=== PATIENT | female | born 1950 | race Caucasian/White ===

== ENCOUNTER → 2017-07-22 | Outpatient (CLI) | payer MEDICARE, OTHER ==
[2017-07-22 13:50] LABS: Appearance,Urine Clear (Clear); Bacteria,Urine Rare /hpf; Bilirubin,Urine Negative (Negative); Blood,Urine Negative (Negative); Color,Urine Light Yellow; Glucose,Urine (UA) Negative (Negative); Ketones,Urine Negative (Negative); Leukocyte Esterase,Urine Trace (Negative); Mucus,Urine Rare /hpf; Nitrite,Urine Negative (Negative); PH, Urine 6.5 (5.0-8.0); Protein,Urine Negative (Negative); Specific Gravity,Urine 1.005 (1.001-1.035); Squamous Epithelial Cell,Urine 1 /hpf (0-4); Urobilinogen,Urine <2.0 mg/dL (<2.0); WBC,Urine 15 /hpf (0-5)
[2017-07-22 13:56] LABS: ALT 43 U/L (9-52); AST 27 U/L (14-36); Albumin 4.5 g/dL (3.5-5.0); Alkaline Phosphatase 95 U/L (38-126); Anion Gap 13 mmol/L; Blood Urea Nitrogen 14 mg/dL (7-17); Calcium 10.1 mg/dL (8.4-10.2); Carbon Dioxide 27 mmol/L (22-30); Chloride 100 mmol/L (98-107); Glucose 86 mg/dL (74-99); Phosphorus 3.5 mg/dL (2.5-4.5); Potassium 3.1 mmol/L (3.5-5.1); Sodium 140 mmol/L (137-145); Total Bilirubin 0.7 mg/dL (0.2-1.3); Total Protein 7.6 g/dL (6.3-8.2)
[2017-07-22 13:57] LABS: HCT 46.9 % (34.0-46.0); MCH 29.4 pg (25.0-35.0); MCHC 31.7 g/dL (31.0-37.0); MCV 92.8 fL (80.0-100.0); Mean Platelet Volume 7.2; Platelet Count 266 k/uL (150-450); RBC 5.06 m/uL (3.80-5.40); RDW 15.8 % (11.5-15.5); WBC 10.6 k/uL (3.8-10.6)
--- NOTE | 2017-07-22 13:58 | US ---
EXAMINATION TYPE: US kidneys/renal and bladder DATE OF EXAM: 07/22/2017 COMPARISON: CT abdomen and pelvis May 23, 2017 CLINICAL HISTORY: Chronic Kidney Disease Stage 3 N18.3. CKD, pt has no complaints at this time EXAM MEASUREMENTS: Right Kidney: 10.8 x 5.1 x 4.7 cm Left Kidney: 10.1 x 5.0 x 4.4 cm Right Kidney: No hydronephrosis or masses seen, possible small calculi scattered throughout- largest= 3mm Left Kidney: No hydronephrosis or masses seen, possible renal calculi scattered throughout- largest= 5mm Bladder: wnl Bilateral Jets seen: Only right jet seen There is no evidence for hydronephrosis at this point in time. No nephrolithiasis is seen. No sony s are identified on images saved. The urinary bladder is anechoic. Distal right ureter jet is seen. Punctate hyperechoic foci some shadowing correlate with small bilateral renal calculi on CT. Low dens e structure laterally mid pole level left kidney is not clearly identified on today's ultrasound susp ect small septated cyst. Consider short-term CT/MRI follow-up in 6-12 months time to further assess. IMPRESSION: No hydronephrosis is evident bilaterally.
[2017-07-22 14:04] LABS: HGB 14.9 gm/dL (11.4-16.0)
== END | disposition home or self-care (01) ==
LOC: RADUSWWP 12:54
PROVIDERS: ATTEND Internal Medicine
DX: N18.3 Chronic kidney disease, stage 3 (moderate) (principal); D64.9 Anemia, unspecified; N39.0 Urinary tract infection, site not specified; E83.39 Other disorders of phosphorus metabolism
CPT/HCPCS: 76770; 80053; 81001; 84100; 85027

== ENCOUNTER → 2017-08-16 | Outpatient (CLI) | payer MEDICARE, OTHER ==
[2017-08-16 10:49] LABS: Magnesium 1.9 mg/dL (1.6-2.3); Potassium 4.3 mmol/L (3.5-5.1)
== END | disposition home or self-care (01) ==
LOC: LABWHC1 10:14
PROVIDERS: ATTEND Internal Medicine
DX: E87.6 Hypokalemia (principal)
CPT/HCPCS: 36415; 83735; 84132

== ENCOUNTER → 2017-10-21 | Outpatient (CLI) | payer MEDICARE, OTHER ==
[2017-10-21 10:21] LABS: Appearance,Urine Clear (Clear); Bacteria,Urine Many /hpf; Bilirubin,Urine Negative (Negative); Blood,Urine Negative (Negative); Color,Urine Light Yellow; Glucose,Urine (UA) Negative (Negative); Ketones,Urine Negative (Negative); Leukocyte Esterase,Urine Trace (Negative); Nitrite,Urine Negative (Negative); PH, Urine 6.5 (5.0-8.0); Protein,Urine Negative (Negative); RBC,Urine <1 /hpf (0-5); Specific Gravity,Urine 1.006 (1.001-1.035); Squamous Epithelial Cell,Urine <1 /hpf (0-4); Urobilinogen,Urine <2.0 mg/dL (<2.0); WBC,Urine 10 /hpf (0-5)
[2017-10-21 10:44] LABS: ALT 53 U/L (9-52); AST 35 U/L (14-36); Alkaline Phosphatase 98 U/L (38-126); Anion Gap 16 mmol/L; Blood Urea Nitrogen 18 mg/dL (7-17); Calcium 9.7 mg/dL (8.4-10.2); Carbon Dioxide 27 mmol/L (22-30); Chloride 102 mmol/L (98-107); Glucose 91 mg/dL (74-99); Magnesium 1.4 mg/dL (1.6-2.3); Phosphorus 3.7 mg/dL (2.5-4.5); Potassium 3.1 mmol/L (3.5-5.1); Sodium 145 mmol/L (137-145); Total Bilirubin 0.7 mg/dL (0.2-1.3); Total Protein 6.8 g/dL (6.3-8.2); Uric Acid 4.3 mg/dL (3.7-7.4)
[2017-10-21 15:07] LABS: Vitamin D 25 Hydroxy 11.6 ng/mL (30.0-100.0)
[2017-10-21 16:17] LABS: Parathyroid Hormone Intact 36.6 pg/mL (14.0-72.0)
== END | disposition home or self-care (01) ==
LOC: LABWHC1 09:25
PROVIDERS: ATTEND Internal Medicine
DX: N39.0 Urinary tract infection, site not specified (principal); E21.3 Hyperparathyroidism, unspecified; E55.9 Vitamin D deficiency, unspecified; M10.9 Gout, unspecified; E87.2 Acidosis; E87.6 Hypokalemia
CPT/HCPCS: 36415; 80053; 81001; 82306; 83735; 83970; 84100; 84550

== ENCOUNTER → 2017-11-01 | Outpatient (CLI) | payer MEDICARE, OTHER ==
--- NOTE | 2017-11-01 15:32 | US ---
EXAMINATION TYPE: US kidneys/renal and bladder DATE OF EXAM: 11/01/2017 COMPARISON: NONE CLINICAL HISTORY: 67-year-old female E87.2 metabolic acidosis. Technique: Multiple sonographic images of the kidneys and bladder are obtained. FINDINGS: Right Kidney: 10.8 x 5.0 x 4.5 cm without hydronephrosis. Scattered echogenic foci throughout large st measuring 0.3 x 0.2 x 0.4cm Left Kidney: 10.2 x 5.0 x 4.9 cm without hydronephrosis. Scattered echogenic foci throughout largest measuring 0.3 x 0.3 x 0.3cm Underdistention of the bladder limits its evaluation.Bilateral Jets seen: no IMPRESSION: Bilateral nephrolithiasis measuring up to 4 mm. No hydronephrosis on either side. Underdistention of the bladder limits its evaluation.
== END | disposition home or self-care (01) ==
LOC: RADUSWWP 13:25
PROVIDERS: ATTEND Internal Medicine Nephrology
DX: N20.0 Calculus of kidney (principal)
CPT/HCPCS: 76770

== ENCOUNTER → 2017-11-02 | Outpatient (CLI) | payer MEDICARE, OTHER ==
[2017-11-02 11:55] LABS: Basophils # (A) 0.1 k/uL (0-0.2); Basophils % (A) 0 %; Eosinophils # (A) 0.1 k/uL (0-0.7); Eosinophils % (A) 1 %; HCT 51.9 % (34.0-46.0); HGB 17.2 gm/dL (11.4-16.0); Lymphocytes # (A) 3.2 k/uL (1.0-4.8); Lymphocytes % (A) 24 %; MCH 29.6 pg (25.0-35.0); MCHC 33.1 g/dL (31.0-37.0); MCV 89.3 fL (80.0-100.0); Mean Platelet Volume 6.6; Monocytes # (A) 1.1 k/uL (0-1.0); Monocytes % (A) 8 %; Neutrophils # (A) 8.4 k/uL (1.3-7.7); Neutrophils % (A) 64 %; Platelet Count 396 k/uL (150-450); RBC 5.81 m/uL (3.80-5.40); RDW 14.2 % (11.5-15.5); WBC 13.1 k/uL (3.8-10.6)
[2017-11-02 12:05] LABS: Albumin 4.8 g/dL (3.5-5.0); Magnesium 1.5 mg/dL (1.6-2.3); Total Bilirubin 0.9 mg/dL (0.2-1.3); Total Protein 8.2 g/dL (6.3-8.2)
[2017-11-02 12:39] LABS: Potassium 2.8 mmol/L (3.5-5.1)
== END | disposition home or self-care (01) ==
LOC: LABWHC1 11:15
PROVIDERS: ATTEND Nurse Practitioner Women's Health
DX: E87.6 Hypokalemia (principal); R19.7 Diarrhea, unspecified; R10.84 Generalized abdominal pain; R53.83 Other fatigue
CPT/HCPCS: 36415; 80053; 83735; 84443; 85025

== ENCOUNTER → 2017-11-05 | Outpatient (CLI) | payer MEDICARE, OTHER ==
[2017-11-05 11:01] LABS: Magnesium 2.8 mg/dL (1.6-2.3); Potassium 3.5 mmol/L (3.5-5.1)
== END | disposition home or self-care (01) ==
LOC: LABWHC1 08:40
PROVIDERS: ATTEND Nurse Practitioner Women's Health
DX: N30.01 Acute cystitis with hematuria (principal); E87.6 Hypokalemia; R10.84 Generalized abdominal pain; R19.7 Diarrhea, unspecified; R53.83 Other fatigue
CPT/HCPCS: 36415; 80061; 83735; 84132

== ENCOUNTER → 2017-11-15 | Outpatient (CLI) | payer MEDICARE, OTHER ==
--- NOTE | 2017-11-15 15:09 | CT ---
EXAMINATION TYPE: CT abdomen pelvis wo/w con DATE OF EXAM: 11/15/2017 HISTORY: Calcification in pelvis-per patient, diarrhea and possible mass CT DLP: 768mGycm Automated Exposure Control for Dose Reduction was Utilized. CONTRAST: CT scan of the abdomen and pelvis is performed with oral and without and with IV Contrast, patient in jected with 100 mL of Isovue 300. COMPARISON: CT abdomen and pelvis May 23, 2017. FINDINGS: LUNG BASES: There is patchy bibasilar linear scarring and/or atelectasis redemonstrated. LIVER/GB: Cholecystectomy clips are redemonstrated. PANCREAS: There is fairly moderate fat replaced atrophy at level of pancreatic head redemonstrated wi th mild fat replaced atrophy in the body again seen. SPLEEN: No significant abnormality is seen. ADRENALS: Stable low dense thickening to both adrenal glands favors benign hyperplasia. KIDNEYS: Noncontrast images show a few small scattered renal calculi bilaterally estimated to 4 calcu li in both kidneys with largest measuring 3 mm mid pole level left kidney coronal image 54. Postcontr ast images show symmetric cortical medullary uptake and excretion from both kidneys with hyperdense 1 cm lateral lesion seen best series 8 image 37 not significantly changed from prior study, suspected proteinaceous cyst. BOWEL: With oral contrast reaches level of right colon. There is no suspicious small or large bowel d ilatation. Small hiatal hernia is redemonstrated. There is persistent 2.8 x 1.7 cm fat dense lesion o r lipoma in the proximal duodenum seen best series 3 image 30 not causing significant gastric obstruc tion. There are numerous scattered clips and sutures throughout the abdomen. There is folding of dewayne l in the anterior right upper pelvis near axial image 68, evaluation at this level is suboptimal due to lack of enteric contrast. I do suspect partial adhesions at this level. UTERUS/ADNEXA: Uterus is surgically absent or markedly atrophic in appearance LYMPH NODES: No greater than 1cm abdominal or pelvic lymph nodes are appreciated. OSSEOUS STRUCTURES: Osseous structures are demineralized. There is moderate joint space loss in both hips. There is mild facet arthropathy lower lumbar levels. OTHER: Their scar tissue anterior abdominal wall without focal hernia defect. Bowel loops extend to t he anterior abdominal wall. IMPRESSION: No suspicious malignant mass or adenopathy. Postsurgical change redemonstrated. 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 There may be partial distal small bowel obstruction with folded bowel there are clips in the right upper pelvis anteriorly redemonstrated.
== END | disposition home or self-care (01) ==
LOC: RADCTMAIN 12:00
PROVIDERS: ATTEND Family Medicine
DX: D17.79 Benign lipomatous neoplasm of other sites (principal); R19.4 Change in bowel habit; R19.00 Intra-abdominal and pelvic swelling, mass and lump, unspecified site; Z98.890 Other specified postprocedural states; Z96.89 Presence of other specified functional implants
CPT/HCPCS: 82565; 84520; 74178; 36415; Q9967

== ENCOUNTER → 2017-11-25 | Outpatient (CLI) | payer MEDICARE, OTHER ==
[2017-11-25 11:12] LABS: Magnesium 1.8 mg/dL (1.6-2.3); Potassium 4.7 mmol/L (3.5-5.1)
== END | disposition home or self-care (01) ==
LOC: LABWHC1 10:34
PROVIDERS: ATTEND Internal Medicine
DX: E87.6 Hypokalemia (principal)
CPT/HCPCS: 36415; 83735; 84132

== ENCOUNTER → 2017-11-29 | Outpatient (CLI) | payer MEDICARE, OTHER ==
--- NOTE | 2017-11-29 16:29 | BD ---
EXAMINATION TYPE: MG DEXA axial skeleton. DATE OF EXAM: 11/29/2017 COMPARISON: NONE CLINICAL HISTORY: 67-year-old female postmenopausal without HRT Height: 5 FT 2 IN Weight: 129 FRAX RISK QUESTIONS: History of Fracture in Adulthood: YES Secondary Osteoporosis: 3. Menopause before 45: YES RISK FACTORS HISTORY OF: History of Wrist Fracture: LT WRIST When: EARLY 20'S Family History of Osteoporosis: YES Active: YES Postmenopausal woman: TOTAL HYST AGE 28 Take estrogen and/or progesterone medications: PREMARIN How lon YEARS NOT NOW MEDICATIONS: Additional Medications: MAGNESIUM,POTASSIUM, VIT D , Additional History: PREV COLON SURG EXAM MEASUREMENTS: Bone mineral densitometry was performed using the SingOn System. Bone mineral density as measured about the Lumbar spine is: ----- L1-L4(G/cm2): 1.103 T Score Values are as follows: ----- L2: -1.1 ----- L3: 0.1 ----- L4: 0.2 ----- L1-L4: -0.6 BASELINE Bone mineral density about the R hip (g/cm2): 0.878 Bone mineral density about the L hip (g/cm2): 0.891 T Score values are as follows: -----R Neck: -1.2 -----L Neck: -1.1 -----R Total: -0.9 -----L Total: -0.9 BASELINE IMPRESSION: Osteopenia (T Score between -2.5 and -1). There is slightly increased risk of fracture and the patient may be considered for treatment. Re-Screen 2-5 years. NOTE: T-SCORE=SD OF THE YOUNG ADULT MEAN.
== END | disposition home or self-care (01) ==
LOC: RADBDWWP 07:45
PROVIDERS: ATTEND Family Medicine
DX: M85.88 Other specified disorders of bone density and structure, other site (principal); Z78.0 Asymptomatic menopausal state
CPT/HCPCS: 77080

== ENCOUNTER → 2017-12-20 | Outpatient (CLI) | payer MEDICARE, OTHER ==
[2017-12-20 09:31] LABS: Anion Gap 14 mmol/L; Blood Urea Nitrogen 19 mg/dL (7-17); Calcium 9.1 mg/dL (8.4-10.2); Carbon Dioxide 20 mmol/L (22-30); Chloride 108 mmol/L (98-107); Glucose 93 mg/dL (74-99); Magnesium 1.6 mg/dL (1.6-2.3); Phosphorus 2.6 mg/dL (2.5-4.5); Potassium 3.8 mmol/L (3.5-5.1); Sodium 142 mmol/L (137-145)
[2017-12-20 09:37] LABS: Appearance,Urine Clear (Clear); Bacteria,Urine Rare /hpf; Bilirubin,Urine Negative (Negative); Blood,Urine Negative (Negative); Color,Urine Yellow; Glucose,Urine (UA) Negative (Negative); Ketones,Urine Negative (Negative); Leukocyte Esterase,Urine Trace (Negative); Mucus,Urine Rare /hpf; Nitrite,Urine Negative (Negative); Protein,Urine Negative (Negative); RBC,Urine <1 /hpf (0-5); Specific Gravity,Urine 1.018 (1.001-1.035); Squamous Epithelial Cell,Urine 5 /hpf (0-4); Urobilinogen,Urine <2.0 mg/dL (<2.0); WBC,Urine 3 /hpf (0-5)
[2017-12-20 16:47] LABS: Vitamin D 25 Hydroxy 42.9 ng/mL (30.0-100.0)
[2017-12-20 17:26] LABS: Parathyroid Hormone Intact 29.3 pg/mL (14.0-72.0)
== END | disposition home or self-care (01) ==
LOC: LABWHC1 08:39
PROVIDERS: ATTEND Nurse Practitioner Family
DX: E87.2 Acidosis (principal); E55.9 Vitamin D deficiency, unspecified; N39.0 Urinary tract infection, site not specified
CPT/HCPCS: 36415; 80048; 81001; 82306; 83735; 83970; 84100

== ENCOUNTER 2017-12-23 07:18 | Day surgery (SDC) | payer MEDICARE, OTHER ==
[2017-12-21 11:09] VITALS: BMI 22.8
[~2017-12-23 07:18] MED LIST: LACTATED RINGERS 1,000 ML IV SCH; LIDOCAINE 1% 20 ML VIAL (10MG/ML) FOR IV START INTRADERMA PRN
[2017-12-23 08:09] VITALS: TEMP 97.5
[2017-12-23] MEDS ORDERED: LACTATED RINGERS 1,000 ML IV ONE (08:15)
[2017-12-23] MEDS ORDERED: PROPOFOL 10 MG/ML 20 ML VIAL IV ONE (09:09)
--- NOTE | 2017-12-23 10:01 | P.PCN ---
Date of Procedure: 12/23/17 Procedure(s) Performed: BRIEF HISTORY: Patient is a 67-year-old pleasant white female, scheduled for an elective colonoscopy as a part of variation of chronic diarrhea for the last several 5 years duration. PROCEDURE PERFORMED: Colonoscopy with random biopsies. PREOPERATIVE DIAGNOSIS: Chronic diarrhea 5 years duration. IV sedation per Anesthesia. PROCEDURE: After informed consent was obtained, the patient, was brought into the endoscopy unit. IV sedation was administered by Anesthesia under continuous monitoring. Digital rectal examination was normal. Initially the Olympus CF- 160 flexible video colonoscope was then inserted in the rectum, gradually advanced into the right colon with the ileal colic anastomosis was visualized and appeared normal. Mucosa of the ascending colon, transverse colon, descending colon, sigmoid colon, and rectum appeared normal. Scattered left sided diverticulosis seen. Random biopsies were done from ascending and descending colon to rule out Madan scope/collagenous colitis. Retroflexion was performed in the rectum and no lesions were seen. The patient tolerated the procedure well. IMPRESSION: Normal right-sided ileo colic anastomosis Scattered left-sided diverticulosis. No evidence of colitis or colorectal neoplasia RECOMMENDATIONS: Findings of this examination were discussed with the patient as well as her family. She was advised to follow with the biopsy results. She' ll be seen in the office in one week..
[2017-12-23 10:04] VITALS: RESP 18
[2017-12-23 10:20] VITALS: BP 114/58; PULSE 60
== END 2017-12-23 10:51 | disposition home or self-care (01) ==
LOC: ORWHC2ENDO 07:18
PROVIDERS: ATTEND Internal Medicine Gastroenterology
DX: K52.9 Noninfective gastroenteritis and colitis, unspecified (principal); K57.30 Diverticulosis of large intestine without perforation or abscess without bleeding; Z98.0 Intestinal bypass and anastomosis status; I25.2 Old myocardial infarction; I25.10 Atherosclerotic heart disease of native coronary artery without angina pectoris; E78.5 Hyperlipidemia, unspecified; Z79.899 Other long term (current) drug therapy
CPT/HCPCS: 88305; 45380; J2704

== ENCOUNTER → 2018-02-06 | Outpatient (CLI) | payer MEDICARE, OTHER ==
[2018-02-06 18:05] LABS: Gliadin AB IgA, Unit 36.5 U/mL
== END | disposition home or self-care (01) ==
LOC: LABWHC1 11:05
PROVIDERS: ATTEND Physician Assistant
DX: R19.7 Diarrhea, unspecified (principal)
CPT/HCPCS: 36415; 83516

== ENCOUNTER 2018-02-23 10:03 | Day surgery (SDC) | payer MEDICARE, OTHER ==
[2018-02-20 11:51] VITALS: BMI 22.8
[~2018-02-23 10:03] MED LIST changes: -LIDOCAINE 1% 20 ML VIAL (10MG/ML) FOR IV START INTRADERMA PRN
[2018-02-23 10:32] VITALS: RESP 16; TEMP 97.7
[2018-02-23] MEDS ORDERED: LIDOCAINE 1% 20 ML VIAL (10MG/ML) FOR IV START INTRADERMA ONE (11:17)
[2018-02-23] MEDS ORDERED: LIDOCAINE 1% INJ 10MG/ML (20 ML MDV) ONE (12:42)
[2018-02-23] MEDS ORDERED: PROPOFOL 10 MG/ML 20 ML VIAL IV ONE (12:42)
--- NOTE | 2018-02-23 12:52 | P.PCN ---
Date of Procedure: 02/23/18 Procedure(s) Performed: BRIEF HISTORY: Patient is a 68-year-old, pleasant, white female, scheduled for an upper endoscopy as a part of evaluation of abdominal pain and chronic diarrhea for several years duration.. PROCEDURE PERFORMED: Esophagogastroduodenoscopy with biopsy. PREOPERATIVE DIAGNOSIS:. Diarrhea and abdominal pain of several years duration. IV sedation per anesthesia. PROCEDURE: After informed consent was obtained, the patient was brought into the endoscopy unit. IV sedation was administered by Anesthesia under continuous monitoring. Initially the Olympus GIF-140 video endoscope was inserted into the mouth. Esophagus intubated without any difficulty. It was gradually advanced into the stomach and duodenum and carefully examined. The bulb and the second part of the duodenum appeared normal. Multiple biopsies were done from the duodenum to rule out celiac disease. The scope at this time was withdrawn to the stomach, adequately insufflated with air, and upon careful examination, mucosa of the antrum had scattered erosions and biopsies were done from this area. The, body, cardia and the fundus appeared normal. The scope was then withdrawn into the esophagus. The GE junction was located at 39 cm from the incisors. The esophagus appeared normal. There were no erosions or ulcerations seen and the patient tolerated the procedure well. IMPRESSION: 1. Normal-appearing duodenum status post multiple biopsies to rule out celiac disease.. 2. Antral erosive gastritis. RECOMMENDATIONS: The findings of this examination were discussed with the patient as well as her family. She was advised to follow with the biopsy results. She'll be seen in the office in 2 weeks..
[2018-02-23 13:15] VITALS: BP 136/81; PULSE 76
== END 2018-02-23 13:35 | disposition home or self-care (01) ==
LOC: ORWHC2ENDO 10:03
PROVIDERS: ATTEND Internal Medicine Gastroenterology
DX: K29.50 Unspecified chronic gastritis without bleeding (principal); K29.00 Acute gastritis without bleeding; Z90.49 Acquired absence of other specified parts of digestive tract; Z87.891 Personal history of nicotine dependence; Z79.899 Other long term (current) drug therapy
CPT/HCPCS: 88305; 43239; J2001; J2704

== ENCOUNTER → 2018-03-13 | Outpatient (CLI) | payer MEDICARE, OTHER ==
--- NOTE | 2018-03-13 20:42 | CT ---
EXAMINATION TYPE: CT abdomen pelvis wo con DATE OF EXAM: 03/13/2018 HISTORY: Vomiting x3 days and right flank and inguinal pain. CT DLP: 711 mGycm. Automated Exposure Control for Dose Reduction was Utilized. TECHNIQUE: CT scan of the abdomen and pelvis is performed without oral or IV contrast. COMPARISON: CT abdomen November 15, 2017 FINDINGS: Within the limitations of a noncontrast study, the following observations are made. LUNG BASES: There is bibasilar scarring and/or atelectasis redemonstrated. There is stable mild cardi omegaly with tiny pericardial effusion. LIVER/GB: Cholecystectomy clips are redemonstrated. PANCREAS: There is fairly moderate fat replaced atrophy of pancreas most prominent in head with inter jeannette progression from prior CT. SPLEEN: No significant abnormality is seen. ADRENALS: There is persistent thickening to both adrenal glands felt stable favoring benign hyperplas ia. KIDNEYS: There are 2 calculi measuring 2 mm or smaller in size compared to left kidney redemonstrated . There is subcentimeter low dense lesion laterally midpole of left kidney coronal image 53 2 small t o further characterize but presumably benign stable from prior. No right-sided nephrolithiasis. No hy dronephrosis or obstructing urinary calculi are identified. Bladder is poorly distended and thus subo ptimally evaluated on current study. Some ill-defined fluid superiorly is present. Mild wall thickeni ng is noted. BOWEL: Evaluation bowel is suboptimal secondary to lack of enteric contrast. There is redemonstration of 2.0 cm fat density lesion probable lipoma at first portion of duodenum axial image 58. No signifi cant proximal dilatation of stomach is seen. There are some prominent fluid filled small and large ponce wel loops throughout the abdomen and pelvis similar to prior. Sutures are seen at level of cecum in t he right lower quadrant. There are diverticula in the redundant sigmoid colon in the pelvis. There is no CT evidence for acute diverticulitis. Colonic air-fluid levels raise concern for colitis and/or d iarrhea. Correlate clinically. Mild wall thickening in the left colon is also noted could reflect col itis. GENITAL ORGANS: Uterus is surgically absent. LYMPH NODES: No greater than 1cm abdominal or pelvic lymph nodes are appreciated. OSSEOUS STRUCTURES: Mild multilevel spurring in the thoracic spine is again seen. OTHER: Moderate calcified plaque of the aorta extends into branch vessels. Surgical sutures in the ri ght lower quadrant mesentery are redemonstrated. IMPRESSION: 1. Persistent fluid prominent small and large bowel loops with mild wall thickening left colon could reflect product of diarrhea or mild colitis. Correlate clinically. Stable duodenal lipoma causing sig nificant obstruction. Increasing fat replaced atrophy of pancreas noted.
== END | disposition home or self-care (01) ==
LOC: RADCTMAIN 18:04
PROVIDERS: ATTEND Family Medicine
DX: D17.79 Benign lipomatous neoplasm of other sites (principal); K63.89 Other specified diseases of intestine
CPT/HCPCS: 74176

== ENCOUNTER 2018-04-19 19:06 | Emergency (ER) | payer OTHER, MEDICARE ==
[2018-04-19] MEDS ORDERED: KETOROLAC 60 MG/2 ML VIAL IM STA (19:24)
--- NOTE | 2018-04-19 19:27 | ED ---
General Adult HPI - General Chief complaint: Extremity Injury, Lower Stated complaint: rt foot injury Time Seen by Provider: 04/19/18 19:06 Source: patient, RN notes reviewed Mode of arrival: wheelchair Limitations: no limitations - History of Present Illness Initial comments: This is a 68-year-old female who presents emergency Department complaining of right knee pain. Patient states she was walking and Tripped by a dog and fell over and hurt her right knee. Patient states it hurt too much to ambulate so she was carried is a current brought here. Patient denies any foot or ankle pain. Patient denies any hip pain. Patient denies any head or neck trauma. Patient denies any other injury at this time. Patient denies any sites of bleeding. Patient states she has had a right knee replacement. - Related Data Home Medications Medication Instructions Recorded Confirmed Magnesium Oxide [Magox 400] 400 mg PO QID 07/16/16 02/20/18 Multivitamins, Thera [Multivitamin 1 tab PO DAILY 05/23/17 02/20/18 (formulary)] Cyclobenzaprine HCl 5 mg PO TID 02/20/18 02/20/18 Diphenoxylate HCl/Atropine 1 tab PO QID 02/20/18 02/20/18 [Lomotil 2.5-0.025 mg Tablet] Potassium Liquid 30mg/15ml 30 ml PO BID 02/20/18 02/20/18 Sodium Bicarbonate Tab 650 mg PO BID 02/20/18 02/20/18 Allergies Allergy/AdvReac Type Severity Reaction Status Date / Time No Known Allergies Allergy Verified 04/19/18 19:10 Review of Systems ROS Statement: Those systems with pertinent positive or pertinent negative responses have been documented in the HPI. ROS Other: All systems not noted in ROS Statement are negative. 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, mult skin cancer on face Last Myocardial Infarction Date:: 1994 History of Any Multi-Drug Resistant Organisms: MRSA Date of last positivie culture/infection: 2010- MDRO Source:: abdomen Past Surgical History: Bowel Resection, Cholecystectomy, Heart Catheterization, Hysterectomy, Joint Replacement, Tonsillectomy Additional Past Surgical History / Comment(s): Ovarian cysts removed, skin cancer removed from face, bowel surgery x 2 for obstruction(1st 40 yrs ago, 2010), rt knee replacement, Past Anesthesia/Blood Transfusion Reactions: No Reported Reaction Past Psychological History: No Psychological Hx Reported Smoking Status: Former smoker Past Alcohol Use History: Occasional Past Drug Use History: None Reported - Past Family History Father Family Medical History: Coronary Artery Disease (CAD), Diabetes Mellitus Mother Family Medical History: Cancer Additional Family Medical History / Comment(s): breast Sister(s) Family Medical History: Cancer Additional Family Medical History / Comment(s): Breast General Exam - General Exam Comments Initial Comments: GENERAL Patient is well-developed and well-nourished. Patient is in mild distress. EYES Patient's pupils are equal and round. Extraocular motion is intact SKIN Unremarkable NEURO The patient is alert and oriented 3 PYSCH Patient has normal interpersonal interactions. MUSCULOSKELETAL Tenderness on the anterior inferior aspect of her knee. There is no swelling noted there is no effusion noted Limitations: no limitations Course Vital Signs 04/19/18 19:07 Temperature 98.2 F Pulse Rate 84 Respiratory 18 Rate Blood Pressure 130/71 O2 Sat by Pulse 97 Oximetry Medical Decision Making - Medical Decision Making X-ray of the knee shows no acute fracture. Disposition Clinical Impression: Knee contusion Disposition: HOME SELF-CARE Condition: Good Instructions: Knee Pain (ED) Is patient prescribed a controlled substance at d/c from ED?: No Referrals: Chau Brennan Jr, DO [Primary Care Provider] - 1-2 days Time of Disposition: 19:53
--- NOTE | 2018-04-19 19:48 | XR ---
EXAMINATION TYPE: XR knee complete RT DATE OF EXAM: 04/19/2018 COMPARISON: NONE HISTORY: Knee pain after a fall TECHNIQUE: 3 views FINDINGS: There is a right knee prosthesis. Components appear in anatomic position. There is some ost eopenia. IMPRESSION: No fracture seen.
[2018-04-19 20:31] VITALS: BP 125/64; PULSE 76; RESP 16; TEMP 97.4
== END 2018-04-19 20:32 | disposition home or self-care (01) ==
LOC: EC 19:06
DX: S80.01XA Contusion of right knee, initial encounter (principal); Z85.828 Personal history of other malignant neoplasm of skin; Z86.14 Personal history of Methicillin resistant Staphylococcus aureus infection; Z87.891 Personal history of nicotine dependence; Z79.899 Other long term (current) drug therapy; Z96.651 Presence of right artificial knee joint; Z95.818 Presence of other cardiac implants and grafts; W01.0XXA Fall on same level from slipping, tripping and stumbling without subsequent striking against object, initial encounter; Y92.009 Unspecified place in unspecified non-institutional (private) residence as the place of occurrence of the external cause
CPT/HCPCS: 96372; 99283

== ENCOUNTER → 2018-09-15 | Outpatient (CLI) | payer OTHER, MEDICARE ==
[2018-09-15 09:41] LABS: Appearance,Urine Clear (Clear); Bilirubin,Urine Negative (Negative); Blood,Urine Negative (Negative); Color,Urine Light Yellow; Glucose,Urine (UA) Negative (Negative); Ketones,Urine Negative (Negative); Leukocyte Esterase,Urine Negative (Negative); Nitrite,Urine Negative (Negative); PH, Urine 6.5 (5.0-8.0); Protein,Urine Negative (Negative); Specific Gravity,Urine 1.004 (1.001-1.035); Urobilinogen,Urine <2.0 mg/dL (<2.0)
[2018-09-15 17:13] LABS: Parathyroid Hormone Intact 34.8 pg/mL (14.0-72.0)
[2018-09-15 17:38] LABS: Anion Gap 9.5 mmol/L (4.00-12.00); Calcium 9.2 mg/dL (8.7-10.3); Carbon Dioxide 24.5 mmol/L (21.6-31.8); Magnesium 1.3 mg/dL (1.5-2.4); Phosphorus 2.9 mg/dL (2.4-5.1); Potassium 3.9 mmol/L (3.5-5.5)
[2018-09-15 17:39] LABS: Vitamin D 25 Hydroxy 23.1 ng/mL (30.0-100.0)
== END | disposition home or self-care (01) ==
LOC: LABWHC1 08:52
PROVIDERS: ATTEND Nurse Practitioner Family
DX: E87.2 Acidosis (principal); E55.9 Vitamin D deficiency, unspecified; N39.0 Urinary tract infection, site not specified
CPT/HCPCS: 36415; 80048; 81003; 82306; 83735; 83970; 84100

== ENCOUNTER → 2018-12-29 | Outpatient (CLI) | payer OTHER, MEDICARE ==
[2018-12-29 16:29] LABS: African American GFR (CKD) 87.2 (60.0-200.0); Anion Gap 9.8 mmol/L (4.00-12.00); BUN/Creat Ratio 31.25 Ratio (12.00-20.00); Calcium 9.2 mg/dL (8.7-10.3); Carbon Dioxide 24.2 mmol/L (21.6-31.8); Potassium 3.1 mmol/L (3.5-5.5)
== END | disposition home or self-care (01) ==
LOC: LABWHC1 07:55
PROVIDERS: ATTEND Nurse Practitioner Family
DX: E87.6 Hypokalemia (principal)
CPT/HCPCS: 36415; 80048

== ENCOUNTER → 2019-01-03 | Outpatient (CLI) | payer OTHER, MEDICARE | END | disposition home or self-care (01) | LOC: LABWHC1 11:06 | PROVIDERS: ATTEND Nurse Practitioner Family | DX: E87.6 Hypokalemia (principal) | CPT/HCPCS: 36415; 84132 ==

== ENCOUNTER → 2019-01-08 | Outpatient (CLI) | payer MEDICARE, OTHER | END | disposition home or self-care (01) | LOC: LABWHC1 10:48 | PROVIDERS: ATTEND Internal Medicine | DX: E87.6 Hypokalemia (principal) | CPT/HCPCS: 36415; 84132 ==

== ENCOUNTER → 2019-01-26 | Outpatient (CLI) | payer MEDICARE, OTHER ==
--- NOTE | 2019-01-26 15:59 | CT ---
EXAMINATION TYPE: CT lumbar spine wo con DATE OF EXAM: 01/26/2019 COMPARISON: None HISTORY: Low back and right hip pain. CT DLP: 397.[address] of the lumbar spine was performed. Bone and soft tissue window settings are submitted as well as coronal and sagittal reconstructions. L1-L2: Normal disc space height. No disc herniation protrusion or central stenosis. No facet joint arthropathy. No evidence for foraminal encroachment. L2-L3: Normal disc space height. No disc herniation protrusion or central stenosis. No facet joint arthropathy. No evidence for foraminal encroachment. L3-L4: There is mild degenerative disc space narrowing. Mild posterior disc bulge. No evidence for he rniation or central stenosis. No foraminal encroachment. L4-L5: There is mild degenerative disc space narrowing. Mild posterior disc bulge. No evidence for he rniation or central stenosis. No foraminal encroachment. L5-S1: There is mild degenerative disc space narrowing. Mild posterior disc bulge. No evidence for he rniation or central stenosis. No foraminal encroachment. No paraspinal masses are identified. Lumbar segments are free if fracture. IMPRESSION: 1. Degenerative disc space narrowing and posterior disc bulge. No central stenosis or disc herniation seen. No evidence for fracture or malalignment.
== END | disposition home or self-care (01) ==
LOC: RADCTMAIN 15:32
PROVIDERS: ATTEND Family Medicine
DX: M99.73 Connective tissue and disc stenosis of intervertebral foramina of lumbar region (principal); M51.86 Other intervertebral disc disorders, lumbar region; M51.36 Other intervertebral disc degeneration, lumbar region
CPT/HCPCS: 72131

== ENCOUNTER → 2019-02-06 | Outpatient (CLI) | payer MEDICARE, OTHER ==
[2019-02-06 09:48] LABS: Basophils # (A) 0.1 k/uL (0-0.2); Basophils % (A) 1 %; Eosinophils # (A) 0.1 k/uL (0-0.7); Eosinophils % (A) 2 %; HCT 36.9 % (34.0-46.0); Lymphocytes # (A) 1.8 k/uL (1.0-4.8); Lymphocytes % (A) 29 %; MCH 30.4 pg (25.0-35.0); MCHC 32.7 g/dL (31.0-37.0); MCV 92.9 fL (80.0-100.0); Monocytes # (A) 0.5 k/uL (0-1.0); Monocytes % (A) 8 %; Neutrophils # (A) 3.5 k/uL (1.3-7.7); Neutrophils % (A) 57 %; Platelet Count 278 k/uL (150-450); RBC 3.97 m/uL (3.80-5.40); RDW 15.6 % (11.5-15.5)
[2019-02-06 17:19] LABS: Anion Gap 10.2 mmol/L (4.00-12.00); Calcium 8.9 mg/dL (8.7-10.3); Carbon Dioxide 28.8 mmol/L (21.6-31.8); Potassium 3.4 mmol/L (3.5-5.5)
== END | disposition home or self-care (01) ==
LOC: LABWHC1 08:32
PROVIDERS: ATTEND Family Medicine
DX: R60.1 Generalized edema (principal)
CPT/HCPCS: 36415; 80048; 84443; 84450; 84460; 85025

== ENCOUNTER → 2019-02-19 | Outpatient (CLI) | payer MEDICARE, OTHER | END | disposition home or self-care (01) | LOC: LABWHC1 08:40 | PROVIDERS: ATTEND Internal Medicine | DX: E87.6 Hypokalemia (principal) | CPT/HCPCS: 36415; 84132 ==

== ENCOUNTER → 2019-03-10 | Outpatient (CLI) | payer MEDICARE, OTHER | END | disposition home or self-care (01) | LOC: LABWHC1 08:20 | PROVIDERS: ATTEND Internal Medicine | DX: E87.6 Hypokalemia (principal) | CPT/HCPCS: 36415; 84132 ==

== ENCOUNTER → 2019-04-02 | Outpatient (CLI) | payer MEDICARE, OTHER ==
[2019-04-02 10:57] LABS: Appearance,Urine Clear (Clear); Bacteria,Urine Many /hpf; Bilirubin,Urine Negative (Negative); Blood,Urine Negative (Negative); Color,Urine Yellow; Glucose,Urine (UA) Negative (Negative); Ketones,Urine Negative (Negative); Leukocyte Esterase,Urine Trace (Negative); Mucus,Urine Rare /hpf; Nitrite,Urine Positive (Negative); Protein,Urine Trace (Negative); RBC,Urine 1 /hpf (0-5); Specific Gravity,Urine 1.018 (1.001-1.035); Squamous Epithelial Cell,Urine 1 /hpf (0-4); Urobilinogen,Urine <2.0 mg/dL (<2.0); WBC,Urine 7 /hpf (0-5)
[2019-04-02 16:31] LABS: Anion Gap 8.9 mmol/L (4.00-12.00); Calcium 9.6 mg/dL (8.7-10.3); Carbon Dioxide 29.1 mmol/L (21.6-31.8); Magnesium 1.6 mg/dL (1.5-2.4); Potassium 3.8 mmol/L (3.5-5.5)
== END | disposition home or self-care (01) ==
LOC: LABWHC1 09:05
PROVIDERS: ATTEND Nurse Practitioner Family
DX: N20.0 Calculus of kidney (principal); E55.9 Vitamin D deficiency, unspecified; E87.6 Hypokalemia
CPT/HCPCS: 36415; 80048; 81001; 83735; 83970

== ENCOUNTER → 2019-05-22 | Outpatient (CLI) | payer MEDICARE, OTHER | END | disposition home or self-care (01) | LOC: CPPFTMAIN 09:31 | PROVIDERS: ATTEND Family Medicine | DX: J44.9 Chronic obstructive pulmonary disease, unspecified (principal); R94.2 Abnormal results of pulmonary function studies | CPT/HCPCS: 94060; 94726; 94729 ==

== ENCOUNTER 2019-06-11 11:02 | Inpatient (IN) | payer MEDICARE, OTHER ==
[2019-06-11] MEDS ORDERED: ASPIRIN 81 MG PO STA (11:41)
[2019-06-11] MEDS ORDERED: NITROGLYCERIN OINT 1 INCH/GM PACKET TOPICAL STA (11:41)
--- NOTE | 2019-06-11 11:44 | ED ---
General Adult HPI - General Chief complaint: Chest Pain Stated complaint: UPPER LEFT ABDOMINAL PAIN Time Seen by Provider: 06/11/19 11:15 Source: patient, RN notes reviewed, old records reviewed Mode of arrival: ambulatory Limitations: no limitations - History of Present Illness Initial comments: This is a 69-year-old female who presents emergency Department with a past history of smoking which she stopped 20 years ago. Patient also has high blood pressure high cholesterol. Patient comes into the emergency department today stating that she had chest pain last night that lasted about an hour subsequent he went away per patient states it started about an hour ago to have chest pain in the central portion of the chest again. Patient states she was short of breath but denies any radiation of the pain denies any swelling denies any nausea. Patient denies any recent fever chills but does states she's had a dry cough occasionally. Patient states taking deep breath increases the pain. Patient states she's been fighting an upper after infection and so was her for a few days. Patient denies any abdominal pain patient denies nausea vomiting diarrhea. Patient denies any swelling to her legs or calf tenderness. - Related Data Home Medications Medication Instructions Recorded Confirmed Magnesium Oxide [Magox 400] 400 mg PO QID 07/16/16 02/20/18 Multivitamins, Thera [Multivitamin 1 tab PO DAILY 05/23/17 02/20/18 (formulary)] Cyclobenzaprine HCl 5 mg PO TID 02/20/18 02/20/18 Diphenoxylate HCl/Atropine 1 tab PO QID 02/20/18 02/20/18 [Lomotil 2.5-0.025 mg Tablet] Potassium Liquid 30mg/15ml 30 ml PO BID 02/20/18 02/20/18 Sodium Bicarbonate Tab 650 mg PO BID 02/20/18 02/20/18 Allergies Allergy/AdvReac Type Severity Reaction Status Date / Time No Known Allergies Allergy Verified 06/11/19 11:12 Review of Systems ROS Statement: Those systems with pertinent positive or pertinent negative responses have been documented in the HPI. ROS Other: All systems not noted in ROS Statement are negative. 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, mult skin cancer on face Last Myocardial Infarction Date:: 1994 History of Any Multi-Drug Resistant Organisms: MRSA Date of last positivie culture/infection: 2010- MDRO Source:: abdomen Past Surgical History: Bowel Resection, Cholecystectomy, Heart Catheterization, Hysterectomy, Joint Replacement, Tonsillectomy Additional Past Surgical History / Comment(s): Ovarian cysts removed, skin cancer removed from face, bowel surgery x 2 for obstruction(1st 40 yrs ago, 2010), rt knee replacement, Past Anesthesia/Blood Transfusion Reactions: No Reported Reaction Past Psychological History: No Psychological Hx Reported Smoking Status: Former smoker Past Alcohol Use History: Occasional Past Drug Use History: None Reported - Past Family History Father Family Medical History: Coronary Artery Disease (CAD), Diabetes Mellitus Mother Family Medical History: Cancer Additional Family Medical History / Comment(s): breast Sister(s) Family Medical History: Cancer Additional Family Medical History / Comment(s): Breast General Exam - General Exam Comments Initial Comments: GENERAL: Patient is well-developed and well-nourished. Patient is nontoxic and well- hydrated and is in mild distress. ENT: Neck is soft and supple. No significant lymphadenopathy is noted. Oropharynx is clear. Moist mucous membranes. Neck has full range of motion without eliciting any pain. EYES: The sclera were anicteric and conjunctiva were pink and moist. Extraocular movements were intact and pupils were equal round and reactive to light. Eyelids were unremarkable. PULMONARY: Unlabored respirations. Good breath sounds bilaterally. No audible rales rhonchi or wheezing was noted. CARDIOVASCULAR: There is a regular rate and rhythm without any murmurs gallops or rubs. ABDOMEN: Soft and nontender with normal bowel sounds. No palpable organomegaly was noted. There is no palpable pulsatile mass. SKIN: Skin is clear with no lesions or rashes and otherwise unremarkable. NEUROLOGIC: Patient is alert and oriented x3. Cranial nerves II through XII are grossly intact. Motor and sensory are also intact. Normal speech, volume and content. Symmetrical smile. MUSCULOSKELETAL: Normal extremities with adequate strength and full range of motion. No lower extremity swelling or edema. No calf tenderness. LYMPHATICS: No significant lymphadenopathy is noted PSYCHIATRIC: Normal psychiatric evaluation. Limitations: no limitations Course Vital Signs 06/11/19 06/11/19 11:12 12:41 Temperature 98 F Pulse Rate 86 62 Respiratory 18 18 Rate Blood Pressure 115/68 114/52 O2 Sat by Pulse 96 100 Oximetry Medical Decision Making - Medical Decision Making EKG shows normal sinus rhythm at 80 bpm DE interval 238 QRS is 88 QT interval 418 QTC is 482. Patient's EKG shows some inverted T waves in leads V2 V3 and V4. Chest x-ray shows a possible infiltrate in the lateral view. Patient also has a white count. I blood cultures and a lactic acidosis point I started the patient Rocephin and Zithromax. Because the patient's chest pain which continues currently I'm going to admit the patient will patient out. I will continue antibiotics as well as Nitropaste and aspirin on the floor. I spoke with Dr. Boss he agreed to admit the patient admitted the patient wrote admitting orders. - Lab Data Result diagrams: 06/11/19 11:24 06/11/19 11:24 Lab Results 06/11/19 06/11/19 06/11/19 Range/Units 11:24 11:24 11:24 WBC 14.2 H (3.8-10.6) k/uL RBC 4.50 (3.80-5.40) m/uL Hgb 14.2 (11.4-16.0) gm/dL Hct 41.6 (34.0-46.0) % MCV 92.6 (80.0-100.0) fL MCH 31.6 (25.0-35.0) pg MCHC 34.1 (31.0-37.0) g/dL RDW 14.6 (11.5-15.5) % Plt Count 353 (150-450) k/uL Neutrophils % 61 % Lymphocytes % 26 % Monocytes % 7 % Eosinophils % 2 % Basophils % 2 % Neutrophils # 8.7 H (1.3-7.7) k/uL Lymphocytes # 3.7 (1.0-4.8) k/uL Monocytes # 1.0 (0-1.0) k/uL Eosinophils # 0.3 (0-0.7) k/uL Basophils # 0.3 H (0-0.2) k/uL Hyperchromasia Slight Poikilocytosis Slight PT 9.6 (9.0-12.0) sec INR 0.9 (<1.2) APTT 23.0 (22.0-30.0) sec D-Dimer 0.79 H (<0.60) mg/L FEU Sodium 140 (137-145) mmol/L Potassium 2.8 L (3.5-5.1) mmol/L Chloride 100 (98-107) mmol/L Carbon Dioxide 27 (22-30) mmol/L Anion Gap 13 mmol/L BUN 16 (7-17) mg/dL Creatinine 0.78 (0.52-1.04) mg/dL Est GFR (CKD-EPI)AfAm 89 (>60 ml/min/1.73 sqM) Est GFR (CKD-EPI)NonAf 78 (>60 ml/min/1.73 sqM) Glucose 105 H (74-99) mg/dL Calcium 9.7 (8.4-10.2) mg/dL Magnesium 1.1 L (1.6-2.3) mg/dL Total Bilirubin 0.6 (0.2-1.3) mg/dL AST 39 H (14-36) U/L ALT 38 (9-52) U/L Alkaline Phosphatase 106 (38-126) U/L Troponin I (0.000-0.034) ng/mL Total Protein 7.0 (6.3-8.2) g/dL Albumin 4.1 (3.5-5.0) g/dL 06/11/19 Range/Units 11:24 WBC (3.8-10.6) k/uL RBC (3.80-5.40) m/uL Hgb (11.4-16.0) gm/dL Hct (34.0-46.0) % MCV (80.0-100.0) fL MCH (25.0-35.0) pg MCHC (31.0-37.0) g/dL RDW (11.5-15.5) % Plt Count (150-450) k/uL Neutrophils % % Lymphocytes % % Monocytes % % Eosinophils % % Basophils % % Neutrophils # (1.3-7.7) k/uL Lymphocytes # (1.0-4.8) k/uL Monocytes # (0-1.0) k/uL Eosinophils # (0-0.7) k/uL Basophils # (0-0.2) k/uL Hyperchromasia Poikilocytosis PT (9.0-12.0) sec INR (<1.2) APTT (22.0-30.0) sec D-Dimer (<0.60) mg/L FEU Sodium (137-145) mmol/L Potassium (3.5-5.1) mmol/L Chloride (98-107) mmol/L Carbon Dioxide (22-30) mmol/L Anion Gap mmol/L BUN (7-17) mg/dL Creatinine (0.52-1.04) mg/dL Est GFR (CKD-EPI)AfAm (>60 ml/min/1.73 sqM) Est GFR (CKD-EPI)NonAf (>60 ml/min/1.73 sqM) Glucose (74-99) mg/dL Calcium (8.4-10.2) mg/dL Magnesium (1.6-2.3) mg/dL Total Bilirubin (0.2-1.3) mg/dL AST (14-36) U/L ALT (9-52) U/L Alkaline Phosphatase (38-126) U/L Troponin I <0.012 (0.000-0.034) ng/mL Total Protein (6.3-8.2) g/dL Albumin (3.5-5.0) g/dL Disposition Clinical Impression: Chest pain, Pneumonia Disposition: ADMITTED IP TO THIS HOSP Referrals: Breezy Cronin MD [Primary Care Provider] - 1-2 days Time of Disposition: 14:33
[2019-06-11 12:22] LABS: Basophils # (A) 0.3 k/uL (0-0.2); Basophils % (A) 2 %; Eosinophils # (A) 0.3 k/uL (0-0.7); Eosinophils % (A) 2 %; HCT 41.6 % (34.0-46.0); HGB 14.2 gm/dL (11.4-16.0); Hyperchromasia Slight; Lymphocytes # (A) 3.7 k/uL (1.0-4.8); Lymphocytes % (A) 26 %; MCH 31.6 pg (25.0-35.0); MCHC 34.1 g/dL (31.0-37.0); MCV 92.6 fL (80.0-100.0); Mean Platelet Volume 6.7; Monocytes % (A) 7 %; Neutrophils # (A) 8.7 k/uL (1.3-7.7); Neutrophils % (A) 61 %; Platelet Count 353 k/uL (150-450); Poikilocytosis Slight; RDW 14.6 % (11.5-15.5); WBC 14.2 k/uL (3.8-10.6)
[2019-06-11 12:30] LABS: Albumin 4.1 g/dL (3.5-5.0); Calcium 9.7 mg/dL (8.4-10.2); Magnesium 1.1 mg/dL (1.6-2.3); Potassium 2.8 mmol/L (3.5-5.1); Total Bilirubin 0.6 mg/dL (0.2-1.3)
--- NOTE | 2019-06-11 12:33 | XR ---
EXAMINATION TYPE: XR chest 2V DATE OF EXAM: 06/11/2019 COMPARISON: 10/24/2014 HISTORY: 69-year-old female with chest pain and shortness of breath TECHNIQUE: PA and lateral views FINDINGS: Low lung volumes. Heart upper limits of normal in size. Mild elongation thoracic aorta. Diffuse inter stitial prominence. Some mild periportal cuffing. Strandy atelectasis in the lower lungs. IMPRESSION: Some patchy bibasilar opacities. Given low lung volumes, likely atelectasis rather than developing in filtrates. Clinically correlate. No peribronchial cuffing could represent bronchitis or asthma.
[2019-06-11 12:46] LABS: INR 0.9 (<1.2); Prothrombin Time 9.6 sec (9.0-12.0)
[2019-06-11 12:51] LABS: D-Dimer 0.79 mg/L FEU (<0.60)
--- NOTE | 2019-06-11 13:50 | CT ---
EXAMINATION TYPE: CT chest angio for PE DATE OF EXAM: 06/11/2019 COMPARISON: Chest x-ray of the same date HISTORY: elevated d-dimer and chest pain CT DLP: 249.4 mGycm. Automated Exposure Control for Dose Reduction was Utilized. CONTRAST: CTA scan of the thorax is performed with IV Contrast, patient injected with 200 mL of Isovue 370, pul monary embolism protocol. MIP Images are created on CT scanner and reviewed. FINDINGS: LUNGS: Lower lobe airspace disease is seen and appears geographic and demonstrated as groundglass opa cities. There is mild diffuse peribronchial cuffing. There is no pleural effusion or pneumothorax see n. The tracheobronchial tree is patent. MEDIASTINUM: Incidentally noted direct origin of the left vertebral artery from the aortic arch. Ther e is satisfactory enhancement of the pulmonary artery and its branches, there is no CT evidence for p ulmonary embolism. There are no greater than 1 cm hilar or mediastinal lymph nodes. No significant c oronary calcifications on CT. No cardiomegaly or pericardial effusion is seen. OTHER: 1.5 cm left thyroid nodule is seen as well as is noted nodule measuring 1.0 cm. Mild multilev el degenerative changes of the spine. IMPRESSION: 1. No evidence of pulmonary embolus. 2. Bibasilar airspace disease. This appears as groundglass opacities and most commonly represents ate lectasis. Early developing pneumonia is a possibility and the appropriate clinical setting. 3. Mild diffuse peribronchial cuffing. This may be reactive or infectious.
[2019-06-11] MEDS ORDERED: cefTRIAXone IN SWFI 1,000 MG/10 ML SYRINGE IVP STA (14:32)
[2019-06-11] MEDS ORDERED: NITROGLYCERIN SL TABS 0.4 MG TAB SUBLINGUAL PRN (15:38)
[2019-06-11] MEDS ORDERED: AZITHROMYCIN 500 MG in SODIUM CHLORIDE 0.9% 250 ML IVPB STA (15:40)
[2019-06-11] MEDS ORDERED: SODIUM CHLORIDE 0.9% 1,000 ML IV ONE (16:23)
[2019-06-11] MEDS ORDERED: Potassium Replacement Protocol 1 EACH MISC MISCELLANE PRN (18:41)
[2019-06-11] MEDS: NITROGLYCERIN OINT 1 INCH/GM PACKET TOPICAL SCH ×2 (18:51→22:58)
[2019-06-11] MEDS: guaiFENesin-Coden 100-10MG/5ML 10 ML CUP PO PRN (19:05)
[2019-06-11] MEDS: POTASSIUM CHLORIDE ER 20 MEQ TAB.ER PO SCH ×3 (19:05→21:04)
[2019-06-11] MEDS ORDERED: SODIUM CHLORIDE 0.9% 500 ML 500 ML IV ONE (20:10)
[2019-06-11] MEDS: SODIUM CHLORIDE 0.9% 1,000 ML IV SCH (21:05)
[2019-06-11] MEDS ORDERED: ONDANSETRON 4 MG/2 ML VIAL IVP PRN (21:13)
[2019-06-11] MEDS: MORPHINE SULFATE 2 MG/ML SYRINGE IVP PRN (21:34)
[2019-06-12 00:47] LABS: Potassium 2.7 mmol/L (3.5-5.1)
[2019-06-12] MEDS ORDERED: Potassium Replacement Protocol 1 EACH MISC MISCELLANE PRN (00:48)
[2019-06-12] MEDS: MORPHINE SULFATE 2 MG/ML SYRINGE IVP PRN ×3 (02:03→14:41)
[2019-06-12] MEDS: POTASSIUM CHLORIDE 20 MEQ in WATER FOR INJECTION 1 100ML.BAG IVPB SCH ×2 (02:04→04:23)
[2019-06-12] MEDS: NITROGLYCERIN OINT 1 INCH/GM PACKET TOPICAL SCH ×4 (05:25→23:13)
[2019-06-12] MEDS: POTASSIUM CHLORIDE ER 20 MEQ TAB.ER PO SCH ×4 (05:26→14:42)
[2019-06-12] MEDS: SODIUM CHLORIDE 0.9% 1,000 ML IV SCH ×2 (05:51→19:45)
[2019-06-12 06:03] LABS: Magnesium 1.2 mg/dL (1.6-2.3)
--- NOTE | 2019-06-12 08:05 | P.CRDCN ---
History of Present Illness Consult date: 06/12/19 Requesting physician: Chau Brennan Jr Consult reason: chest pain Chief complaint: Chest pain History of present illness: This is a 69-year-old female with history of hyperlipidemia, family history of premature coronary artery disease, no history of hypertension, she is a nondiabetic, quit smoking 20 years ago, occasionally drinks alcohol. She does have a history of 2 prior bowel surgeries and is known to run low potassium and low magnesium secondary to absorption. Patient's last stress test was in 2014, she also underwent a tilt table test at that time which was normal. She p resents to the hospital on this occasion with symptoms of chest pain which she describes as sharp stabbing chest pains, constant since the onset yesterday. She states at times that the pain takes her breath away. Chest x-ray on presentation here shows some patchy bibasilar opaque cities. Given low lung volumes, likely atelectasis rather than developing infiltrates. CTA of the chest does not reveal evidence of pulmonary embolism. Bibasilar air space disease, appears as a groundglass opaque severe, possible atelectasis or early developing pneumonia. Mild diffuse peribronchial cuffing. Her EKG on presentation here showed a normal sinus rhythm with nonspecific ST-T wave changes. At the time of my examination this morning, patient continues to have pain, especially with deep breathing. Laboratory data was reviewed, white blood cell count 14.2, hemoglobin 14.2, platelet 353, d-dimer 0.7, on admission sodium was 140 with a potassium of 2.8, BUN 16 and creatinine 0.7. Lactic acid 2.7, 3.5, 1.7. Magnesium 1.1, 1.2. AST 39, ALT 38. Cholesterol 142, triglycerides 123, LDL 62, HDL 55. 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, mult skin cancer on face Last Myocardial Infarction Date:: 1994 History of Any Multi-Drug Resistant Organisms: MRSA Date of last positivie culture/infection: 2010- MDRO Source:: abdomen from 2nd bowel surg Past Surgical History: Bowel Resection, Cholecystectomy, Heart Catheterization, Hysterectomy, Joint Replacement, Tonsillectomy Additional Past Surgical History / Comment(s): Ovarian cysts removed, skin cancer removed from face, bowel surgery x 2 for obstruction(1st 40 yrs ago, 2nd 2010), rt knee replacement, Past Anesthesia/Blood Transfusion Reactions: No Reported Reaction Past Psychological History: No Psychological Hx Reported Smoking Status: Former smoker Past Alcohol Use History: Occasional Additional Past Alcohol Use History / Comment(s): started smoking 1966 and quit 2000 smoked 1 ppd. Past Drug Use History: None Reported - Past Family History Father Family Medical History: Coronary Artery Disease (CAD), Diabetes Mellitus Mother Family Medical History: Cancer Additional Family Medical History / Comment(s): breast Sister(s) Family Medical History: Cancer Additional Family Medical History / Comment(s): Breast Medications and Allergies Home Medications Medication Instructions Recorded Confirmed Type Magnesium Oxide [Magox 400] 1,200 mg PO DAILY 07/16/16 06/11/19 History Sodium Bicarbonate Tab 650 mg PO BID 02/20/18 06/11/19 History Ergocalciferol (Vitamin D2) 50,000 unit PO Q7D 06/11/19 06/11/19 History [Drisdol] Potassium Chloride ER [K-Dur 10] 40 meq PO DAILY 06/11/19 06/11/19 History Spironolactone 25 mg PO DAILY 06/11/19 06/11/19 History Allergies Allergy/AdvReac Type Severity Reaction Status Date / Time No Known Allergies Allergy Verified 06/11/19 15:29 Physical Exam Vitals: Vital Signs Temp Pulse Pulse Resp BP BP Pulse Ox 06/12/19 03:59 88 18 06/12/19 03:58 18 95 06/12/19 03:56 97.7 F 88 18 118/95 89 L 06/11/19 23:42 71 18 06/11/19 23:37 97.4 F L 71 18 111/51 93 L 06/11/19 20:00 98.6 F 71 18 118/55 96 06/11/19 16:51 66 18 126/59 96 06/11/19 16:12 65 16 120/56 97 06/11/19 16:04 97.6 F 62 18 120/55 98 06/11/19 15:16 72 16 109/60 100 06/11/19 12:41 62 18 114/52 100 06/11/19 11:12 98 F 86 18 115/68 96 Intake and Output 06/11/19 06/12/19 06/12/19 22:59 06:59 14:59 Other: Voiding Method Toilet Toilet # Voids 2 1 Weight 58.9 kg PHYSICAL EXAMINATION: GENERAL: 69-year-old female in no acute distress at the time of my examination HEENT: Head is atraumatic, normocephalic. Pupils equal, round. Sclera anicteric. Conjunctiva are clear. Mucous membranes of the mouth are moist. Neck is supple. There is no elevated jugular venous pressure. No carotid bruit is heard. HEART EXAMINATION: Heart S1, S2 normal. No murmur or gallop heard. CHEST EXAMINATION: Lungs are clear to auscultation and precussion. Positive chest wall tenderness is noted on palpation and with deep breathing. ABDOMEN: Soft, nontender. Bowel sounds are heard. No organomegaly noted. EXTREMITIES: 2+ peripheral pulses with no evidence of peripheral edema and no calf tenderness noted. NEUROLOGIC patient is awake, alert and oriented 3 . . Results 06/11/19 11:24 06/12/19 00:04 Cardiac Enzymes 06/11/19 06/11/19 06/11/19 Range/Units 11:24 11:24 17:26 AST 39 H (14-36) U/L Troponin I <0.012 0.018 (0.000-0.034) ng/mL 06/12/19 Range/Units 00:04 AST (14-36) U/L Troponin I 0.020 (0.000-0.034) ng/mL Coagulation 06/11/19 Range/Units 11:24 PT 9.6 (9.0-12.0) sec APTT 23.0 (22.0-30.0) sec Lipids 06/12/19 Range/Units 05:30 Triglycerides 123 (<150) mg/dL Cholesterol 142 (<200) mg/dL HDL Cholesterol 55 (40-60) mg/dL CBC 06/11/19 Range/Units 11:24 WBC 14.2 H (3.8-10.6) k/uL RBC 4.50 (3.80-5.40) m/uL Hgb 14.2 (11.4-16.0) gm/dL Hct 41.6 (34.0-46.0) % Plt Count 353 (150-450) k/uL Comprehensive Metabolic Panel 06/11/19 06/12/19 Range/Units 11:24 00:04 Sodium 140 139 (137-145) mmol/L Potassium 2.8 L 2.7 L* (3.5-5.1) mmol/L Chloride 100 108 H (98-107) mmol/L Carbon Dioxide 27 25 (22-30) mmol/L BUN 16 16 (7-17) mg/dL Creatinine 0.78 0.84 (0.52-1.04) mg/dL Glucose 105 H 107 H (74-99) mg/dL Calcium 9.7 8.0 L (8.4-10.2) mg/dL AST 39 H (14-36) U/L ALT 38 (9-52) U/L Alkaline Phosphatase 106 (38-126) U/L Total Protein 7.0 (6.3-8.2) g/dL Albumin 4.1 (3.5-5.0) g/dL Current Medications Generic Name Dose Route Start Last Admin Trade Name Freq PRN Reason Stop Dose Admin Aspirin 325 mg 06/12/19 09:00 Aspirin PO DAILY [facility] Guaifenesin/Codeine Phosphate 10 ml 06/11/19 18:42 06/11/19 19:05 Robitussin Ac PO 10 ml Q6H PRN Administration Cough Ceftriaxone Sodium 1 gm/ 50 mls @ 100 mls/hr 06/12/19 09:00 Sodium Chloride IVPB Q24HR JEN Azithromycin 500 mg/ Sodium 250 mls @ 250 mls/hr 06/12/19 16:00 Chloride IVPB DAILY@1600 JEN Sodium Chloride 1,000 mls @ 100 mls/hr 06/11/19 20:15 06/12/19 05:51 Saline 0.9% IV 100 mls/hr .Q10H JEN Administration Magnesium Oxide 1,200 mg 06/12/19 09:00 Mag-Ox PO DAILY [facility] Miscellaneous Information 1 each 06/11/19 18:41 Potassium Per Protocol MISCELLANE DAILY PRN Per Protocol Protocol Miscellaneous Information 1 each 06/12/19 00:48 Potassium Per Protocol MISCELLANE DAILY PRN Per Protocol Protocol Morphine Sulfate 1 mg 06/11/19 21:12 06/12/19 05:27 Morphine Sulfate (Inj) IVP 1 mg Q4H PRN Administration Pain/Discomfort Nitroglycerin 0.4 mg 06/11/19 15:38 Nitrostat SUBLINGUAL Q5M PRN Chest Pain Nitroglycerin 1 inch 06/11/19 18:00 06/12/19 05:25 Nitro-Bid Oint TOPICAL 1 inch Q6HR JEN Administration Ondansetron HCl 4 mg 06/11/19 21:13 Zofran IVP Q6HR PRN Nausea And Vomiting Potassium Chloride 40 meq 06/12/19 09:00 K-Dur 20 PO DAILY JEN Potassium Chloride 20 meq 06/12/19 06:00 06/12/19 05:26 K-Dur 20 PO 06/12/19 10:01 20 meq Q2HR JEN Administration Sodium Bicarbonate 650 mg 06/12/19 09:00 Sodium Bicarbonate Tab PO BID JEN Spironolactone 25 mg 06/12/19 09:00 Aldactone PO DAILY JEN Intake and Output 06/11/19 06/12/19 06/12/19 22:59 06:59 14:59 Other: Voiding Method Toilet Toilet # Voids 2 1 Weight 58.9 kg 06/11/19 11:24 06/12/19 00:04 EKG Interpretations (text) EKG shows normal sinus rhythm with nonspecific ST-T wave changes Assessment and Plan Plan: Assessment and plan #1 chest pain, atypical for acute coronary syndrome, pleuritic in nature. Troponins 0.012, 0.018, 0.020. EKG shows a normal sinus rhythm with nonspecific ST-T wave changes. CTA of the chest negative for pulmonary embolism #2 hyperlipidemia #3 history of smoking, quit smoking 20 years ago. #4 hypokalemia #5 hypomagnesemia #6 atelectasis on CAT scan versus possible early pneumonia, lactic acid up to 3.5 this admission, white blood cell count 14 #7 history of bowel surgery 2 Plan We will obtain an echocardiogram with Doppler study. Replace potassium and magnesium levels. Patient is also been advised to undergo stress testing today. Further recommendations will be based on these findings and patient's clinical course. DNP note has been reviewed, I agree with a documented findings and plan of care. Patient was seen and examined.
[2019-06-12] MEDS ORDERED: ASPIRIN 325 MG TAB PO SCH (09:00)
[2019-06-12] MEDS: MAGNESIUM SULFATE-D5W PMX 1 GM in DEXTROSE/WATER 1 100ML.BAG IVPB SCH ×2 (09:23→14:41)
[2019-06-12] MEDS: SODIUM BICARBONATE TAB 650 MG TAB PO SCH ×2 (09:24→19:58)
[2019-06-12] MEDS: ASPIRIN 81 MG PO SCH (09:25)
[2019-06-12] MEDS: SPIRONOLACTONE 25 MG TAB PO SCH (09:25)
[2019-06-12] MEDS: MAGNESIUM OXIDE 400 MG TAB PO SCH (09:25)
[2019-06-12] MEDS ORDERED: REGADENOSON 0.4 MG/5 ML SYRINGE IV ONE (10:02)
[2019-06-12] MEDS ORDERED: CAFFEINE CITRATE 60 MG/3 ML VIAL IV PRN (10:02)
[2019-06-12] MEDS ORDERED: AMINOPHYLLINE 500 MG/20 ML VIAL IV PRN (10:02)
--- NOTE | 2019-06-12 12:39 | ECHOF ---
Referral Reason:chest pain MEASUREMENTS -------- HEIGHT: 157.5 cm WEIGHT: 58.5 kg BP: RVIDd: 2.3 cm (< 3.3) IVSd: 1.5 cm (0.6 - 1.1) LVIDd: 2.2 cm (3.9 - 5.3) LVPWd: 1.6 cm (0.6 - 1.1) IVSs: 1.4 cm LVIDs: 1.1 cm LVPWs: 1.4 cm LAESV Index (A-L): 19.95 ml/m Ao Diam: 3.1 cm (2.0 - 3.7) AV Cusp: 1.7 cm (1.5 - 2.6) LA Diam: 3.4 cm (2.7 - 3.8) MV EF SLOPE: 159 mm/s (70 - 150) EPSS: 1.2 cm MV E Edgardo: 0.91 m/s MV DecT: 217 ms MV A Edgardo: 0.80 m/s MV E/A Ratio: 1.15 RAP: 5.00 mmHg RVSP: 10.65 mmHg TAPSE: 28.11 mm FINDINGS -------- Sinus rhythm. This was a technically good study. The left ventricular size is normal. There is moderate concentric left ventricular hypertrophy. O verall left ventricular systolic function is normal with, an EF between 55 - 60 %. Normal LAP Grade 1 Diastolic Dysfunction. The right ventricle is normal in size. The left atrial size is normal. Normal LA size by volume 22+/-6 ml/m2. The right atrial size is normal. Interatrial and interventricular septum intact. The aortic valve is trileaflet and appears structurally normal. The mitral valve is normal. Mild mitral regurgitation is present. The tricuspid valve appears structurally normal. Mild tricuspid regurgitation present. Right vent ricular systolic pressure is normal at < 35 mmHg. There is no pulmonic regurgitation present. The aortic root size is normal. Normal inferior vena cava with normal inspiratory collapse consistent with estimated right atrial pre ssure of 5 mmHg. There is a small, generalized pericardial effusion present. CONCLUSIONS -------- 1. Sinus rhythm. 2. This was a technically good study. 3. The left ventricular size is normal. 4. There is moderate concentric left ventricular hypertrophy. 5. Overall left ventricular systolic function is normal with, an EF between 55 - 60 %. 6. Normal LAP Grade 1 Diastolic Dysfunction. 7. The right ventricle is normal in size. 8. The left atrial size is normal. 9. Normal LA size by volume 22+/-6 ml/m2. 10. The right atrial size is normal. 11. Interatrial and interventricular septum intact. 12. The aortic valve is trileaflet and appears structurally normal. 13. The mitral valve is normal. 14. Mild mitral regurgitation is present. 15. The tricuspid valve appears structurally normal. 16. Mild tricuspid regurgitation present. 17. Right ventricular systolic pressure is normal at < 35 mmHg. 18. There is no pulmonic regurgitation present. 19. The aortic root size is normal. 20. Normal inferior vena cava with normal inspiratory collapse consistent with estimated right atrial pressure of 5 mmHg. 21. There is a small, generalized pericardial effusion present. ASSAYER: Gisselle Navas RDCS
--- NOTE | 2019-06-12 13:11 | NM ---
EXAMINATION TYPE: NM stress lexiscan cardiolite DATE OF EXAM: 06/12/2019 COMPARISON: NONE HISTORY: Chest pain. History of heart catheterization and COPD as well as prior tobacco use and perso nal history of hypercholesterolemia. TECHNIQUE: After the intravenous administration of 10.2 mCi Tc 99m Sestamibi - Cardiolite resting SP ECT images acquired 45 minutes post injection. The patient received 0.4mg Lexiscan, 25.8 mCi Tc 99m Sestamibi - Stress images obtained [address] injection FINDINGS: Review of stress and rest SPECT images demonstrates no distinct perfusion abnormality. Gated analysi s shows normal wall motion with an estimated left ventricular ejection fraction of 71 %. IMPRESSION: No scintigraphic evidence for reversible ischemia.
--- NOTE | 2019-06-12 14:02 | EST ---
EXERCISE STRESS AGE: 69 SEX: F HT: 5'2" WT: 125 PROTOCOL: Lexiscan Cardiolite STAGE: DURATION OF EXERCISE: HEART RATE REST: 70 BLOOD PRESSURE REST: 122/60 MAXIMUM HEART RATE ACHIEVED: 95 MAXIMUM BLOOD PRESSURE: 142/66 85% MPHR: 100% MPHR: METS: INDICATIONS: CLINICAL INFORMATION: Baseline EKG revealed a sinus mechanism with some baseline artifact. Nonspecific ST abnormality. With Lexiscan administration, heart rate changed from 70 to 95 beats per minute. Blood pressure changed from 122/60 to 142/66, and came back to baseline. No significant new changes were noted. There were rare PVCs noted. There was lots of baseline artifact. However, because of minor resting EKG changes. This is considered an inconclusive stress test by EKG criteria. The nuclear scan results which are more pertinent will be reported by the radiologist. The patient developed some nausea and shortness of breath requiring aminophylline and Zofran. MMODL / AMYN: [id number] /
[2019-06-12] MEDS ORDERED: AZITHROMYCIN 500 MG in SODIUM CHLORIDE 0.9% 250 ML IVPB SCH (16:00)
[2019-06-12] MEDS ORDERED: Magnesium Replacement Protocol 1 EACH MISC MISCELLANE PRN (16:19)
--- NOTE | 2019-06-12 16:19 | P.HPIM ---
History of Present Illness H&P Date: 06/12/19 Chief Complaint: Chest pain This is a 69-year-old female with history of hyper cholesterol, hypertension , recent pneumonia 2 months ago, former nicotine dependence and multiple other medical issues presented to the ER with left sided chest pain located beneath the left breast. Chest pain started as she was beginning to prepare lunch, and has been present ever since. Reports chest pain to be stabbing, continuous, no radiation, worsened with deep inspiration accompanied by shortness of breath, no nausea or vomiting, no productive cough. 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 CTA negative for PE, suggestive of atelectasis versus early pneumonia.No peribronchial cuffing, possible bronchitis or asthma. Chest x-ray reported some patchy bibasilar opacity's, low lung volumes, likely atelectasis versus infiltrates Reports both she and her have been sick 1 week with upper respiratory infection, denies fevers or chills. Reports generalized weakness, new onset 1 week denies trauma, no falls. Reports she has had her influenza and pneumonia vaccine. Troponin 0.012, 0.018, 0.021. EKG reporting sinus rhythm, nonspecific ST-T wave changes. Afebrile, WBC up to 14.2. Lactic acid on admission 2.7, further increased to 3.5 now currently at 1.7 with IV fluid hydration. Rocephin, Zithromax initiated. Potassium 2.7, magnesium 1.2, receiving supplements. Evaluated by cardiology, recommendations noted and appreciated. Scheduled for stress/echo. Review of Systems ROS Statement: Those systems with pertinent positive or pertinent negative responses have been documented in the HPI. ROS Other: All systems not noted in ROS Statement are negative. 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, mult skin cancer on face Last Myocardial Infarction Date:: 1994 History of Any Multi-Drug Resistant Organisms: MRSA Date of last positivie culture/infection: 2010- MDRO Source:: abdomen from 2nd bowel surg Past Surgical History: Bowel Resection, Cholecystectomy, Heart Catheterization, Hysterectomy, Joint Replacement, Tonsillectomy Additional Past Surgical History / Comment(s): Ovarian cysts removed, skin cancer removed from face, bowel surgery x 2 for obstruction(1st 40 yrs ago, 2nd 2010), rt knee replacement, Past Anesthesia/Blood Transfusion Reactions: No Reported Reaction Past Psychological History: No Psychological Hx Reported Smoking Status: Former smoker Past Alcohol Use History: Occasional Additional Past Alcohol Use History / Comment(s): started smoking 1966 and quit 2000 smoked 1 ppd. Past Drug Use History: None Reported - Past Family History Father Family Medical History: Coronary Artery Disease (CAD), Diabetes Mellitus Mother Family Medical History: Cancer Additional Family Medical History / Comment(s): breast Sister(s) Family Medical History: Cancer Additional Family Medical History / Comment(s): Breast Medications and Allergies Home Medications Medication Instructions Recorded Confirmed Type Magnesium Oxide [Magox 400] 1,200 mg PO DAILY 07/16/16 06/11/19 History Sodium Bicarbonate Tab 650 mg PO BID 02/20/18 06/11/19 History Ergocalciferol (Vitamin D2) 50,000 unit PO Q7D 06/11/19 06/11/19 History [Drisdol] Potassium Chloride ER [K-Dur 10] 40 meq PO DAILY 06/11/19 06/11/19 History Spironolactone 25 mg PO DAILY 06/11/19 06/11/19 History Allergies Allergy/AdvReac Type Severity Reaction Status Date / Time No Known Allergies Allergy Verified 06/11/19 15:29 Physical Exam Vitals: Vital Signs Temp Pulse Pulse Resp BP BP Pulse Ox 06/12/19 03:59 88 18 06/12/19 03:58 18 95 06/12/19 03:56 97.7 F 88 18 118/95 89 L 06/11/19 23:42 71 18 06/11/19 23:37 97.4 F L 71 18 111/51 93 L 06/11/19 20:00 98.6 F 71 18 118/55 96 06/11/19 16:51 66 18 126/59 96 06/11/19 16:12 65 16 120/56 97 06/11/19 16:04 97.6 F 62 18 120/55 98 06/11/19 15:16 72 16 109/60 100 06/11/19 12:41 62 18 114/52 100 06/11/19 11:12 98 F 86 18 115/68 96 Intake and Output 06/11/19 06/12/19 06/12/19 22:59 06:59 14:59 Other: Voiding Method Toilet Toilet # Voids 2 1 Weight 58.9 kg PHYSICAL EXAM: VITAL SIGNS: As above GENERAL: Sitting up in bed, tired appearing, teary-eyed, no acute distress HEENT: Conjunctivae normal. eyes normal. NECK: No JVD. No thyroid enlargement. No LNs CARDIOVASCULAR: S1, S2 regular.. No murmur RESPIRATION: Breath sounds diminished in the bases. No rhonchi or crackles. No bronchial breathing. Positive left chest wall tenderness on palpitation. ABDOMEN: Soft, nontender . No guarding. no masses palpable. No ascites, No hepatosplenomegaly.Bowel sounds heard. LEGS: No edema. no swelling PSYCHIATRY: Alert and oriented X3, mood and affect normal. NERVOUS SYSTEM: Cranial N 2-12 grossly normal. Moves all 4 limbs. Diffuse weakness No focal deficits. Strength and sensation grossly intact.. Skin: no rash Lymphatic system. No LN neck axilla or groin. Results CBC & Chem 7: 06/11/19 11:24 06/12/19 00:04 Labs: Abnormal Lab Results - Last 24 Hours (Table) 06/11/19 06/11/19 06/11/19 Range/Units 11:24 11:24 11:24 WBC 14.2 H (3.8-10.6) k/uL Neutrophils # 8.7 H (1.3-7.7) k/uL Basophils # 0.3 H (0-0.2) k/uL D-Dimer 0.79 H (<0.60) mg/L FEU Potassium 2.8 L (3.5-5.1) mmol/L Chloride (98-107) mmol/L Glucose 105 H (74-99) mg/dL Plasma Lactic Acid Franck (0.7-2.0) mmol/L Calcium (8.4-10.2) mg/dL Magnesium 1.1 L (1.6-2.3) mg/dL AST 39 H (14-36) U/L 06/11/19 06/11/19 06/12/19 Range/Units 11:24 19:02 00:04 WBC (3.8-10.6) k/uL Neutrophils # (1.3-7.7) k/uL Basophils # (0-0.2) k/uL D-Dimer (<0.60) mg/L FEU Potassium 2.7 L* (3.5-5.1) mmol/L Chloride 108 H (98-107) mmol/L Glucose 107 H (74-99) mg/dL Plasma Lactic Acid Franck 2.7 H* 3.5 H* (0.7-2.0) mmol/L Calcium 8.0 L (8.4-10.2) mg/dL Magnesium (1.6-2.3) mg/dL AST (14-36) U/L 06/12/19 Range/Units 05:30 WBC (3.8-10.6) k/uL Neutrophils # (1.3-7.7) k/uL Basophils # (0-0.2) k/uL D-Dimer (<0.60) mg/L FEU Potassium (3.5-5.1) mmol/L Chloride (98-107) mmol/L Glucose (74-99) mg/dL Plasma Lactic Acid Franck (0.7-2.0) mmol/L Calcium (8.4-10.2) mg/dL Magnesium 1.2 L (1.6-2.3) mg/dL AST (14-36) U/L Thrombosis Risk Factor Assmnt - Choose All That Apply Any of the Below Risk Factors Present?: No Other Risk Factors: No Other congenital or acquired thrombophilia - If yes, enter type in comment: No Thrombosis Risk Factor Assessment Level: Very Low Risk Assessment and Plan Assessment: Chest pain, rule out acute coronary syndrome pathway, possible pleurisy, possible pneumonia in a patient with recent pneumonia 2 months ago. Leukocytosis Lactic acidosis, resolved with IV fluid hydration Atelectasis Pulmonary embolism ruled out Hypokalemia Hypomagnesemia Hypertension Hyperlipidemia History of nicotine dependence Plan: Continue on current medication regime ,monitoring and symptomatic treatment. As mentioned above cardiology recommended stress echo with Doppler study today. Electrolyte replacement in progress. Close monitoring of electrolyte with repeat labs ordered for a.m. maintain antibiotics of Rocephin and Zithromax. GI and DVT prophylaxis in place. Home meds have been reviewed and resumed accordingly. Plan of care discussed with patient at bedside who v erbalizes understanding of, agreement with. Questions and concerns addressed. Support given. The impression and plan of care has been dictated as directed. : I performed a history and examination of this patient, discussed the same with the dictator. I agree with the dictator's note ,documented as a scribe. Any additional findings or plans will be noted.
[2019-06-12] MEDS: PANTOPRAZOLE 40 MG/10 ML VIAL IVP SCH (19:58)
[2019-06-13] MEDS: SODIUM CHLORIDE 0.9% 1,000 ML IV SCH (05:53)
[2019-06-13] MEDS: NITROGLYCERIN OINT 1 INCH/GM PACKET TOPICAL SCH ×4 (05:54→17:04)
[2019-06-13 06:24] LABS: Basophils # (A) 0.1 k/uL (0-0.2); Basophils % (A) 2 %; Eosinophils # (A) 0.2 k/uL (0-0.7); Eosinophils % (A) 2 %; Lymphocytes # (A) 1.4 k/uL (1.0-4.8); Lymphocytes % (A) 24 %; MCH 31.6 pg (25.0-35.0); MCHC 33.1 g/dL (31.0-37.0); MCV 95.4 fL (80.0-100.0); Mean Platelet Volume 6.4; Monocytes # (A) 0.4 k/uL (0-1.0); Monocytes % (A) 7 %; Neutrophils # (A) 3.8 k/uL (1.3-7.7); Neutrophils % (A) 63 %; Platelet Count 265 k/uL (150-450); Poikilocytosis Slight; RBC 3.56 m/uL (3.80-5.40); RDW 14.7 % (11.5-15.5)
[2019-06-13 06:27] LABS: HGB 11.2 gm/dL (11.4-16.0)
[2019-06-13 06:34] LABS: African American GFR (CKD) >90 (>60 ml/min/1.73 sqM); Anion Gap 4 mmol/L; Blood Urea Nitrogen 8 mg/dL (7-17); Calcium 7.2 mg/dL (8.4-10.2); Carbon Dioxide 23 mmol/L (22-30); Chloride 114 mmol/L (98-107); Glucose 78 mg/dL (74-99); Magnesium 1.9 mg/dL (1.6-2.3); Non-African American GFR(CKD) >90 (>60 ml/min/1.73 sqM); Potassium 2.8 mmol/L (3.5-5.1); Sodium 141 mmol/L (137-145)
[2019-06-13] MEDS: MAGNESIUM OXIDE 400 MG TAB PO SCH (09:56)
[2019-06-13] MEDS: PANTOPRAZOLE 40 MG/10 ML VIAL IVP SCH (09:56)
[2019-06-13] MEDS: ASPIRIN 81 MG PO SCH (09:56)
[2019-06-13] MEDS: POTASSIUM CHLORIDE ER 20 MEQ TAB.ER PO SCH ×4 (09:56→13:03)
[2019-06-13] MEDS: SPIRONOLACTONE 25 MG TAB PO SCH (09:56)
[2019-06-13] MEDS: SODIUM BICARBONATE TAB 650 MG TAB PO SCH (09:56)
[2019-06-13 10:03] VITALS: RESP 16; TEMP 97.7
[2019-06-13] MEDS: guaiFENesin-Coden 100-10MG/5ML 10 ML CUP PO PRN (12:13)
[2019-06-13 12:31] VITALS: BP 125/56; PULSE 69
--- NOTE | 2019-06-13 13:29 | P.DS ---
Providers Date of admission: 06/11/19 15:38 Expected date of discharge: 06/13/19 Attending physician: Chau Brennan Consults: 06/11/19 15:38 Consult Physician Urgent Consulting Provider: [facility] Consult Reason/Comments: Chest pain Do you want consulting provider notified?: Yes Primary care physician: Breezy Cronin [facility] Course: Final Diagnoses: Chest pain, racute coronary syndrome ruled out, possible community-acquired pneumonia in a patient with recent pneumonia 2 months ago. Leukocytosis Lactic acidosis, resolved with IV fluid hydration Atelectasis Pulmonary embolism ruled out Hypokalemia Hypomagnesemia Hypertension Hyperlipidemia History of nicotine dependence Hospital course:This is a 69-year-old female with history of hyper cholesterol, hypertension , recent pneumonia 2 months ago, former nicotine dependence and multiple other medical issues presented to the ER with left sided chest pain located beneath the left breast. Chest pain started as she was beginning to prepare lunch, and has been present ever since. Reports chest pain to be stabbing, continuous, no radiation, worsened with deep inspiration accompanied by shortness of breath, no nausea or vomiting, no productive cough. 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 CTA negative for PE, suggestive of atelectasis versus early pneumonia.No peribronchial cuffing, possible bronchitis or asthma. Chest x-ray reported some patchy bibasilar opacity's, low lung volumes, likely atelectasis versus infiltrates Reports both she and her have been sick 1 week with upper respiratory infection, denies fevers or chills. Reports generalized weakness, new onset 1 week denies trauma, no falls. Reports she has had her influenza and pneumonia vaccine. Troponin 0.012, 0.018, 0.021. EKG reporting sinus rhythm, nonspecific ST-T wave changes. Afebrile, WBC up to 14.2. Lactic acid on admission 2.7, further increased to 3.5 now currently at 1.7 with IV fluid hydration. Rocephin, Zithromax initiated. Potassium 2.7, magnesium 1.2, receiving supplements. Evaluated by cardiology, recommendations noted and appreciated. Scheduled for stress/echo. Underwent stress test, tolerated procedure well. Inconclusive stress test by EKG criteria, Lexiscan reported no evidence of reversible ischemia. Echo reporting preserved LV function, EF 55-60%. Afebrile, normal WBC. Telemetry sinus rhythm. Significant clinical improvement. Cleared by cardiology for discharge. Patient is being discharged home in a stable condition with guarded prognosis, pending follow-up potassium levels within normal limits. EXAM: GENERAL: Alert and oriented 3, no acute distress CARDIOVASCULAR: S1, S2 regular.. No murmur RESPIRATION: Breath sounds diminished in the bases. ABDOMEN: Soft, nontender . No guarding. no masses palpable. Bowel sounds heard. NERVOUS SYSTEM: No focal deficits. The impression and plan of care has been dictated as directed. : I performed a history and examination of this patient, discussed the same with the dictator. I agree with the dictator's note ,documented as a scribe. Any additional findings or plans will be noted. Patient Condition at Discharge: Stable Plan - Discharge Summary Discharge Rx Participant: No New Discharge Prescriptions: New guaiFENesin-Coden 100-10MG/5ML [Robitussin AC] 10 ml PO Q6H PRN ml PRN Reason: Cough Azithromycin [Zithromax] 500 mg PO DAILY #5 tab Continue Magnesium Oxide [Magox 400] 1,200 mg PO DAILY Sodium Bicarbonate Tab 650 mg PO BID Potassium Chloride ER [K-Dur 10] 40 meq PO DAILY Ergocalciferol (Vitamin D2) [Drisdol] 50,000 unit PO Q7D Spironolactone 25 mg PO DAILY Discharge Medication List Magnesium Oxide [Magox 400] 1,200 mg PO DAILY 07/16/16 [History] Sodium Bicarbonate Tab 650 mg PO BID 02/20/18 [History] Ergocalciferol (Vitamin D2) [Drisdol] 50,000 unit PO Q7D 06/11/19 [History] Potassium Chloride ER [K-Dur 10] 40 meq PO DAILY 06/11/19 [History] Spironolactone 25 mg PO DAILY 06/11/19 [History] Azithromycin [Zithromax] 500 mg PO DAILY #5 tab 06/13/19 [Rx] guaiFENesin-Coden 100-10MG/5ML [Robitussin AC] 10 ml PO Q6H PRN ml 06/13/19 [Rx] Follow up Appointment(s)/Referral(s): Breezy Cronin MD [Primary Care Provider] - 3 Days Ambulatory/Diagnostic Orders: Complete Blood Count w/diff [LAB.AMB] Time Frame: 3 Days, Location: None Selected Activity/Diet/Wound Care/Special Instructions: f/u K+ level pending:
[2019-06-13] MEDS ORDERED: AZITHROMYCIN 500 MG TAB PO SCH (21:00)
== END 2019-06-13 17:48 | disposition home or self-care (01) | DRG 194 ==
LOC: EC 11:02 → 3SCARD 15:38
PROVIDERS: ADMIT Family Medicine; ATTEND Family Medicine
DX: J18.9 Pneumonia, unspecified organism (principal); J98.11 Atelectasis; E87.2 Acidosis; K52.9 Noninfective gastroenteritis and colitis, unspecified; E78.00 Pure hypercholesterolemia, unspecified; E78.5 Hyperlipidemia, unspecified; E83.42 Hypomagnesemia; E87.6 Hypokalemia; I10 Essential (primary) hypertension; I25.2 Old myocardial infarction; Z79.899 Other long term (current) drug therapy; Z82.49 Family history of ischemic heart disease and other diseases of the circulatory system; Z83.3 Family history of diabetes mellitus; Z85.828 Personal history of other malignant neoplasm of skin; Z87.01 Personal history of pneumonia (recurrent); Z87.891 Personal history of nicotine dependence; Z90.710 Acquired absence of both cervix and uterus; Z96.651 Presence of right artificial knee joint; Z90.49 Acquired absence of other specified parts of digestive tract; M81.0 Age-related osteoporosis without current pathological fracture; Z86.14 Personal history of Methicillin resistant Staphylococcus aureus infection; R07.89 Other chest pain
CPT/HCPCS: 36415; 71046; 71275; 78452; 80048; 80053; 80061; 83605; 83735; 84132; 84484; 85025; 85379; 85610; 85730; 87040; 93005; 93017; 93306; 96365; 96375; 99285

== ENCOUNTER → 2019-10-03 | Outpatient (CLI) | payer MEDICARE, OTHER ==
[2019-10-03 10:21] LABS: HCT 42.1 % (34.0-46.0); HGB 13.3 gm/dL (11.4-16.0); MCH 30.5 pg (25.0-35.0); MCHC 31.6 g/dL (31.0-37.0); MCV 96.5 fL (80.0-100.0); Mean Platelet Volume 6.9; Platelet Count 216 k/uL (150-450); RBC 4.37 m/uL (3.80-5.40); RDW 13.5 % (11.5-15.5); WBC 6.1 k/uL (3.8-10.6)
[2019-10-03 10:52] LABS: Appearance,Urine Cloudy (Clear); Bacteria,Urine Many /hpf; Bilirubin,Urine Negative (Negative); Blood,Urine Negative (Negative); Color,Urine Yellow; Glucose,Urine (UA) Negative (Negative); Ketones,Urine Negative (Negative); Leukocyte Esterase,Urine Large (Negative); Mucus,Urine Rare /hpf; Nitrite,Urine Negative (Negative); Protein,Urine Trace (Negative); RBC,Urine 3 /hpf (0-5); Specific Gravity,Urine 1.021 (1.001-1.035); Squamous Epithelial Cell,Urine 4 /hpf (0-4); Urobilinogen,Urine <2.0 mg/dL (<2.0); WBC,Urine 162 /hpf (0-5)
[2019-10-03 17:16] LABS: % Iron Saturation 28.29 (12.00-45.00); Magnesium 1.3 mg/dL (1.5-2.4); Phosphorus 2.8 mg/dL (2.4-5.1); Uric Acid 4.5 mg/dL (2.9-7.7)
[2019-10-03 17:17] LABS: African American GFR (CKD) 101.7 (60.0-200.0); Albumin 4.2 g/dL (3.80-4.90); Albumin/Globulin Ratio 2.1 (1.60-3.17); Anion Gap 14.3 mmol/L (4.00-12.00); BUN/Creat Ratio 27.14 Ratio (12.00-20.00); Calcium 9.2 mg/dL (8.7-10.3); Carbon Dioxide 20.7 mmol/L (21.6-31.8); Non-African American GFR(CKD) 87.8 (60.0-200.0); Potassium 3.7 mmol/L (3.5-5.5); Total Bilirubin 0.6 mg/dL (0.3-1.2); Total Protein 6.2 g/dL (6.2-8.2)
== END | disposition home or self-care (01) ==
LOC: LABWHC1 08:37
PROVIDERS: ATTEND Internal Medicine
DX: N39.0 Urinary tract infection, site not specified (principal); E87.6 Hypokalemia; D64.9 Anemia, unspecified; N25.81 Secondary hyperparathyroidism of renal origin; E55.9 Vitamin D deficiency, unspecified; M10.9 Gout, unspecified
CPT/HCPCS: 36415; 80053; 81001; 82306; 82728; 83540; 83550; 83735; 83970; 84100; 84550; 85027

== ENCOUNTER 2020-02-06 16:33 | Inpatient (IN) | payer MEDICARE, OTHER ==
[2020-02-06 17:31] LABS: Albumin 5.1 g/dL (3.5-5.0); Calcium 9.9 mg/dL (8.4-10.2); Magnesium 1.1 mg/dL (1.6-2.3); Total Protein 8.4 g/dL (6.3-8.2)
[2020-02-06 17:37] LABS: Potassium 3.9 mmol/L (3.5-5.1)
[2020-02-06 17:38] LABS: Basophils # (A) 0.1 k/uL (0-0.2); Basophils % (A) 1 %; Eosinophils # (A) 0.2 k/uL (0-0.7); Eosinophils % (A) 2 %; HCT 44.3 % (34.0-46.0); HGB 15.6 gm/dL (11.4-16.0); Hyperchromasia Moderate; Lymphocytes # (A) 2.9 k/uL (1.0-4.8); Lymphocytes % (A) 23 %; MCH 31.5 pg (25.0-35.0); MCHC 35.3 g/dL (31.0-37.0); MCV 89.3 fL (80.0-100.0); Mean Platelet Volume 7.6; Monocytes # (A) 1.1 k/uL (0-1.0); Monocytes % (A) 9 %; Neutrophils # (A) 7.9 k/uL (1.3-7.7); Neutrophils % (A) 63 %; Platelet Count 384 k/uL (150-450); Poikilocytosis Moderate; RBC 4.96 m/uL (3.80-5.40); RDW 15.7 % (11.5-15.5); WBC 12.4 k/uL (3.8-10.6)
[2020-02-06] MEDS ORDERED: MAGNESIUM OXIDE 400 MG TAB PO STA (18:15)
--- NOTE | 2020-02-06 19:20 | ED ---
Recheck HPI - General Source: patient Mode of arrival: wheelchair Limitations: no limitations <Shasta Reid - Last Filed: 02/06/20 19:27> <Samira Molina - Last Filed: 02/07/20 23:42> - General Chief Complaint: Recheck/Abnormal Lab/Rx Stated Complaint: weakness/sent by pcp Time Seen by Provider: 02/06/20 16:39 - History of Present Illness Initial Comments: 70yo female presenting to the ER today for abnormal labs, generalized weakness, nausea, leg cramping. Patient states she typically struggles of hypo-magnesium, hypokalemia which they believe is secondary to patient's chronic diarrhea that she's had for 40 years. Patient states that yesterday she felt weak all over and had some leg cramping which typically happens when her electrolytes are off. Patient denies any chest pain shortness of breath, abdominal pain and leg swelling she denies any bloody stools or vomiting. Patient denies any fever cou gh or upper respiratory symptoms. Patient denies additional complaints. Upon arrival she appears nontoxic, in no distress. Pt is accompanied by daughter. Pt was sent to the ER for abnormal labs. (Shasta Reid) - Related Data Home Medications Medication Instructions Recorded Confirmed Magnesium Oxide [Magox 400] 400 mg PO DAILY 07/16/16 02/06/20 Potassium Chloride ER [K-Dur 10] 20 meq PO DAILY 06/11/19 02/06/20 Spironolactone 25 mg PO DAILY 06/11/19 02/06/20 Ascorbic Acid [Vitamin C] 500 mg PO DAILY 02/06/20 02/06/20 Multivitamins, Thera [Multivitamin 1 tab PO DAILY 02/06/20 02/06/20 (formulary)] Allergies Allergy/AdvReac Type Severity Reaction Status Date / Time No Known Allergies Allergy Verified 02/06/20 18:30 Review of Systems ROS Other: All systems not noted in ROS Statement are negative. <Shasta Reid - Last Filed: 02/06/20 19:27> ROS Other: All systems not noted in ROS Statement are negative. <Samira Molina - Last Filed: 02/07/20 23:42> ROS Statement: Those systems with pertinent positive or pertinent negative responses have been documented in the HPI. 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, mult skin cancer on face Last Myocardial Infarction Date:: 1994 History of Any Multi-Drug Resistant Organisms: MRSA Date of last positivie culture/infection: 2010- MDRO Source:: abdomen from 2nd bowel surg Past Surgical History: Bowel Resection, Cholecystectomy, Heart Catheterization, Hysterectomy, Joint Replacement, Tonsillectomy Additional Past Surgical History / Comment(s): Ovarian cysts removed, skin cancer removed from face, bowel surgery x 2 for obstruction(1st 40 yrs ago, 2010), rt knee replacement, Past Anesthesia/Blood Transfusion Reactions: No Reported Reaction Past Psychological History: No Psychological Hx Reported Smoking Status: Never smoker Past Alcohol Use History: Occasional Past Drug Use History: None Reported - Past Family History Father Family Medical History: Coronary Artery Disease (CAD), Diabetes Mellitus Mother Family Medical History: Cancer Additional Family Medical History / Comment(s): breast Sister(s) Family Medical History: Cancer Additional Family Medical History / Comment(s): Breast <Sheridan Reidscott Clayton - Last Filed: 02/06/20 19:27> General Exam Limitations: no limitations <Sheridan Reidscott Clayton - Last Filed: 02/06/20 19:27> - General Exam Comments Initial Comments: General: The patient is awake and alert, in no distress Eye: +3 mm pupils are equal, round and reactive to light, extra-ocular movements are intact. No nystagmus. There is normal conjunctiva bilaterally. No signs of icterus. Ears, nose, mouth and throat: There are moist mucous membranes and no oral lesions. Neck: The neck is supple, there is no tenderness or JVD. Cardiovascular: There is a regular rate and rhythm. No murmur, rub or gallop is appreciated. Respiratory: Lungs are clear to auscultation, respirations are non-labored, breath sounds are equal. No wheezes, stridor, rales, or rhonchi. Gastrointestinal: Soft, non-distended, non-tender abdomen without masses or organomegaly noted. There is no rebound or guarding present. Musculoskeletal: Normal ROM, no tenderness. Strength 5/5. Sensation intact. Radial pulses equal bilaterally 2+. Neurological: A&O x 3. CN II-XII intact grossly, There are no obvious motor or sensory deficits. Coordination appears grossly intact. Speech is normal. Skin: Skin is warm and dry and no rashes or lesions are noted. Psychiatric: Cooperative, appropriate mood & affect, normal judgment. (Shasta Reid) Course Vital Signs 02/06/20 02/06/20 16:35 20:38 Temperature 98.1 F Pulse Rate 94 76 Respiratory 18 18 Rate Blood Pressure 107/68 112/55 O2 Sat by Pulse 98 97 Oximetry Medical Decision Making - Lab Data Result diagrams: 02/06/20 17:11 02/06/20 17:12 <Shasta Reid - Last Filed: 02/06/20 19:27> - Lab Data Result diagrams: 02/07/20 12:27 02/07/20 20:46 <Samira Molina - Last Filed: 02/07/20 23:42> - Medical Decision Making 70 yo female presenting today for chief complaint of generalized weakness leg cramping nausea. Patient is found have a low magnesium at 1.1. Patient is symptomatic opiate given 4 g of mag sulfate IV piggyback over 2-4 hours. Patient has QT prolongation on EKG concerning for arrangement secondary to hypomagnesemia. Patient will be admitted on telemetry for monitoring and correction of electrolytes. Patient is agreeable to admission and care plan. Care was delayed secondary to inability to establish access. Patient has multiple attempts by nursing staff. Amy Medina attempted to establish midline access via US. Patient finally has IV established by my attending Dr. Molina who is agreeable to care plan and admission. (Shasta Reid) I was available for consultation in the emergency department. The history and physical exam were done by the midlevel provider. I was consulted for this patients care. I reviewed the case with the midlevel provider and based on their presentation of the patient, I agree with the assessment, medical decision making and plan of care as documented. Patient difficult to establish IV access on by nursing staff therefore I used the US to place line. Patient was evaluated myself. Will be admitted to Dr. Brennan who agreed to admit the patient. Patients medications are reviewed and none cause prolonged QT. Chart was dictated using Dragon dictation software. Attempts were made to correct any dictation errors however some typographical errors may persist. Patient was seen during a national state of emergency due to the Covid-19 pandemic. (Samira Molina) - Lab Data Lab Results 02/06/20 02/06/20 02/06/20 Range/Units 17:11 17:12 18:20 WBC 12.4 H (3.8-10.6) k/uL RBC 4.96 (3.80-5.40) m/uL Hgb 15.6 (11.4-16.0) gm/dL Hct 44.3 (34.0-46.0) % MCV 89.3 (80.0-100.0) fL MCH 31.5 (25.0-35.0) pg MCHC 35.3 (31.0-37.0) g/dL RDW 15.7 H (11.5-15.5) % Plt Count 384 (150-450) k/uL Neutrophils % 63 % Lymphocytes % 23 % Monocytes % 9 % Eosinophils % 2 % Basophils % 1 % Neutrophils # 7.9 H (1.3-7.7) k/uL Lymphocytes # 2.9 (1.0-4.8) k/uL Monocytes # 1.1 H (0-1.0) k/uL Eosinophils # 0.2 (0-0.7) k/uL Basophils # 0.1 (0-0.2) k/uL Hyperchromasia Moderate Poikilocytosis Moderate Sodium 136 L (137-145) mmol/L Potassium 3.9 (3.5-5.1) mmol/L Chloride 102 (98-107) mmol/L Carbon Dioxide 21 L (22-30) mmol/L Anion Gap 13 mmol/L BUN 14 (7-17) mg/dL Creatinine 0.89 (0.52-1.04) mg/dL Est GFR (CKD-EPI)AfAm 76 (>60 ml/min/1.73 sqM) Est GFR (CKD-EPI)NonAf 66 (>60 ml/min/1.73 sqM) Glucose 116 H (74-99) mg/dL Calcium 9.9 (8.4-10.2) mg/dL Phosphorus 2.5 (2.5-4.5) mg/dL Magnesium 1.1 L (1.6-2.3) mg/dL Total Bilirubin 2.0 H (0.2-1.3) mg/dL AST 76 H (14-36) U/L ALT 46 H (4-34) U/L Alkaline Phosphatase 99 (38-126) U/L Total Protein 8.4 H (6.3-8.2) g/dL Albumin 5.1 H (3.5-5.0) g/dL Disposition Is patient prescribed a controlled substance at d/c from ED?: No Time of Disposition: 19:26 Decision to Admit Reason: Admit from EC Decision Date: 02/06/20 Decision Time: 19:26 <Shasta Reid - Last Filed: 02/06/20 19:27> <Samira Molina - Last Filed: 02/07/20 23:42> Clinical Impression: Elevated bilirubin, Nausea, Generalized weakness, Hypomagnesemia, Leg cramping, Prolonged QT interval Disposition: ADMITTED IP TO THIS [facility] Condition: Stable
[2020-02-06] MEDS ORDERED: NALOXONE 0.4 MG/ML 1 ML VIAL IV PRN (19:26)
[2020-02-06] MEDS: MAGNESIUM SULFATE-D5W PMX 1 GM in DEXTROSE/WATER 1 100ML.BAG IVPB SCH ×4 (19:55→23:37)
[2020-02-06] MEDS: SODIUM CHLORIDE 0.9% 1,000 ML IV SCH (19:55)
[2020-02-07 11:18] VITALS: BMI 21.2
[2020-02-07 13:05] LABS: HCT 44.5 % (34.0-46.0); HGB 15.7 gm/dL (11.4-16.0); Hyperchromasia Slight; MCH 31.9 pg (25.0-35.0); MCHC 35.4 g/dL (31.0-37.0); MCV 90.2 fL (80.0-100.0); Mean Platelet Volume 6.7; Platelet Count 358 k/uL (150-450); Poikilocytosis Moderate; RBC 4.94 m/uL (3.80-5.40); RDW 15.6 % (11.5-15.5); WBC 12.9 k/uL (3.8-10.6)
[2020-02-07 13:07] LABS: African American GFR (CKD) >90 (>60 ml/min/1.73 sqM); Anion Gap 12 mmol/L; Blood Urea Nitrogen 15 mg/dL (7-17); Calcium 9.5 mg/dL (8.4-10.2); Carbon Dioxide 24 mmol/L (22-30); Chloride 99 mmol/L (98-107); Glucose 117 mg/dL (74-99); Non-African American GFR(CKD) 81 (>60 ml/min/1.73 sqM); Sodium 135 mmol/L (137-145)
[2020-02-07 13:20] LABS: Potassium 2.1 mmol/L (3.5-5.1)
[2020-02-07] MEDS ORDERED: KETOROLAC 30 MG/ML 1 ML VIAL IVP STA (14:28)
[2020-02-07] MEDS ORDERED: KETOROLAC 30 MG/ML 1 ML VIAL IVP PRN (14:28)
[2020-02-07] MEDS ORDERED: traMADol 50 MG TAB PO PRN (14:35)
[2020-02-07] MEDS: SPIRONOLACTONE 25 MG TAB PO SCH (14:52)
[2020-02-07] MEDS: POTASSIUM CHLORIDE ER 20 MEQ TAB.ER PO SCH ×3 (14:52→23:19)
[2020-02-07] MEDS: MULTIVITAMINS, THERA 1 EACH TAB PO SCH (14:52)
[2020-02-07] MEDS: PANTOPRAZOLE 40 MG/10 ML VIAL IVP SCH (15:19)
[2020-02-07] MEDS: SODIUM CHLORIDE 0.9% 1,000 ML IV SCH ×2 (15:20→23:22)
[2020-02-07] MEDS ORDERED: Potassium Replacement Protocol 1 EACH MISC MISCELLANE PRN ×4 (15:24→21:34)
[2020-02-07] MEDS ORDERED: POTASSIUM CHLORIDE ER 20 MEQ TAB.ER PO STA (15:43)
--- NOTE | 2020-02-07 16:15 | P.HPIM ---
History of Present Illness H&P Date: 02/07/20 Chief Complaint: Abn labs at PCP-Symptomatic hypomagnesemia This is a 70-year-old female with history of bowel obstructions 2 with chronic diarrhea since second bowel resection surgery, hypercholesterol, hypertension , former nicotine dependence and multiple other medical issues, sent to the ER with symptomatic hypomagnesemia , by PCP.Complaints of generalized weakness, n ausea, decreased appetite with a magnesium of 1.1 on admission. Patient reports averages 10-20 bowel movements per day. Since admission patient has had 4 bowel movements .EKG reporting normal sinus rhythm, possible anterior lateral ischemia, prolonged QT. Troponin pending . Denies chest pain, palpitations or shortness of breath. Denies abdominal pain. No emesis . Denies any fever or chills . No cough Received IV magnesium supplementation, IV fluid hydration. Telemetry currently sinus rhythm with a QT interval 0.58. Patient reports occasional EtOH use .Mildly elevated LFTs with T bili 2. Hemoglobin/MCV within normal limits. Patient reports bowel resection surgery was due to bowel o bstructions and not to cancer. States skin cancer. Patient denies prior diagnosis of celiac disease but states she has a history of diverticulosis. History of nicotine dependence. Review of Systems ROS Statement: Those systems with pertinent positive or pertinent negative responses have been documented in the HPI. ROS Other: All systems not noted in ROS Statement are negative. 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, mult skin cancer on face Last Myocardial Infarction Date:: 1994 History of Any Multi-Drug Resistant Organisms: MRSA Date of last positivie culture/infection: 2010- MDRO Source:: abdomen from 2nd bowel surg Past Surgical History: Bowel Resection, Cholecystectomy, Heart Catheterization, Hysterectomy, Joint Replacement, Tonsillectomy Additional Past Surgical History / Comment(s): Ovarian cysts removed, skin c ancer removed from face, bowel surgery x 2 for obstruction (1st 40 yrs ago, 2010), right knee replacement, Past Anesthesia/Blood Transfusion Reactions: No Reported Reaction Past Psychological History: No Psychological Hx Reported Smoking Status: Never smoker Past Alcohol Use History: Occasional Additional Past Alcohol Use History / Comment(s): started smoking 1966 and quit 2000 smoked 1 ppd. Past Drug Use History: None Reported - Past Family History Father Family Medical History: Coronary Artery Disease (CAD), Diabetes Mellitus Mother Family Medical History: Cancer Additional Family Medical History / Comment(s): breast Sister(s) Family Medical History: Cancer Additional Family Medical History / Comment(s): Breast Medications and Allergies Home Medications Medication Instructions Recorded Confirmed Type Magnesium Oxide [Magox 400] 400 mg PO DAILY 07/16/16 02/06/20 History Potassium Chloride ER [K-Dur 10] 20 meq PO DAILY 06/11/19 02/06/20 History Spironolactone 25 mg PO DAILY 06/11/19 02/06/20 History Ascorbic Acid [Vitamin C] 500 mg PO DAILY 02/06/20 02/06/20 History Multivitamins, Thera [Multivitamin 1 tab PO DAILY 02/06/20 02/06/20 History (formulary)] Allergies Allergy/AdvReac Type Severity Reaction Status Date / Time No Known Allergies Allergy Verified 02/06/20 18:30 Physical Exam Vitals: Vital Signs Temp Pulse Pulse Resp BP BP Pulse Ox 02/07/20 09:16 73 16 02/07/20 06:57 98 F 73 16 111/55 98 02/07/20 01:45 97.9 F 77 16 104/63 93 L 02/06/20 21:05 98.2 F 80 16 120/73 99 02/06/20 20:38 76 18 112/55 97 02/06/20 16:35 98.1 F 94 18 107/68 98 Intake and Output 02/06/20 02/07/20 02/07/20 22:59 06:59 14:59 Intake Total 225 Balance 225 Intake: Intake, IV Titration 225 Amount Sodium Chloride 0.9% 1, 225 000 ml @ 75 mls/hr IV . [id number] [facility] Rx#:[id number] Other: Voiding Method Toilet Toilet Toilet Bedside Commode Bedside Commode Bedside Commode # Bowel Movements 3 Weight 52.617 kg 52.617 kg PHYSICAL EXAM: VITAL SIGNS: As above GENERAL: Sitting up in bed, no acute distress HEENT: Conjunctivae normal. eyes normal. NECK: No JVD. No thyroid enlargement. No LNs CARDIOVASCULAR: S1, S2 regular. No murmur RESPIRATION: Breath sounds diminished in the bases. No rhonchi or crackles. No bronchial breathing. ABDOMEN: Soft, nontender . No guarding. no masses palpable. No ascites, No hepatosplenomegaly.hyperactive Bowel sounds heard. LEGS: No edema. no swelling PSYCHIATRY: Alert and oriented X3, mood and affect normal. NERVOUS SYSTEM: Cranial N 2-12 grossly normal. Moves all 4 limbs. Diffuse weakness No focal deficits. Strength and sensation grossly intact.. Skin: no rash Lymphatic system. No LN neck axilla. Results CBC & Chem 7: 02/07/20 12:27 02/07/20 13:58 Labs: Abnormal Lab Results - Last 24 Hours (Table) 02/06/20 02/06/20 02/07/20 Range/Units 17:11 17:12 01:00 WBC 12.4 H (3.8-10.6) k/uL RDW 15.7 H (11.5-15.5) % Neutrophils # 7.9 H (1.3-7.7) k/uL Monocytes # 1.1 H (0-1.0) k/uL Sodium 136 L (137-145) mmol/L Carbon Dioxide 21 L (22-30) mmol/L Glucose 116 H (74-99) mg/dL Magnesium 1.1 L 2.8 H (1.6-2.3) mg/dL Total Bilirubin 2.0 H (0.2-1.3) mg/dL AST 76 H (14-36) U/L ALT 46 H (4-34) U/L Total Protein 8.4 H (6.3-8.2) g/dL Albumin 5.1 H (3.5-5.0) g/dL Thrombosis Risk Factor Assmnt - Choose All That Apply Any of the Below Risk Factors Present?: No Other Risk Factors: Yes Each Risk Factor Represents 2 Points: Age 61-74 years Other congenital or acquired thrombophilia - If yes, enter type in comment: No Thrombosis Risk Factor Assessment Total Risk Factor Score: 2 Thrombosis Risk Factor Assessment Level: Low Risk Assessment and Plan Assessment: Generalized weakness, nausea, decreased appetite secondary to Hypomagnesemia in a patient with history of bowel obstructions 2 with chronic diarrhea since b owel resection. Prolonged QT, secondary to the above, does not appear to be med induced, metabolic Diverticulosis Possible celiac disease, workup in progress Mildly elevated LFTs with elevated T bili, etiology unclear, in a patient with history of cholecystectomy Hypokalemia Occasional EtOH use Prior nicotine dependence Hypertension Hyperlipidemia Plan: Continue on current medication regime ,monitoring and symptomatic treatment. Gentle IV fluid hydration. Ensure supplements, dietary consult. Stool chart be maintained. Celiac panel ordered. GI consulted. Currently potassium level pending. Potassium replacement protocol. Close monitoring of LFTs/T bili , electrolytes,coags with repeat labs ordered for a.m. Home meds have been reviewed and resumed accordingly. GI and DVT prophylaxis in place. Close monitoring of QT interval. The impression and plan of care has been dictated as directed. : I performed a history and examination of this patient, discussed the same with the dictator. I agree with the dictator's note ,documented as a scribe. Any additional findings or plans will be noted.
[2020-02-07] MEDS: POTASSIUM CHLORIDE 10 MEQ in WATER FOR INJECTION 1 100ML.BAG IVPB SCH ×3 (16:18→22:01)
[2020-02-08] MEDS: POTASSIUM CHLORIDE ER 20 MEQ TAB.ER PO SCH ×2 (00:29→07:34)
[2020-02-08] MEDS: POTASSIUM CHLORIDE 10 MEQ in WATER FOR INJECTION 1 100ML.BAG IVPB SCH ×5 (00:29→10:59)
[2020-02-08 02:57] VITALS: RESP 18
[2020-02-08 06:16] LABS: Gliadin AB IgA, Deaminated POSITIVE (NEGATIVE); Gliadin AB IgA, Unit 34.3 U/mL; Gliadin AB IgG, Deaminated NEGATIVE (NEGATIVE)
[2020-02-08] MEDS: MULTIVITAMINS, THERA 1 EACH TAB PO SCH (07:34)
[2020-02-08] MEDS: SPIRONOLACTONE 25 MG TAB PO SCH (07:35)
[2020-02-08 08:26] LABS: Basophils % (A) 0 %; Eosinophils # (A) 0.2 k/uL (0-0.7); Eosinophils % (A) 2 %; HCT 39.1 % (34.0-46.0); HGB 13.8 gm/dL (11.4-16.0); Hyperchromasia Slight; Lymphocytes # (A) 2.4 k/uL (1.0-4.8); Lymphocytes % (A) 25 %; MCH 32.1 pg (25.0-35.0); MCHC 35.2 g/dL (31.0-37.0); MCV 91.1 fL (80.0-100.0); Mean Platelet Volume 7.9; Monocytes # (A) 0.9 k/uL (0-1.0); Monocytes % (A) 9 %; Neutrophils # (A) 6.1 k/uL (1.3-7.7); Neutrophils % (A) 62 %; Platelet Count 304 k/uL (150-450); Poikilocytosis Moderate; RDW 15.9 % (11.5-15.5); WBC 9.8 k/uL (3.8-10.6)
[2020-02-08] MEDS: PANTOPRAZOLE 40 MG/10 ML VIAL IVP SCH (08:30)
[2020-02-08] MEDS ORDERED: MAGNESIUM OXIDE 400 MG TAB PO SCH (09:00)
[2020-02-08] MEDS ORDERED: ASCORBIC ACID 500 MG TAB PO SCH (09:00)
[2020-02-08 09:13] LABS: Albumin 3.1 g/dL (3.5-5.0); Total Bilirubin 0.8 mg/dL (0.2-1.3); Total Protein 5.4 g/dL (6.3-8.2)
[2020-02-08] MEDS ORDERED: DIPHENOX-ATROP 2.5-0.025 MG 1 EACH TAB PO PRN (11:30)
[2020-02-08] MEDS ORDERED: DICYCLOMINE 10 MG CAP PO PRN (11:32)
[2020-02-08 13:46] VITALS: BP 96/60; PULSE 66; TEMP 97.7
--- NOTE | 2020-02-08 14:34 | P.DS ---
Providers Date of admission: 02/06/20 19:43 Expected date of discharge: 02/08/20 Attending physician: Breezy Cronin Consults: 02/07/20 12:36 Consult Physician Routine Consulting Provider: Jasmeet Caraballo Consult Reason/Comments: Chronic diarrhea Do you want consulting provider notified?: Yes Primary care physician: Breezy Cronin Hospital Course: Final Diagnoses: Generalized weakness, nausea, decreased appetite secondary to Hypomagnesemia in a patient with history of bowel obstructions 2 with chronic diarrhea since bowel resection. Prolonged QT, secondary to the above, does not appear to be med induced, metabolic Diverticulosis EGD with biopsies in 2018 reported no celiac disease as reported per GI. 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 Mildly elevated LFTs with elevated T bili, etiology unclear, in a patient with history of cholecystectomy Hypokalemia Occasional EtOH use Prior nicotine dependence Hypertension Hyperlipidemia Hospital course:This is a 70-year-old female with history of bowel obstructions 2 with chronic diarrhea since second bowel resection surgery, hypercholesterol, hypertension , former nicotine dependence and multiple other medical issues, sent to the ER with symptomatic hypomagnesemia , by PCP.Complaints of generalized weakness, nausea, decreased appetite with a magnesium of 1.1 on admission. Patient reports averages 10-20 bowel movements per day. Since admission patient has had 4 bowel movements .EKG reporting normal sinus rhythm, possible anterior lateral ischemia, prolonged QT. Troponin pending . Denies chest pain, palpitations or shortness of breath. Denies abdominal pain. No emesis . Denies any fever or chills . No cough Received IV magnesium supplementation, IV fluid hydration. Telemetry currently sinus rhythm with a QT interval 0.58. Patient reports occasional EtOH use .Mildly elevated LFTs with T bili 2. Hemoglobin/MCV within normal limits. Patient reports bowel resection surgery was due to bowel obstructions and not to cancer. States skin cancer. Patient denies prior diagnosis of celiac disease but states she has a history of diverticulosis. History of nicotine dependence. Evaluated by GI placed on Bentyl, probiotics, lomotil with significant clinical improvement. Good diet intake with no nausea vomiting. Diarrhea improved with one bowel movement last night and one today. Denies abdominal pain. Receiving potassium supplementation. Patient will be discharged home today in a stable condition with guarded prognosis, pending normalized potassium post supplementation, normal magnesium level. The impression and plan of care has been dictated as directed. : I performed a history and examination of this patient, discussed the same with the dictator. I agree with the dictator's note ,documented as a scribe. Any additional findings or plans will be noted. Patient Condition at Discharge: Stable Plan - Discharge Summary Discharge Rx Participant: No New Discharge Prescriptions: New Dicyclomine [Bentyl] 10 mg PO QID PRN #120 cap PRN Reason: Dyspepsia Diphenox-Atrop 2.5-0.025 mg [Lomotil] 1 each PO TID #21 tab Pantoprazole [Protonix] 40 mg PO AC-BRKFST #30 tablet.dr Lynn Magnesium Oxide [Magox 400] 400 mg PO DAILY Potassium Chloride ER [K-Dur 10] 20 meq PO DAILY Spironolactone 25 mg PO DAILY Ascorbic Acid [Vitamin C] 500 mg PO DAILY Multivitamins, Thera [Multivitamin (formulary)] 1 tab PO DAILY Discharge Medication List Magnesium Oxide [Magox 400] 400 mg PO DAILY 07/16/16 [History] Potassium Chloride ER [K-Dur 10] 20 meq PO DAILY 06/11/19 [History] Spironolactone 25 mg PO DAILY 06/11/19 [History] Ascorbic Acid [Vitamin C] 500 mg PO DAILY 02/06/20 [History] Multivitamins, Thera [Multivitamin (formulary)] 1 tab PO DAILY 02/06/20 [History] Dicyclomine [Bentyl] 10 mg PO QID PRN #120 cap 02/08/20 [Rx] Diphenox-Atrop 2.5-0.025 mg [Lomotil] 1 each PO TID #21 tab 02/08/20 [Rx] Pantoprazole [Protonix] 40 mg PO AC-BRKFST #30 tablet. 02/08/20 [Rx] Follow up Appointment(s)/Referral(s): Breezy Cronin MD [Primary Care Provider] - 3 Days Jasmeet Caraballo MD [STAFF PHYSICIAN] - 2 Weeks Ambulatory/Diagnostic Orders: Basic Metabolic Panel [LAB.AMB] Time Frame: 3 Days, Location: None Selected Activity/Diet/Wound Care/Special Instructions: Pending potassium supplementation and recheck, pending magnesium level
[2020-02-08 16:57] LABS: Magnesium 1.9 mg/dL (1.6-2.3); Potassium 3.4 mmol/L (3.5-5.1)
[2020-02-08] MEDS ORDERED: POTASSIUM CHLORIDE ER 20 MEQ TAB.ER PO STA (17:01)
[2020-02-09] MEDS ORDERED: PANTOPRAZOLE 40 MG TABLET PO SCH (07:30)
== END 2020-02-08 17:45 | disposition home or self-care (01) | DRG 641 ==
LOC: EC 16:33 → 4SSUR 19:43
PROVIDERS: ADMIT Family Medicine; ATTEND Family Medicine
PROC: 05HB33Z Insertion of Infusion Device into Right Basilic Vein, Percutaneous Approach (ICD-10-PCS; principal; 2020-02-07 15:05)
DX: E83.42 Hypomagnesemia (principal); R17 Unspecified jaundice; E87.6 Hypokalemia; E78.00 Pure hypercholesterolemia, unspecified; E78.5 Hyperlipidemia, unspecified; I10 Essential (primary) hypertension; I25.2 Old myocardial infarction; K52.9 Noninfective gastroenteritis and colitis, unspecified; K57.90 Diverticulosis of intestine, part unspecified, without perforation or abscess without bleeding; R94.31 Abnormal electrocardiogram [ECG] [EKG]; M81.0 Age-related osteoporosis without current pathological fracture; Z11.59 Encounter for screening for other viral diseases; R74.8 Abnormal levels of other serum enzymes; R11.0 Nausea; Z79.899 Other long term (current) drug therapy; Z96.651 Presence of right artificial knee joint; Z90.710 Acquired absence of both cervix and uterus; Z90.49 Acquired absence of other specified parts of digestive tract; Z87.891 Personal history of nicotine dependence; Z85.828 Personal history of other malignant neoplasm of skin; Z86.14 Personal history of Methicillin resistant Staphylococcus aureus infection; Z82.49 Family history of ischemic heart disease and other diseases of the circulatory system; Z83.3 Family history of diabetes mellitus; Z80.3 Family history of malignant neoplasm of breast
CPT/HCPCS: 36410; 36415; 76937; 80048; 80053; 83516; 83735; 84100; 84132; 84484; 85025; 85027; 87045; 87046; 93005; 96365; 99285

== ENCOUNTER 2020-04-16 08:48 | Inpatient (IN) | payer MEDICARE, OTHER ==
[2020-04-16] MEDS ORDERED: HYDROmorphone 0.5 MG/0.5 ML SYRINGE IVP STA (09:01)
--- NOTE | 2020-04-16 09:07 | ED ---
General Adult HPI - General Chief complaint: Abdominal Pain Stated complaint: Abd pain Time Seen by Provider: 04/16/20 08:50 Source: patient, RN notes reviewed, old records reviewed Mode of arrival: ambulatory Limitations: no limitations - History of Present Illness Initial comments: This is a 70-year-old female presents emergency Department complaining of left lower quadrant abdominal pain 2 days. Patient states the pain is getting progressively worse per patient states she does have history of diverticulosis. Patient states she has a history of appendectomy as well as cholecystectomy. Patient denies any nausea vomiting diarrhea per patient denies any fever or chills. Patient's only complaint is left lower quadrant pain he states is getting worse per patient states driving here hitting bumps been considerably worse. Patient denies any dysuria hematuria urinary frequency. Patient denies any chest pain difficult breathing shortness of breath. - Related Data Home Medications Medication Instructions Recorded Confirmed Magnesium Oxide [Magox 400] 1,200 mg PO DAILY 07/16/16 04/16/20 Potassium Chloride ER [K-Dur 10] 40 meq PO DAILY 06/11/19 04/16/20 Spironolactone 25 mg PO DAILY 06/11/19 04/16/20 Ergocalciferol (Vitamin D2) 50,000 unit PO Q14D 04/16/20 04/16/20 [Drisdol] Sodium Bicarbonate Tab 650 mg PO BID 04/16/20 04/16/20 Allergies Allergy/AdvReac Type Severity Reaction Status Date / Time No Known Allergies Allergy Verified 04/16/20 11:22 Review of Systems ROS Statement: Those systems with pertinent positive or pertinent negative responses have been documented in the HPI. ROS Other: All systems not noted in ROS Statement are negative. 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, mult skin cancer on face Last Myocardial Infarction Date:: 1994 History of Any Multi-Drug Resistant Organisms: MRSA Date of last positivie culture/infection: 2010- MDRO Source:: abdomen from 2nd bowel surg Past Surgical History: Bowel Resection, Cholecystectomy, Heart Catheterization, Hysterectomy, Joint Replacement, Tonsillectomy Additional Past Surgical History / Comment(s): Ovarian cysts removed, skin cancer removed from face, bowel surgery x 2 for obstruction (1st 40 yrs ago, 2nd 2010), right knee replacement, Past Anesthesia/Blood Transfusion Reactions: No Reported Reaction Past Psychological History: No Psychological Hx Reported Smoking Status: Never smoker Past Alcohol Use History: Occasional Past Drug Use History: None Reported - Past Family History Father Family Medical History: Coronary Artery Disease (CAD), Diabetes Mellitus Mother Family Medical History: Cancer Additional Family Medical History / Comment(s): breast Sister(s) Family Medical History: Cancer Additional Family Medical History / Comment(s): Breast General Exam - General Exam Comments Initial Comments: GENERAL: Patient is well-developed and well-nourished. Patient is nontoxic and well- hydrated and is in mild distress. ENT: Neck is soft and supple. No significant lymphadenopathy is noted. Oropharynx is clear. Moist mucous membranes. Neck has full range of motion without eliciting any pain. EYES: The sclera were anicteric and conjunctiva were pink and moist. Extraocular movements were intact and pupils were equal round and reactive to light. Eyelids were unremarkable. PULMONARY: Unlabored respirations. Good breath sounds bilaterally. No audible rales rhonchi or wheezing was noted. CARDIOVASCULAR: There is a regular rate and rhythm without any murmurs gallops or rubs. ABDOMEN: Patient has rebound tenderness left lower quadrant. Patient also has some mild right lower quadrant tenderness. SKIN: Skin is clear with no lesions or rashes and otherwise unremarkable. NEUROLOGIC: Patient is alert and oriented x3. Cranial nerves II through XII are grossly intact. Motor and sensory are also intact. Normal speech, volume and content. Symmetrical smile. MUSCULOSKELETAL: Normal extremities with adequate strength and full range of motion. LYMPHATICS: No significant lymphadenopathy is noted PSYCHIATRIC: Normal psychiatric evaluation. Limitations: no limitations Course Vital Signs 04/16/20 04/16/20 04/16/20 08:49 10:56 11:59 Temperature 97.5 F L Pulse Rate 81 73 77 Respiratory 16 18 18 Rate Blood Pressure 141/62 124/56 124/54 O2 Sat by Pulse 99 98 97 Oximetry Medical Decision Making - Medical Decision Making Computed tomography scan showed inflammatory changes causing partial small bowel as well as partial colonic obstruction. Because of the inflammatory changes in the possibility of diverticulitis and started the patient on Unasyn. I spoke with Dr. Brennan he agreed to admit the patient admitted the patient wrote admitting orders I consulted surgery. - Lab Data Result diagrams: 04/16/20 08:58 04/16/20 08:58 Lab Results 04/16/20 04/16/20 04/16/20 Range/Units 08:58 08:58 09:36 WBC 6.7 (3.8-10.6) k/uL RBC 4.47 (3.80-5.40) m/uL Hgb 13.3 (11.4-16.0) gm/dL Hct 42.1 (34.0-46.0) % MCV 94.1 (80.0-100.0) fL MCH 29.7 (25.0-35.0) pg MCHC 31.6 (31.0-37.0) g/dL RDW 13.4 (11.5-15.5) % Plt Count 217 (150-450) k/uL Neutrophils % 72 % Lymphocytes % 17 % Monocytes % 8 % Eosinophils % 1 % Basophils % 1 % Neutrophils # 4.8 (1.3-7.7) k/uL Lymphocytes # 1.1 (1.0-4.8) k/uL Monocytes # 0.5 (0-1.0) k/uL Eosinophils # 0.1 (0-0.7) k/uL Basophils # 0.0 (0-0.2) k/uL Sodium 137 (137-145) mmol/L Potassium 3.4 L (3.5-5.1) mmol/L Chloride 109 H (98-107) mmol/L Carbon Dioxide 21 L (22-30) mmol/L Anion Gap 7 mmol/L BUN 12 (7-17) mg/dL Creatinine 0.61 (0.52-1.04) mg/dL Est GFR (CKD-EPI)AfAm >90 (>60 ml/min/1.73 sqM) Est GFR (CKD-EPI)NonAf >90 (>60 ml/min/1.73 sqM) Glucose 94 (74-99) mg/dL Plasma Lactic Acid Franck 0.6 L (0.7-2.0) mmol/L Calcium 9.2 (8.4-10.2) mg/dL Total Bilirubin 0.8 (0.2-1.3) mg/dL AST 24 (14-36) U/L ALT 20 (4-34) U/L Alkaline Phosphatase 92 (38-126) U/L Total Protein 6.7 (6.3-8.2) g/dL Albumin 3.9 (3.5-5.0) g/dL Amylase 57 (30-110) U/L Lipase 40 (23-300) U/L Urine Color Urine Appearance (Clear) Urine pH (5.0-8.0) Ur Specific [place] (1.001-1.035) Urine Protein (Negative) Urine Glucose (UA) (Negative) Urine Ketones (Negative) Urine Blood (Negative) Urine Nitrite (Negative) Urine Bilirubin (Negative) Urine Urobilinogen (<2.0) mg/dL Ur Leukocyte Esterase (Negative) Urine RBC (0-5) /hpf Urine WBC (0-5) /hpf Ur Squamous Epith Cells (0-4) /hpf Urine Bacteria (None) /hpf Urine Mucus (None) /hpf 04/16/20 Range/Units 09:38 WBC (3.8-10.6) k/uL RBC (3.80-5.40) m/uL Hgb (11.4-16.0) gm/dL Hct (34.0-46.0) % MCV (80.0-100.0) fL MCH (25.0-35.0) pg MCHC (31.0-37.0) g/dL RDW (11.5-15.5) % Plt Count (150-450) k/uL Neutrophils % % Lymphocytes % % Monocytes % % Eosinophils % % Basophils % % Neutrophils # (1.3-7.7) k/uL Lymphocytes # (1.0-4.8) k/uL Monocytes # (0-1.0) k/uL Eosinophils # (0-0.7) k/uL Basophils # (0-0.2) k/uL Sodium (137-145) mmol/L Potassium (3.5-5.1) mmol/L Chloride (98-107) mmol/L Carbon Dioxide (22-30) mmol/L Anion Gap mmol/L BUN (7-17) mg/dL Creatinine (0.52-1.04) mg/dL Est GFR (CKD-EPI)AfAm (>60 ml/min/1.73 sqM) Est GFR (CKD-EPI)NonAf (>60 ml/min/1.73 sqM) Glucose (74-99) mg/dL Plasma Lactic Acid Franck (0.7-2.0) mmol/L Calcium (8.4-10.2) mg/dL Total Bilirubin (0.2-1.3) mg/dL AST (14-36) U/L ALT (4-34) U/L Alkaline Phosphatase (38-126) U/L Total Protein (6.3-8.2) g/dL Albumin (3.5-5.0) g/dL Amylase (30-110) U/L Lipase (23-300) U/L Urine Color Yellow Urine Appearance Cloudy H (Clear) Urine pH 6.0 (5.0-8.0) Ur Specific [place] 1.020 (1.001-1.035) Urine Protein Negative (Negative) Urine Glucose (UA) Negative (Negative) Urine Ketones Negative (Negative) Urine Blood Negative (Negative) Urine Nitrite Negative (Negative) Urine Bilirubin Negative (Negative) Urine Urobilinogen <2.0 (<2.0) mg/dL Ur Leukocyte Esterase Negative (Negative) Urine RBC 1 (0-5) /hpf Urine WBC 1 (0-5) /hpf Ur Squamous Epith Cells 4 (0-4) /hpf Urine Bacteria Rare H (None) /hpf Urine Mucus Rare H (None) /hpf Disposition Clinical Impression: Diverticulitis, Partial small bowel obstruction Disposition: ADMITTED IP TO THIS [facility] Referrals: Chau Brennan Jr, [Primary Care Provider] - 1-2 days Time of Disposition: 12:38
[2020-04-16 09:59] LABS: Basophils % (A) 1 %; Eosinophils # (A) 0.1 k/uL (0-0.7); Eosinophils % (A) 1 %; HCT 42.1 % (34.0-46.0); HGB 13.3 gm/dL (11.4-16.0); Lymphocytes # (A) 1.1 k/uL (1.0-4.8); Lymphocytes % (A) 17 %; MCH 29.7 pg (25.0-35.0); MCHC 31.6 g/dL (31.0-37.0); MCV 94.1 fL (80.0-100.0); Mean Platelet Volume 6.6; Monocytes # (A) 0.5 k/uL (0-1.0); Monocytes % (A) 8 %; Neutrophils # (A) 4.8 k/uL (1.3-7.7); Neutrophils % (A) 72 %; Platelet Count 217 k/uL (150-450); RBC 4.47 m/uL (3.80-5.40); RDW 13.4 % (11.5-15.5); WBC 6.7 k/uL (3.8-10.6)
[2020-04-16 09:59] LABS: Appearance,Urine Cloudy (Clear); Bacteria,Urine Rare /hpf; Bilirubin,Urine Negative (Negative); Blood,Urine Negative (Negative); Color,Urine Yellow; Glucose,Urine (UA) Negative (Negative); Ketones,Urine Negative (Negative); Leukocyte Esterase,Urine Negative (Negative); Mucus,Urine Rare /hpf; Nitrite,Urine Negative (Negative); Protein,Urine Negative (Negative); RBC,Urine 1 /hpf (0-5); Squamous Epithelial Cell,Urine 4 /hpf (0-4); Urobilinogen,Urine <2.0 mg/dL (<2.0); WBC,Urine 1 /hpf (0-5)
[2020-04-16 10:03] LABS: ALT 20 U/L (4-34); AST 24 U/L (14-36); African American GFR (CKD) >90 (>60 ml/min/1.73 sqM); Albumin 3.9 g/dL (3.5-5.0); Alkaline Phosphatase 92 U/L (38-126); Amylase 57 U/L (30-110); Anion Gap 7 mmol/L; Blood Urea Nitrogen 12 mg/dL (7-17); Calcium 9.2 mg/dL (8.4-10.2); Carbon Dioxide 21 mmol/L (22-30); Chloride 109 mmol/L (98-107); Glucose 94 mg/dL (74-99); Lipase 40 U/L (23-300); Non-African American GFR(CKD) >90 (>60 ml/min/1.73 sqM); Potassium 3.4 mmol/L (3.5-5.1); Sodium 137 mmol/L (137-145); Total Bilirubin 0.8 mg/dL (0.2-1.3); Total Protein 6.7 g/dL (6.3-8.2)
[2020-04-16] MEDS ORDERED: AMPICILLIN-SULBACTAM 3 GM in SODIUM CHLORIDE 0.9% 100 ML IVPB STA (12:28)
--- NOTE | 2020-04-16 12:35 | CT ---
EXAMINATION TYPE: CT abdomen pelvis w con DATE OF EXAM: 04/16/2020 COMPARISON: 03/13/2018 INDICATION: Abdominal pain with history of bowel resection x 2 DLP: 726 mGycm, Automated exposure control for dose reduction was used. CONTRAST: 100 ml mL of Isovue 300. Study performed without Oral Contrast TECHNIQUE: Axial images were obtained from above the diaphragm to the pubic rami in the axial plane a t 5 mm thick sections. Reconstructed images are reviewed on the computer in the coronal plane. FINDINGS: Limited CT sections are obtained the lung bases. The lung bases are clear. CT ABDOMEN: Liver: There is prominence of the extrahepatic biliary ducts. This is not dilated at 1.0 cm for a pos t cholecystectomy patient. Spleen: Normal Pancreas: Some fatty infiltration is at the head of the pancreas. Adrenal glands: The adrenal glands are normal. Gallbladder: Surgically absent Kidneys: No masses are evident. No hydronephrosis is present. There is a complex cortical renal cys t within the lateral left mid kidney measuring 2.0 cm. Delayed images were obtained through the kidn eys, which remain unremarkable. Aorta: Vascular calcification is within the aorta. Inferior vena cava: Normal. CT PELVIS: There are dilated small bowel loops within the pelvis. There is fluid filled colon at the anastomosis in the right lower quadrant. Increased density is in the anterior pelvis which appears to be inflamm atory change may be contributing to some partial obstruction. Some distal colonic partial obstructio n may also be present again within the sigmoid colon adjacent to the suspected inflammatory change. Appendix: Not visualized Urinary bladder: Normal. Genitourinary structures: Uterus and ovaries are not identified. Osseous structures: Sclerotic lesions within the superior right acetabular region, small sclerotic ar ea is medially within the left sacrum. Facet degenerative changes are noted. IMPRESSIONS: 1. Inflammatory type change within the lower anterior pelvis better visualized on the current exami nation. Dilated fluid-filled small bowel loops lead to this level as well as a segment of sigmoid col on. Loops of bowel including dilated small bowel loops and fluid filled colon proximal to this locati on are dilated with fluid. Partial small bowel and colonic obstructions are likely present. Report wa s called to Dr. Alberts by Dr. Brock by telephone [phone] Hours 04/16/2020. 2. Couple of sclerotic lesions within the pelvis. Sclerotic metastasis should be considered.. 3. Complex left renal cyst
[2020-04-16] MEDS ORDERED: SODIUM CHLORIDE 0.9% 1,000 ML IV ONE (12:38)
[2020-04-16] MEDS: HYDROmorphone 0.5 MG/0.5 ML SYRINGE IVP PRN ×2 (13:47→20:22)
[2020-04-16] MEDS ORDERED: Potassium Replacement Protocol 1 EACH MISC MISCELLANE PRN (15:11)
[2020-04-16] MEDS ORDERED: ACETAMINOPHEN IV (For NPO) 1,000 MG in EMPTY BAG 1 BAG IVPB PRN (15:13)
[2020-04-16] MEDS: PANTOPRAZOLE 40 MG/10 ML VIAL IVP SCH (16:40)
[2020-04-16] MEDS: AMPICILLIN-SULBACTAM 3 GM in SODIUM CHLORIDE 0.9% 100 ML IVPB SCH ×2 (16:42→23:28)
--- NOTE | 2020-04-16 16:45 | P.GSCN ---
History of Present Illness Consult date: 04/16/20 Reason for Consult: Diverticulitis, partial small bowel obstruction History of present illness: This 70-year-old female was admitted through the emergency room with complaints of abdominal pain. Patient's CAT scan suggestive of diverticulitis. Patient's had previous history of diverticula is. She is requiring multiple courses of antibiotic. Past Medical History Past Medical History: Cancer, Chest Pain / Angina, COPD, GERD/Reflux, Hyperlipidemia, Pneumonia, Skin Disorder Additional Past Medical History / Comment(s): Diverticular disease, bowel obstructions/surgery/chronic diarrhea since, beginnings of COPD, gastritis, osteoporosis, skin cancer with removals (basal/squamous), hypokalemia, gastritis, occasional bilateral ankle edema. Last Myocardial Infarction Date:: 1994 History of Any Multi-Drug Resistant Organisms: MRSA Year Discovered:: 2010- MDRO Source:: abdomen from 2nd bowel surg Past Surgical History: Appendectomy, Bowel Resection, Cholecystectomy, Heart Catheterization, Hysterectomy, Joint Replacement, Tonsillectomy Additional Past Surgical History / Comment(s): Exporatory laparotomy, bowel resections x2/incisional hernia repair, hysterectomy then bilateral salpingoophorectomy, skin cancer removals, total R knee arthroplasty, EGD, colonoscopy, cardiac catheterizations. Past Anesthesia/Blood Transfusion Reactions: No Reported Reaction Past Psychological History: No Psychological Hx Reported Additional Psychological History / Comment(s): Pt resides with her spouse. She is independent. Smoking Status: Former smoker Past Alcohol Use History: Occasional Additional Past Alcohol Use History / Comment(s): Pt started smoking in 1962 and quit in 2003. She drinks once or twice a week but less than 7 drinks per week. Past Drug Use History: None Reported - Past Family History Father Family Medical History: Coronary Artery Disease (CAD), Diabetes Mellitus, Hyperlipidemia, Hypertension Additional Family Medical History / Comment(s): CABG Mother Family Medical History: Cancer, Hyperlipidemia, Hypertension Additional Family Medical History / Comment(s): Mother survived breast cancer. Sister(s) Family Medical History: Cancer Additional Family Medical History / Comment(s): Sister is from breast cancer. Medications and Allergies Home Medications Medication Instructions Recorded Confirmed Type Magnesium Oxide [Magox 400] 1,200 mg PO DAILY 07/16/16 04/16/20 History Potassium Chloride ER [K-Dur 10] 40 meq PO DAILY 06/11/19 04/16/20 History Spironolactone 25 mg PO DAILY 06/11/19 04/16/20 History Ergocalciferol (Vitamin D2) 50,000 unit PO Q14D 04/16/20 04/16/20 History [Drisdol] Sodium Bicarbonate Tab 650 mg PO BID 04/16/20 04/16/20 History Allergies Allergy/AdvReac Type Severity Reaction Status Date / Time No Known Allergies Allergy Verified 04/16/20 11:22 Surgical - Exam Vital Signs Temp Pulse Resp BP Pulse Ox 97.5 F L 81 16 141/62 99 04/16/20 08:49 04/16/20 08:49 04/16/20 08:49 04/16/20 08:49 04/16/20 08:49 - General well developed, well nourished, no distress - Eyes PERRL - ENT normal pinna - Neck no masses - Respiratory normal expansion - Cardiovascular Rhythm: regular - Abdomen Left lower quadrant tenderness Abdomen: soft Results - Labs 04/16/20 08:58 04/16/20 08:58 Abnormal Lab Results - Last 24 Hours (Table) 04/16/20 04/16/20 04/16/20 Range/Units 08:58 09:36 09:38 Potassium 3.4 L (3.5-5.1) mmol/L Chloride 109 H (98-107) mmol/L Carbon Dioxide 21 L (22-30) mmol/L Plasma Lactic Acid Franck 0.6 L (0.7-2.0) mmol/L Urine Appearance Cloudy H (Clear) Urine Bacteria Rare H (None) /hpf Urine Mucus Rare H (None) /hpf Diabetes panel 04/16/20 Range/Units 08:58 Sodium 137 (137-145) mmol/L Potassium 3.4 L (3.5-5.1) mmol/L Chloride 109 H (98-107) mmol/L Carbon Dioxide 21 L (22-30) mmol/L BUN 12 (7-17) mg/dL Creatinine 0.61 (0.52-1.04) mg/dL Glucose 94 (74-99) mg/dL Calcium 9.2 (8.4-10.2) mg/dL AST 24 (14-36) U/L ALT 20 (4-34) U/L Alkaline Phosphatase 92 (38-126) U/L Total Protein 6.7 (6.3-8.2) g/dL Albumin 3.9 (3.5-5.0) g/dL Calcium panel 04/16/20 Range/Units 08:58 Calcium 9.2 (8.4-10.2) mg/dL Albumin 3.9 (3.5-5.0) g/dL Pituitary panel 04/16/20 Range/Units 08:58 Sodium 137 (137-145) mmol/L Potassium 3.4 L (3.5-5.1) mmol/L Chloride 109 H (98-107) mmol/L Carbon Dioxide 21 L (22-30) mmol/L BUN 12 (7-17) mg/dL Creatinine 0.61 (0.52-1.04) mg/dL Glucose 94 (74-99) mg/dL Calcium 9.2 (8.4-10.2) mg/dL Adrenal panel 04/16/20 Range/Units 08:58 Sodium 137 (137-145) mmol/L Potassium 3.4 L (3.5-5.1) mmol/L Chloride 109 H (98-107) mmol/L Carbon Dioxide 21 L (22-30) mmol/L BUN 12 (7-17) mg/dL Creatinine 0.61 (0.52-1.04) mg/dL Glucose 94 (74-99) mg/dL Calcium 9.2 (8.4-10.2) mg/dL Total Bilirubin 0.8 (0.2-1.3) mg/dL AST 24 (14-36) U/L ALT 20 (4-34) U/L Alkaline Phosphatase 92 (38-126) U/L Total Protein 6.7 (6.3-8.2) g/dL Albumin 3.9 (3.5-5.0) g/dL - Imaging CT scan - abdomen: report reviewed (Implanted changes in the lower anterior pelvis with dilated loops of small bowel. As well as segment of colon sigmoid colon. Possible small obstruction. There is evidence of sclerotic lesion in the pelvis.) Assessment and Plan Assessment: Probable diverticulitis with partial small bowel obstruction. Patient received IV antibiotics and bowel rest. She'll be closely observed.
[2020-04-16] MEDS: ONDANSETRON 4 MG/2 ML VIAL IVP PRN (21:55)
[2020-04-17] MEDS: AMPICILLIN-SULBACTAM 3 GM in SODIUM CHLORIDE 0.9% 100 ML IVPB SCH ×3 (06:09→17:25)
[2020-04-17] MEDS: HYDROmorphone 0.5 MG/0.5 ML SYRINGE IVP PRN ×3 (06:12→17:27)
[2020-04-17 06:29] LABS: Basophils % (A) 1 %; Eosinophils # (A) 0.1 k/uL (0-0.7); Eosinophils % (A) 2 %; HCT 36.6 % (34.0-46.0); Lymphocytes % (A) 24 %; MCH 30.3 pg (25.0-35.0); MCHC 32.8 g/dL (31.0-37.0); MCV 92.3 fL (80.0-100.0); Mean Platelet Volume 6.8; Monocytes # (A) 0.4 k/uL (0-1.0); Monocytes % (A) 10 %; Neutrophils # (A) 2.5 k/uL (1.3-7.7); Neutrophils % (A) 61 %; Platelet Count 199 k/uL (150-450); RBC 3.96 m/uL (3.80-5.40); RDW 13.7 % (11.5-15.5); WBC 4.2 k/uL (3.8-10.6)
[2020-04-17] MEDS: PANTOPRAZOLE 40 MG/10 ML VIAL IVP SCH (08:11)
[2020-04-17 09:02] LABS: African American GFR (CKD) 112.9 (60.0-200.0); Anion Gap 8.1 mmol/L (4.00-12.00); Calcium 8.2 mg/dL (8.7-10.3); Carbon Dioxide 20.9 mmol/L (21.6-31.8); Non-African American GFR(CKD) 97.4 (60.0-200.0); Potassium 3.4 mmol/L (3.5-5.5)
--- NOTE | 2020-04-17 13:15 | P.HPIM ---
History of Present Illness H&P Date: 04/17/20 Chief Complaint: Abdominal pain This is a 70-year-old female with history of bowel obstructions 2 with chronic diarrhea since second bowel resection surgery, hypercholesterol, hypertension , former nicotine dependence, skin cancer, diverticulosis and multiple other medical issues, presented to the ER with ongoing left lower quadrant abdominal pain worsening over the last 2 days.Denies nausea vomiting or diarrhea. Denies any chest pain, palpitations or shortness of breath. Denies any lightheadedness, dizziness or focal deficits. Afebrile, normal WBC. Hematology unremarkable. Sodium 137 potassium 3.4, chloride 109 carbon dioxide 21 BUN 12, creatinine 0.61, lactic acid 0.6. T bili, LFTs, amylase and lipase within normal limits. UA negative. Blood cultures pending. CT of abdomen and pelvis reported inflammatory change within the lower anterior pelvis, dilated fluid-filled small bowel loops leading to this level as well as to the sigmoid colon, loose about including dilated small bowel loops in fluid- filled colon proximal to this location dilated, partial small bowel and colonic obstruction suspected, sclerotic lesions within pelvis-possible metastasis, complex left renal cyst. Review of Systems ROS Statement: Those systems with pertinent positive or pertinent negative responses have been documented in the HPI. ROS Other: All systems not noted in ROS Statement are negative. Past Medical History Past Medical History: Cancer, Chest Pain / Angina, COPD, GERD/Reflux, Hyperlipidemia, Pneumonia, Skin Disorder Additional Past Medical History / Comment(s): Diverticular disease, bowel obstructions/surgery/chronic diarrhea since, beginnings of COPD, gastritis, osteoporosis, skin cancer with removals (basal/squamous), hypokalemia, gastritis, occasional bilateral ankle edema. Last Myocardial Infarction Date:: 1994 History of Any Multi-Drug Resistant Organisms: MRSA Date of last positivie culture/infection: 2010- MDRO Source:: abdomen from 2nd bowel surg Past Surgical History: Appendectomy, Bowel Resection, Cholecystectomy, Heart Catheterization, Hysterectomy, Joint Replacement, Tonsillectomy Additional Past Surgical History / Comment(s): Exporatory laparotomy, bowel resections x2/incisional hernia repair, hysterectomy then bilateral salpingoophorectomy, skin cancer removals, total R knee arthroplasty, EGD, colonoscopy, cardiac catheterizations. Past Anesthesia/Blood Transfusion Reactions: No Reported Reaction Past Psychological History: No Psychological Hx Reported Additional Psychological History / Comment(s): Pt resides with her spouse. She is independent. Smoking Status: Former smoker Past Alcohol Use History: Occasional Additional Past Alcohol Use History / Comment(s): Pt started smoking in 2 and quit in 2003. She drinks once or twice a week but less than 7 drinks per week. Past Drug Use History: None Reported - Past Family History Father Family Medical History: Coronary Artery Disease (CAD), Diabetes Mellitus, Hyperlipidemia, Hypertension Additional Family Medical History / Comment(s): CABG Mother Family Medical History: Cancer, Hyperlipidemia, Hypertension Additional Family Medical History / Comment(s): Mother survived breast cancer. Sister(s) Family Medical History: Cancer Additional Family Medical History / Comment(s): Sister is from breast cancer. Medications and Allergies Home Medications Medication Instructions Recorded Confirmed Type Magnesium Oxide [Magox 400] 1,200 mg PO DAILY 07/16/16 04/16/20 History Potassium Chloride ER [K-Dur 10] 40 meq PO DAILY 06/11/19 04/16/20 History Spironolactone 25 mg PO DAILY 06/11/19 04/16/20 History Ergocalciferol (Vitamin D2) 50,000 unit PO Q14D 04/16/20 04/16/20 History [Drisdol] Sodium Bicarbonate Tab 650 mg PO BID 04/16/20 04/16/20 History Allergies Allergy/AdvReac Type Severity Reaction Status Date / Time No Known Allergies Allergy Verified 04/16/20 11:22 Physical Exam Vitals: Vital Signs Temp Pulse Pulse Resp BP BP Pulse Ox 04/16/20 14:15 16 04/16/20 13:59 98.1 F 68 16 126/69 96 04/16/20 13:10 98.5 F 75 18 103/48 98 04/16/20 11:59 77 18 124/54 97 04/16/20 10:56 73 18 124/56 98 04/16/20 08:49 97.5 F L 81 16 141/62 99 Intake and Output 04/15/20 04/16/20 04/16/20 22:59 06:59 14:59 Other: # Voids 1 Weight 57.606 kg PHYSICAL EXAM: VITAL SIGNS: As above GENERAL: Sitting up in bed, no acute distress HEENT: Conjunctivae normal. eyes normal. NECK: No JVD. No thyroid enlargement. No LNs CARDIOVASCULAR: S1, S2 regular. No murmur RESPIRATION: Breath sounds diminished in the bases. No rhonchi or crackles. No bronchial breathing. ABDOMEN: Soft, nondistended, left lower quadrant tenderness No guarding. no masses palpable. No ascites, No hepatosplenomegaly. Positive Bowel sounds heard. LEGS: No edema. no swelling PSYCHIATRY: Alert and oriented X3, mood and affect normal. NERVOUS SYSTEM: Cranial N 2-12 grossly normal. Moves all 4 limbs. No focal deficits. Strength and sensation grossly intact.. Skin: Warm and dry, no rash Lymphatic system. No LN neck axilla. Results CBC & Chem 7: 04/17/20 05:44 04/17/20 05:44 Labs: Abnormal Lab Results - Last 24 Hours (Table) 04/16/20 04/16/20 04/16/20 Range/Units 08:58 09:36 09:38 Potassium 3.4 L (3.5-5.1) mmol/L Chloride 109 H (98-107) mmol/L Carbon Dioxide 21 L (22-30) mmol/L Plasma Lactic Acid Franck 0.6 L (0.7-2.0) mmol/L Urine Appearance Cloudy H (Clear) Urine Bacteria Rare H (None) /hpf Urine Mucus Rare H (None) /hpf Thrombosis Risk Factor Assmnt - Choose All That Apply Any of the Below Risk Factors Present?: Yes Other Risk Factors: Yes Each Risk Factor Represents 2 Points: Age 61-74 years, Malignancy Other congenital or acquired thrombophilia - If yes, enter type in comment: No Thrombosis Risk Factor Assessment Total Risk Factor Score: 4 Thrombosis Risk Factor Assessment Level: Moderate Risk Assessment and Plan Assessment: Left quadrant abdominal pain 2 days, possible diverticulitis secondary to inflammatory changes reported on CT, partial small bowel and colonic obstruction reported per CT. Possible sclerotic metastasis within the pelvis, reported per CT Complex left renal cyst Chronic diarrhea since bowel resection. Prolonged QT, secondary to the above, does not appear to be med induced, metabolic Diverticulosis Possible celiac disease, workup in progress Mildly elevated LFTs with elevated T bili, etiology unclear, in a patient with history of cholecystectomy Hypokalemia Occasional EtOH use Prior nicotine dependence Hypertension Hyperlipidemia Plan: Continue current medication regime, monitoring and symptomatically treatment. NPO, bowel rest, IV fluid hydration. Antibiotics of Unasyn initiated. Surgery consulted. Home meds have been reviewed and resumed accordingly. Potassium replacement protocol ordered. The impression and plan of care has been dictated as directed. : I performed a history and examination of this patient, discussed the same with the dictator. I agree with the dictator's note ,documented as a scribe. Any additional findings or plans will be noted.
--- NOTE | 2020-04-17 14:17 | XR ---
EXAMINATION TYPE: XR abdomen 2V DATE OF EXAM: 04/17/2020 CLINICAL HISTORY: Abdominal pain. Possible obstruction. TECHNIQUE: Supine and upright views of the abdomen are obtained. COMPARISON: CT abdomen and pelvis April 16, 2020. FINDINGS: Air-fluid level in nondistended stomach. Paucity of bowel gas. Scattered gas with air-fluid levels in nondistended colon along the periphery. Some gas in nondistended small bowel loops in the pelvis redemonstrated. No pneumoperitoneum. Lung bases remain clear. Cholecystectomy clips. Surgical clips and sutures right lower quadrant into pelvis redemonstrated. Sclerotic focus right iliac bone a roberto the acetabulum presumed benign bone island redemonstrated. IMPRESSION: Overall nonspecific bowel gas pattern redemonstrated. Fluid filled prominent small and d ilated small bowel loops on CT less well seen on plain films to assess for interval change.
--- NOTE | 2020-04-17 14:27 | P.PN ---
Subjective Progress Note Date: 04/17/20 CHIEF COMPLAINT: Abdominal pain HISTORY OF PRESENT ILLNESS: Patient seen and examined with Dr. Suazo. Patient is complaining of abdominal pain. She did have an episode of vomiting last night. Abdominal x-ray has been ordered. White count 4.2. She is afebrile. PHYSICAL EXAM: VITAL SIGNS: Reviewed. GENERAL: Well-developed in no acute distress. HEENT: No sclera icterus. Extraocular movements grossly intact. Moist buccal mucosa. Head is atraumatic, normocephalic. ABDOMEN: Distended NEUROLOGIC: Alert and oriented. Cranial nerves II through XII grossly intact. ASSESSMENT: 1. Probable diverticulitis with partial small bowel obstruction PLAN: -Check two-view abdominal x-ray -Keep patient nothing by mouth -Continue IV antibiotics -Continue IV fluids -Continue IV pain medications as needed Physician Propulsion Motor And Generator Repairer note has been reviewed by physician. Signing provider agrees with the documented findings, assessment, and plan of care. Objective - Vital Signs Vital signs: Vital Signs Temp 97.9 F 04/17/20 13:39 Pulse 64 04/17/20 13:39 Resp 16 04/17/20 13:39 BP 109/62 04/17/20 13:39 Pulse Ox 94 L 04/17/20 13:39 Intake & Output 04/16/20 04/17/20 04/17/20 18:59 06:59 18:59 Weight 57.606 kg Other: # Voids 1 1 3 - Labs CBC & Chem 7: 04/17/20 05:44 04/17/20 05:44 Labs: Abnormal Lab Results - Last 24 Hours (Table) 04/17/20 Range/Units 05:44 Potassium 3.4 L (3.5-5.5) mmol/L Chloride 111 H (96-109) mmol/L Carbon Dioxide 20.9 L (21.6-31.8) mmol/L Creatinine 0.5 L (0.6-1.5) mg/dL Calcium 8.2 L (8.7-10.3) mg/dL Microbiology - Last 24 Hours (Table) 04/16/20 09:45 Blood Culture - Preliminary Blood No Growth after 24 hours
[2020-04-18] MEDS: AMPICILLIN-SULBACTAM 3 GM in SODIUM CHLORIDE 0.9% 100 ML IVPB SCH ×4 (00:36→17:43)
[2020-04-18] MEDS: HYDROmorphone 0.5 MG/0.5 ML SYRINGE IVP PRN ×3 (00:40→20:01)
[2020-04-18] MEDS: ONDANSETRON 4 MG/2 ML VIAL IVP PRN ×2 (02:51→08:08)
[2020-04-18 07:31] LABS: Basophils % (A) 0 %; Eosinophils # (A) 0.1 k/uL (0-0.7); Eosinophils % (A) 1 %; HCT 43.6 % (34.0-46.0); HGB 13.1 gm/dL (11.4-16.0); Hypochromasia Slight; Lymphocytes # (A) 1.1 k/uL (1.0-4.8); Lymphocytes % (A) 14 %; MCH 28.9 pg (25.0-35.0); MCHC 30.1 g/dL (31.0-37.0); Mean Platelet Volume 6.9; Monocytes # (A) 0.4 k/uL (0-1.0); Monocytes % (A) 5 %; Neutrophils # (A) 5.8 k/uL (1.3-7.7); Neutrophils % (A) 78 %; Platelet Count 239 k/uL (150-450); RBC 4.54 m/uL (3.80-5.40); RDW 13.5 % (11.5-15.5); WBC 7.4 k/uL (3.8-10.6)
[2020-04-18] MEDS: PANTOPRAZOLE 40 MG/10 ML VIAL IVP SCH (08:04)
[2020-04-18 12:34] LABS: African American GFR (CKD) 112.9 (60.0-200.0); Calcium 8.1 mg/dL (8.7-10.3); Chloride 113 mmol/L (96-109); Potassium 3.8 mmol/L (3.5-5.5); Sodium 142 mmol/L (135-145)
[2020-04-18 12:49] LABS: Carbon Dioxide <10.0 mmol/L (21.6-31.8); Glucose 48 mg/dL (70-110); Non-African American GFR(CKD) 97.4 (60.0-200.0)
--- NOTE | 2020-04-18 13:12 | P.PN ---
Subjective Progress Note Date: 04/18/20 This is a 70-year-old female with history of bowel obstructions 2 with chronic diarrhea since second bowel resection surgery, hypercholesterol, hypertension , former nicotine dependence, skin cancer, diverticulosis and multiple other medical issues, presented to the ER with ongoing left lower quadrant abdominal pain worsening over the last 2 days.Denies nausea vomiting or diarrhea. Denies any chest pain, palpitations or shortness of breath. Denies any lightheadedness, dizziness or focal deficits. Afebrile, normal WBC. Hematology unremarkable. Sodium 137 potassium 3.4, chloride 109 carbon dioxide 21 BUN 12, creatinine 0.61, lactic acid 0.6. T bili, LFTs, amylase and lipase within normal limits. UA negative. Blood cultures pending. CT of abdomen and pelvis reported inflammatory change within the lower anterior pelvis, dilated fluid-filled small bowel loops leading to this level as well as to the sigmoid colon, loose about including dilated small bowel loops in fluid- filled colon proximal to this location dilated, partial small bowel and colonic obstruction suspected, sclerotic lesions within pelvis-possible metastasis, complex left renal cyst. 04/18/2020 NPO, maintain on bowel rest and IV fluids. Abdominal x-ray completed yesterday ,reported overall nonspecific bowel gas pattern redemonstrated, fluid-filled prominent small and distal small bowel loops. Recently received Zofran, reports nausea improving, no emesis. Abdominal pain lessening, requiring Dilaudid approximately every 7 hours. Patient has chronic diarrhea of 15-20 episodes per day as a baseline, currently 2 episodes this morning. Denies chest pain, palpitations or shortness of breath. Borderline hypotension, systolic blood pressures in the 90s, hypoglycemic. Objective - Vital Signs Vital signs: Vital Signs Temp 97.4 F L 04/18/20 07:00 Pulse 74 04/18/20 07:00 Resp 16 04/18/20 07:00 BP 91/53 04/18/20 07:00 Pulse Ox 92 L 04/18/20 07:00 Intake & Output 04/17/20 04/18/20 04/18/20 18:59 06:59 18:59 Other: Voiding Method Toilet # Voids 3 2 - Exam PHYSICAL EXAM: VITAL SIGNS: As above GENERAL: Sitting up in bed, no acute distress HEENT: Conjunctivae normal. eyes normal. NECK: No JVD. No thyroid enlargement. No LNs CARDIOVASCULAR: S1, S2 regular. No murmur RESPIRATION: Breath sounds diminished in the bases. No rhonchi or crackles. No bronchial breathing. ABDOMEN: Soft, nondistended, improving left lower quadrant tenderness No guarding. no masses palpable. Positive Bowel sounds heard. LEGS: No edema. no swelling . PSYCHIATRY: Alert and oriented X3, mood and affect normal. NERVOUS SYSTEM: Cranial N 2-12 grossly normal. Moves all 4 limbs. No focal deficits. Strength and sensation grossly intact.. Skin: Warm and dry, no rash - Labs CBC & Chem 7: 04/18/20 06:36 04/18/20 06:36 Labs: Abnormal Lab Results - Last 24 Hours (Table) 04/18/20 Range/Units 06:36 MCHC 30.1 L (31.0-37.0) g/dL Microbiology - Last 24 Hours (Table) 04/16/20 09:45 Blood Culture - Preliminary Blood No Growth after 24 hours Assessment and Plan Assessment: Left quadrant abdominal pain 2 days, possible diverticulitis secondary to inflammatory changes reported on CT, partial small bowel and colonic obstruction reported per CT. Possible sclerotic metastasis within the pelvis, reported per CT Complex left renal cyst Chronic diarrhea since bowel resection. Prolonged QT, secondary to the above, does not appear to be med induced, metabolic Diverticulosis Possible celiac disease, workup in progress Mildly elevated LFTs with elevated T bili, etiology unclear, in a patient with history of cholecystectomy Hypokalemia Occasional EtOH use Prior nicotine dependence Hypertension Hyperlipidemia Plan: Continue current medication regime, monitoring and symptomatically treatment. Maintain bowel rest, IV fluid hydration. IV fluids adjusted to D5/0.9 normal saline secondary to hypoglycemia. Close monitoring of blood sugars with Accu-Cheks ordered. Continue antibiotics. Surgery consult changed to Dr. Sotelo as recommended by PCP, Dr. Brennan, per his discussion with patient / patient's request. Diet advancement as per surgery. The impression and plan of care has been dictated as directed. : I performed a history and examination of this patient, discussed the same with the dictator. I agree with the dictator's note ,documented as a scribe. Any additional findings or plans will be noted.
[2020-04-18] MEDS: DEXTROSE 5%-0.9% NACL 1,000 ML IV SCH (13:29)
--- NOTE | 2020-04-18 13:39 | P.PN ---
Subjective Progress Note Date: 04/18/20 CHIEF COMPLAINT: Abdominal pain HISTORY OF PRESENT ILLNESS: Patient seen and examined with Dr. Suazo. Patient does report a decrease in her abdominal pain. Patient has reported some improvement in her nausea. She did have a bowel movement. Denies any vomiting. Abdominal x-ray showing overall nonspecific bowel gas pattern redemonstrated. Fluid-filled prominent small and dilated small bowel loops on CT less well seen on plain films. She is afebrile. WBC 7.4. And she is currently nothing by mouth. PHYSICAL EXAM: VITAL SIGNS: Reviewed. GENERAL: Well-developed in no acute distress. HEENT: No sclera icterus. Extraocular movements grossly intact. Moist buccal mucosa. Head is atraumatic, normocephalic. ABDOMEN: Distended NEUROLOGIC: Alert and oriented. Cranial nerves II through XII grossly intact. ASSESSMENT: 1. Probable diverticulitis with partial small bowel obstruction PLAN: -Advance diet to a clear liquid diet and -Continue IV antibiotics -Continue IV fluids -Continue IV pain medications as needed Physician Central Service Tech note has been reviewed by physician. Signing provider agrees with the documented findings, assessment, and plan of care. Objective - Vital Signs Vital signs: Vital Signs Temp 97.4 F L 04/18/20 07:00 Pulse 74 04/18/20 07:00 Resp 16 04/18/20 07:00 BP 91/53 04/18/20 07:00 Pulse Ox 92 L 04/18/20 07:00 Intake & Output 04/17/20 04/18/20 04/18/20 18:59 06:59 18:59 Other: Voiding Method Toilet # Voids 3 2 - Labs CBC & Chem 7: 04/18/20 06:36 04/18/20 06:36 Labs: Abnormal Lab Results - Last 24 Hours (Table) 04/18/20 04/18/20 Range/Units 06:36 06:36 MCHC 30.1 L (31.0-37.0) g/dL Chloride 113 H (96-109) mmol/L Carbon Dioxide <10.0 L* (21.6-31.8) mmol/L Creatinine 0.5 L (0.6-1.5) mg/dL BUN/Creatinine Ratio 30.00 H (12.00-20.00) Ratio Glucose 48 L* (70-110) mg/dL Calcium 8.1 L (8.7-10.3) mg/dL Microbiology - Last 24 Hours (Table) 04/16/20 09:45 Blood Culture - Preliminary Blood No Growth after 48 hours
[2020-04-18 17:13] LABS: Glucose,Whole Blood 131 mg/dL (75-99)
[2020-04-18] MEDS: INSULIN ASPART (NovoLOG) 100 UNIT/ML VIAL SQ SCH (17:39)
[2020-04-18 20:41] LABS: Glucose,Whole Blood 134 mg/dL (75-99)
[2020-04-19] MEDS: INSULIN ASPART (NovoLOG) 100 UNIT/ML VIAL SQ SCH ×5 (01:10→20:26)
[2020-04-19] MEDS: AMPICILLIN-SULBACTAM 3 GM in SODIUM CHLORIDE 0.9% 100 ML IVPB SCH ×5 (01:32→23:11)
[2020-04-19] MEDS: HYDROmorphone 0.5 MG/0.5 ML SYRINGE IVP PRN ×2 (01:36→18:53)
[2020-04-19] MEDS: DEXTROSE 5%-0.9% NACL 1,000 ML IV SCH ×2 (04:11→17:18)
[2020-04-19 06:42] LABS: Basophils % (A) 0 %; Eosinophils # (A) 0.2 k/uL (0-0.7); Eosinophils % (A) 4 %; HCT 35.4 % (34.0-46.0); HGB 11.3 gm/dL (11.4-16.0); Lymphocytes % (A) 17 %; MCH 29.3 pg (25.0-35.0); MCV 91.5 fL (80.0-100.0); Mean Platelet Volume 6.7; Monocytes # (A) 0.4 k/uL (0-1.0); Monocytes % (A) 7 %; Neutrophils # (A) 4.1 k/uL (1.3-7.7); Neutrophils % (A) 70 %; Platelet Count 230 k/uL (150-450); RBC 3.87 m/uL (3.80-5.40); RDW 13.5 % (11.5-15.5); WBC 5.8 k/uL (3.8-10.6)
[2020-04-19 07:24] LABS: African American GFR (CKD) >90 (>60 ml/min/1.73 sqM); Anion Gap 3 mmol/L; Blood Urea Nitrogen 10 mg/dL (7-17); Carbon Dioxide 20 mmol/L (22-30); Chloride 116 mmol/L (98-107); Glucose 92 mg/dL (74-99); Non-African American GFR(CKD) >90 (>60 ml/min/1.73 sqM); Potassium 2.9 mmol/L (3.5-5.1); Sodium 139 mmol/L (137-145)
[2020-04-19 07:25] LABS: Glucose,Whole Blood 85 mg/dL (75-99)
[2020-04-19] MEDS: PANTOPRAZOLE 40 MG/10 ML VIAL IVP SCH (08:01)
--- NOTE | 2020-04-19 10:50 | P.PN ---
Subjective Progress Note Date: 04/19/20 Principal diagnosis: Diverticulitis Patient doing fairly well today. Says her pain is gradually improving although still present in the suprapubic location. Tolerating clears she is having bowel activity. Objective - Vital Signs Vital signs: Vital Signs Temp 96.8 F L 04/19/20 01:28 Pulse 59 L 04/19/20 07:00 Resp 20 04/19/20 07:00 BP 111/52 04/19/20 07:00 Pulse Ox 97 04/19/20 07:00 Intake & Output 04/18/20 04/19/20 04/19/20 18:59 06:59 18:59 Other: Voiding Method Toilet # Voids 1 - Exam Abdomen: Soft, nondistended, suprapubic tenderness with some fullness - Labs CBC & Chem 7: 04/19/20 06:05 04/19/20 06:05 Labs: Abnormal Lab Results - Last 24 Hours (Table) 04/18/20 04/18/20 04/18/20 Range/Units 06:36 17:09 20:40 Hgb (11.4-16.0) gm/dL Potassium (3.5-5.1) mmol/L Chloride 113 H (96-109) mmol/L Carbon Dioxide <10.0 L* (21.6-31.8) mmol/L Creatinine 0.5 L (0.6-1.5) mg/dL BUN/Creatinine Ratio 30.00 H (12.00-20.00) Ratio Glucose 48 L* (70-110) mg/dL POC Glucose (mg/dL) 131 H 134 H (75-99) mg/dL Calcium 8.1 L (8.7-10.3) mg/dL 04/19/20 04/19/20 Range/Units 06:05 06:05 Hgb 11.3 L (11.4-16.0) gm/dL Potassium 2.9 L (3.5-5.1) mmol/L Chloride 116 H (96-109) mmol/L Carbon Dioxide 20 L (21.6-31.8) mmol/L Creatinine (0.6-1.5) mg/dL BUN/Creatinine Ratio (12.00-20.00) Ratio Glucose (70-110) mg/dL POC Glucose (mg/dL) (75-99) mg/dL Calcium 8.0 L (8.7-10.3) mg/dL Microbiology - Last 24 Hours (Table) 04/16/20 09:45 Blood Culture - Preliminary Blood No Growth after 48 hours Assessment and Plan (1) Diverticulitis Narrative/Plan: 70-year-old female with diverticulitis. Continue advancing diet slowly. Monitor white blood cell count. Continue antibiotics. I had a long discussion with the patient regarding appropriate care. Patient apparently is requesting not to see Dr. Suazo for any surgical intervention. Because we cross cover one another so frequently I suggested that she may benefit from consultation with Dr. castillo or his group. This was discussed with Dr. Brennan as well. If patient is being discharge in the next 24-48 hours and follow-up with them post discharge. If she is going to stay longer may switch to their service. Current Visit: Yes Status: Acute Code(s): K57.92 - DVTRCLI OF INTEST, PART UNSP, W/O PERF OR ABSCESS W/O BLEED SNOMED Code(s): 767948291
--- NOTE | 2020-04-19 11:55 | P.PN ---
Subjective Progress Note Date: 04/19/20 Principal diagnosis: abdominal pain patient's awake alert oriented 3 Vital signs stable patient's afebrile Patient complains of mild diffuse abdominal tenderness tolerating clear liquids well Objective - Vital Signs Vital signs: Vital Signs Temp 96.8 F L 04/19/20 01:28 Pulse 59 L 04/19/20 07:00 Resp 20 04/19/20 07:00 BP 111/52 04/19/20 07:00 Pulse Ox 97 04/19/20 07:00 Intake & Output 04/18/20 04/19/20 04/19/20 18:59 06:59 18:59 Other: Voiding Method Toilet # Voids 1 - Exam General: [Patient awake, alert and oriented times 3. Patient in no acute distress.] HEENT: [PERRL. EOMI. No pharyngeal erythema or exudate.] Neck: [No adenopathy.] Cardiac: [Heart regular in rate and rhythm. No S3. No S4. No clicks, rubs. No murmur.] Lungs: [Clear to auscultation bilaterally.] Abdomen: [No mass. firm mild diffuse tenderness No organomegaly. Bowel sounds presnt,hypoactive in all 4 quadrants.] Extremes: [No edema no cyanosis no claudication normal pulses] : normal female genitalia Musculoskeletal: [No joint erythema, edema or tenderness.] Skin: [No rash.] Neurologic: [No lateralizing deficits. CN II - XII grossly intact.] Lymphatic: [No adenopathy.] - Labs CBC & Chem 7: 04/19/20 06:05 04/19/20 06:05 Labs: Abnormal Lab Results - Last 24 Hours (Table) 04/18/20 04/18/20 04/18/20 Range/Units 06:36 17:09 20:40 Hgb (11.4-16.0) gm/dL Potassium (3.5-5.1) mmol/L Chloride 113 H (96-109) mmol/L Carbon Dioxide <10.0 L* (21.6-31.8) mmol/L Creatinine 0.5 L (0.6-1.5) mg/dL BUN/Creatinine Ratio 30.00 H (12.00-20.00) Ratio Glucose 48 L* (70-110) mg/dL POC Glucose (mg/dL) 131 H 134 H (75-99) mg/dL Calcium 8.1 L (8.7-10.3) mg/dL 04/19/20 04/19/20 Range/Units 06:05 06:05 Hgb 11.3 L (11.4-16.0) gm/dL Potassium 2.9 L (3.5-5.1) mmol/L Chloride 116 H (96-109) mmol/L Carbon Dioxide 20 L (21.6-31.8) mmol/L Creatinine (0.6-1.5) mg/dL BUN/Creatinine Ratio (12.00-20.00) Ratio Glucose (70-110) mg/dL POC Glucose (mg/dL) (75-99) mg/dL Calcium 8.0 L (8.7-10.3) mg/dL Microbiology - Last 24 Hours (Table) 04/16/20 09:45 Blood Culture - Preliminary Blood No Growth after 48 hours Assessment and Plan (1) Diverticulitis Current Visit: Yes Status: Acute Code(s): K57.92 - DVTRCLI OF INTEST, PART UNSP, W/O PERF OR ABSCESS W/O BLEED SNOMED Code(s): 444208139 (2) Partial small bowel obstruction Current Visit: Yes Status: Acute Code(s): K56.600 - PARTIAL INTESTINAL O BSTRUCTION, UNSPECIFIED TO CAUSE SNOMED Code(s): 316732880 (3) Diarrhea Current Visit: No Status: Acute Code(s): R19.7 - DIARRHEA, UNSPECIFIED SNOMED Code(s): 35284867 (4) Generalized weakness Current Visit: No Status: Acute Code(s): R53.1 - WEAKNESS SNOMED Code(s): 04449594 (5) Ileus Current Visit: No Status: Acute Code(s): K56.7 - ILEUS, UNSPECIFIED SNOMED Code(s): 909978414 (6) Nausea Current Visit: No Status: Acute Code(s): R11.0 - NAUSEA SNOMED Code(s): 607587998 Plan: patient has been at bowel rest Clear liquids started yesterday tolerating well Moving bowels, and has never stopped Would consider advancing diet as tolerated continue conservative care We'll consider re-imaging patient We will micro[employer] exchange administrator due to patient preference Consult Dr. Denver Damon. surgery Time with Patient: Greater than 30
[2020-04-19 12:04] LABS: Glucose,Whole Blood 94 mg/dL (75-99)
[2020-04-19] MEDS ORDERED: ERGOCALCIFEROL 50,000 UNIT CAP PO SCH (13:00)
[2020-04-19 16:44] LABS: Glucose,Whole Blood 105 mg/dL (75-99)
[2020-04-19 20:17] LABS: Glucose,Whole Blood 100 mg/dL (75-99)
[2020-04-19] MEDS: SODIUM BICARBONATE TAB 650 MG TAB PO SCH (20:27)
[2020-04-20] MEDS: POTASSIUM CHLORIDE 20 MEQ in WATER FOR INJECTION 1 100ML.BAG IVPB SCH ×4 (01:53→08:28)
[2020-04-20] MEDS: POTASSIUM CHLORIDE ER 20 MEQ TAB.ER PO SCH ×4 (01:53→08:48)
[2020-04-20] MEDS: HYDROmorphone 0.5 MG/0.5 ML SYRINGE IVP PRN ×4 (02:03→20:58)
[2020-04-20] MEDS: DEXTROSE 5%-0.9% NACL 1,000 ML IV SCH ×2 (04:02→16:58)
[2020-04-20] MEDS: AMPICILLIN-SULBACTAM 3 GM in SODIUM CHLORIDE 0.9% 100 ML IVPB SCH ×4 (06:01→23:04)
[2020-04-20 06:53] LABS: Glucose,Whole Blood 90 mg/dL (75-99)
[2020-04-20 08:15] LABS: African American GFR (CKD) >90 (>60 ml/min/1.73 sqM); Anion Gap 9 mmol/L; Blood Urea Nitrogen 5 mg/dL (7-17); Calcium 8.8 mg/dL (8.4-10.2); Carbon Dioxide 20 mmol/L (22-30); Chloride 112 mmol/L (98-107); Glucose 95 mg/dL (74-99); Non-African American GFR(CKD) >90 (>60 ml/min/1.73 sqM); Potassium 3.6 mmol/L (3.5-5.1); Sodium 141 mmol/L (137-145)
[2020-04-20] MEDS: INSULIN ASPART (NovoLOG) 100 UNIT/ML VIAL SQ SCH ×4 (08:28→20:36)
[2020-04-20] MEDS: PANTOPRAZOLE 40 MG/10 ML VIAL IVP SCH (08:48)
[2020-04-20] MEDS: MAGNESIUM OXIDE 400 MG TAB PO SCH (08:48)
[2020-04-20] MEDS: SODIUM BICARBONATE TAB 650 MG TAB PO SCH ×2 (08:48→20:58)
[2020-04-20] MEDS: SPIRONOLACTONE 25 MG TAB PO SCH (08:48)
--- NOTE | 2020-04-20 10:10 | P.GSCN ---
History of Present Illness Consult date: 04/20/20 History of present illness: 70 year old female who presented with LLQ and suprapubic abdominal pain. Patient has a history of diverticulitis and multiple colon and small bowel resections in the past. Her last abdominal surgery was in 2009. She states she has 10-15 BM per day always liquid. She began having LLQ abdominal pain 3 days ago and states it feels similar to previous diverticulitis episodes she has had. Her last colonoscopy she states was 3 years ago. She currently is feeling better today. Minimal abdominal pain, tolerating fulls. Past Medical History Past Medical History: Cancer, Chest Pain / Angina, COPD, GERD/Reflux, Hyperlipidemia, Pneumonia, Skin Disorder Additional Past Medical History / Comment(s): Diverticular disease, bowel obstructions/surgery/chronic diarrhea since, beginnings of COPD, gastritis, osteoporosis, skin cancer with removals (basal/squamous), hypokalemia, gastri tis, occasional bilateral ankle edema. Last Myocardial Infarction Date:: 1994 History of Any Multi-Drug Resistant Organisms: MRSA Year Discovered:: 2010- MDRO Source:: abdomen from 2nd bowel surg Past Surgical History: Appendectomy, Bowel Resection, Cholecystectomy, Heart Ca theterization, Hysterectomy, Joint Replacement, Tonsillectomy Additional Past Surgical History / Comment(s): Exporatory laparotomy, bowel resections x2/incisional hernia repair, hysterectomy then bilateral salpingoophorectomy, skin cancer removals, total R knee arthroplasty, EGD, colonoscopy, cardiac catheterizations. Past Anesthesia/Blood Transfusion Reactions: No Reported Reaction Past Psychological History: No Psychological Hx Reported Additional Psychological History / Comment(s): Pt resides with her spouse. She is independent. Smoking Status: Former smoker Past Alcohol Use History: Occasional Additional Past Alcohol Use History / Comment(s): Pt started smoking in 1962 and quit in 2003. She drinks once or twice a week but less than 7 drinks per week. Past Drug Use History: None Reported - Past Family History Father Family Medical History: Coronary Artery Disease (CAD), Diabetes Mellitus, Hyperlipidemia, Hypertension Additional Family Medical History / Comment(s): CABG Mother Family Medical History: Cancer, Hyperlipidemia, Hypertension Additional Family Medical History / Comment(s): Mother survived breast cancer. Sister(s) Family Medical History: Cancer Additional Family Medical History / Comment(s): Sister is from breast cancer. Medications and Allergies Home Medications Medication Instructions Recorded Confirmed Type Magnesium Oxide [Magox 400] 1,200 mg PO DAILY 07/16/16 04/16/20 History Potassium Chloride ER [K-Dur 10] 40 meq PO DAILY 06/11/19 04/16/20 History Spironolactone 25 mg PO DAILY 06/11/19 04/16/20 History Ergocalciferol (Vitamin D2) 50,000 unit PO Q14D 04/16/20 04/16/20 History [Drisdol] Sodium Bicarbonate Tab 650 mg PO BID 04/16/20 04/16/20 History Allergies Allergy/AdvReac Type Severity Reaction Status Date / Time No Known Allergies Allergy Verified 04/16/20 11:22 Surgical - Exam Osteopathic Statement: *. No significant issues noted on an osteopathic structural exam other than those noted in the History and Physical/Consult. Vital Signs Temp Pulse Resp BP Pulse Ox 97.5 F L 81 16 141/62 99 04/16/20 08:49 04/16/20 08:49 04/16/20 08:49 04/16/20 08:49 04/16/20 08:49 - General well developed, well nourished, no distress - Neck trachea midline - Respiratory normal expansion, normal respiratory effort - Abdomen non distended, mild TTP LLQ no RRG Abdomen: soft - Neurologic normal coordination, normal sensation - Psychiatric oriented to time, oriented to person, oriented to place Results - Labs 04/19/20 06:05 04/20/20 07:50 Abnormal Lab Results - Last 24 Hours (Table) 04/19/20 04/19/20 04/20/20 Range/Units 16:37 20:15 00:12 Potassium 2.4 L* (3.5-5.1) mmol/L Chloride (98-107) mmol/L Carbon Dioxide (22-30) mmol/L BUN (7-17) mg/dL Creatinine (0.52-1.04) mg/dL POC Glucose (mg/dL) 105 H 100 H (75-99) mg/dL 04/20/20 Range/Units 07:50 Potassium (3.5-5.1) mmol/L Chloride 112 H (98-107) mmol/L Carbon Dioxide 20 L (22-30) mmol/L BUN 5 L (7-17) mg/dL Creatinine 0.50 L (0.52-1.04) mg/dL POC Glucose (mg/dL) (75-99) mg/dL Microbiology - Last 24 Hours (Table) 04/16/20 09:45 Blood Culture - Preliminary Blood No Growth after 72 hours Diabetes panel 04/20/20 04/20/20 Range/Units 00:12 07:50 Sodium 141 (137-145) mmol/L Potassium 2.4 L* 3.6 (3.5-5.1) mmol/L Chloride 112 H (98-107) mmol/L Carbon Dioxide 20 L (22-30) mmol/L BUN 5 L (7-17) mg/dL Creatinine 0.50 L (0.52-1.04) mg/dL Glucose 95 (74-99) mg/dL Calcium 8.8 (8.4-10.2) mg/dL Calcium panel 04/20/20 Range/Units 07:50 Calcium 8.8 (8.4-10.2) mg/dL Pituitary panel 04/20/20 04/20/20 Range/Units 00:12 07:50 Sodium 141 (137-145) mmol/L Potassium 2.4 L* 3.6 (3.5-5.1) mmol/L Chloride 112 H (98-107) mmol/L Carbon Dioxide 20 L (22-30) mmol/L BUN 5 L (7-17) mg/dL Creatinine 0.50 L (0.52-1.04) mg/dL Glucose 95 (74-99) mg/dL Calcium 8.8 (8.4-10.2) mg/dL Adrenal panel 04/20/20 04/20/20 Range/Units 00:12 07:50 Sodium 141 (137-145) mmol/L Potassium 2.4 L* 3.6 (3.5-5.1) mmol/L Chloride 112 H (98-107) mmol/L Carbon Dioxide 20 L (22-30) mmol/L BUN 5 L (7-17) mg/dL Creatinine 0.50 L (0.52-1.04) mg/dL Glucose 95 (74-99) mg/dL Calcium 8.8 (8.4-10.2) mg/dL Assessment and Plan Assessment: Diverticulitis Adhesive disease from previous abdominal surgery Plan: Patient is tolerating diet, having BM. Her pain is improved today however still having slight lower abdominal pain. No leukocytosis present. Patient stable from surgical standpoint and will likely be stable for DC today with abx or tomorrow when tolerating soft diet. I would be happy to see her as an outpatient for further followup regarding her concerns with frequent BM.
--- NOTE | 2020-04-20 10:54 | P.PN ---
Progress Note - Text Progress Note Date: 04/20/20 Patient was seen this morning. Still having lower abdominal pain and pressure. Liquid stools present. She is afebrile. Potassium 3.6. Her case was discussed with Dr. Brennan yesterday afternoon. He was going to notify me of his plans. Apparently he did consult Dr. castillo to evaluate. I did see him today in the hospital and he informed me of such. I did discuss her case with him at that time. At this time I will sign off.
--- NOTE | 2020-04-20 11:20 | P.PN ---
Subjective Progress Note Date: 04/20/20 Principal diagnosis: abdominal pain patient's awake alert oriented 3 Vital signs stable patient's afebrile Patient complains of mild diffuse abdominal tenderness tolerating clear liquids well Patient up,m wishes to ambulate Objective - Vital Signs Vital signs: Vital Signs Temp 97.5 F L 04/20/20 08:56 Pulse 76 04/20/20 08:56 Resp 16 04/20/20 08:56 BP 109/56 04/20/20 08:56 Pulse Ox 97 04/20/20 08:56 Intake & Output 04/19/20 04/20/20 04/20/20 18:59 06:59 18:59 Intake Total 200 Balance 200 Intake: Oral 200 Other: Voiding Method Toilet Toilet # Voids 2 3 - Exam General: [Patient awake, alert and oriented times 3. Patient in no acute distress.] HEENT: [PERRL. EOMI. No pharyngeal erythema or exudate.] Neck: [No adenopathy.] Cardiac: [Heart regular in rate and rhythm. No S3. No S4. No clicks, rubs. No murmur.] Lungs: [Clear to auscultation bilaterally.] Abdomen: [No mass. firm mild diffuse tenderness No organomegaly. Bowel sounds presnt,hypoactive in all 4 quadrants.] Extremes: [No edema no cyanosis no claudication normal pulses] : normal female genitalia Musculoskeletal: [No joint erythema, edema or tenderness.] Skin: [No rash.] Neurologic: [No lateralizing deficits. CN II - XII grossly intact.] Lymphatic: [No adenopathy.] - Labs CBC & Chem 7: 04/19/20 06:05 04/20/20 07:50 Labs: Abnormal Lab Results - Last 24 Hours (Table) 04/19/20 04/19/20 04/20/20 Range/Units 16:37 20:15 00:12 Potassium 2.4 L* (3.5-5.1) mmol/L Chloride (98-107) mmol/L Carbon Dioxide (22-30) mmol/L BUN (7-17) mg/dL Creatinine (0.52-1.04) mg/dL POC Glucose (mg/dL) 105 H 100 H (75-99) mg/dL 04/20/20 Range/Units 07:50 Potassium (3.5-5.1) mmol/L Chloride 112 H (98-107) mmol/L Carbon Dioxide 20 L (22-30) mmol/L BUN 5 L (7-17) mg/dL Creatinine 0.50 L (0.52-1.04) mg/dL POC Glucose (mg/dL) (75-99) mg/dL Microbiology - Last 24 Hours (Table) 04/16/20 09:45 Blood Culture - Preliminary Blood No Growth after 72 hours Assessment and Plan (1) Diverticulitis Current Visit: Yes Status: Acute Code(s): K57.92 - DVTRCLI OF INTEST, PART UNSP, W/O PERF OR ABSCESS W/O BLEED SNOMED Code(s): 812023284 (2) Partial small bowel obstruction Current Visit: Yes Status: Acute Code(s): K56.600 - PARTIAL INTESTINAL OBSTRUCTION, UNSPECIFIED TO CAUSE SNOMED Code(s): 393221358 (3) Diarrhea Current Visit: No Status: Acute Code(s): R19.7 - DIARRHEA, UNSPECIFIED SNOMED Code(s): 46290139 (4) Generalized weakness Current Visit: No Status: Acute Code(s): R53.1 - WEAKNESS SNOMED Code(s): 38046766 (5) Ileus Current Visit: No Status: Acute Code(s): K56.7 - ILEUS, UNSPECIFIED SNOMED Code(s): 115309996 (6) Nausea Current Visit: No Status: Acute Code(s): R11.0 - NAUSEA SNOMED Code(s): 42 5211794 Plan: patient has been at bowel rest Clear liquids started yesterday tolerating well Moving bowels, and has never stopped Would consider advancing diet as tolerated continue conservative care We'll CT abdomen today Will have physical therapy get patient up and ambulating Anticipate discharge home later today or tomorrow Consult Dr. Denver Damon. surgery Time with Patient: Greater than 30
[2020-04-20] MEDS: IOPAMIDOL CONTRAST (ORAL USE) VIAL PO PRN ×2 (11:43→12:51)
[2020-04-20 11:46] LABS: Glucose,Whole Blood 94 mg/dL (75-99)
[2020-04-20 14:09] LABS: Basophils % (A) 0 %; Eosinophils # (A) 0.2 k/uL (0-0.7); Eosinophils % (A) 2 %; HCT 38.6 % (34.0-46.0); HGB 13.5 gm/dL (11.4-16.0); Lymphocytes # (A) 1.2 k/uL (1.0-4.8); Lymphocytes % (A) 14 %; MCH 31.4 pg (25.0-35.0); MCHC 34.8 g/dL (31.0-37.0); MCV 90.2 fL (80.0-100.0); Mean Platelet Volume 8.6; Monocytes # (A) 0.9 k/uL (0-1.0); Monocytes % (A) 11 %; Neutrophils % (A) 71 %; Platelet Count 307 k/uL (150-450); RBC 4.28 m/uL (3.80-5.40); RDW 14.1 % (11.5-15.5); WBC 8.4 k/uL (3.8-10.6)
[2020-04-20 16:41] LABS: Glucose,Whole Blood 107 mg/dL (75-99)
--- NOTE | 2020-04-20 16:45 | CT ---
EXAMINATION TYPE: CT abdomen pelvis w con DATE OF EXAM: 04/20/2020 COMPARISON: 04/16/2020 HISTORY: Abdominal pain, diverticulitis, SBO CT DLP: 838.7 mGycm Automated exposure control for dose reduction was used. CONTRAST: Performed with IV Contrast, patient injected with 100 mL of Isovue 300. Images obtained from the diaphragm to the floor the pelvis with oral and IV contrast. There is bilateral small pleural effusions with basilar atelectasis. There is no pericardial effusion . There are clips from cholecystectomy. Liver shows no focal defect. Spleen is intact. Stomach is intac t. There is no evidence of pancreatic mass. There is no adrenal mass. Kidneys have normal size. There is no hydronephrosis. There is atypical 2 x 1 cm cortical cyst lateral left kidney. Ureters are not dilated. Delayed images show normal renal ex cretion. Abdominal aorta is atheromatous. There is no retroperitoneal adenopathy. Bladder distends smoothly. There is no inguinal hernia. There are multiple surgical clips in the abdo men. There are some mildly dilated small bowel loops in the left abdomen that measure up to 3.5 cm. T here is fluid in the right colon. There is some adhesions of the small bowel mesentery in the lower a bdomen with radiating density and apparent extraluminal air in the lower anterior abdomen. This is be st seen on coronal image 62. There is also some adjacent tethering of the dome of the urinary bladder. The lumbar vertebra have normal alignment. Disc spaces are fairly normal. Posterior elements are inta ct. Bony pelvis appears intact. IMPRESSION: There is evidence of partial mechanical small bowel obstruction with extensive inflammatory changes a nd radiating density and adhesions in the lower anterior abdomen with extraluminal air appears unchan ged compared to recent exam. This could be a desmoplastic type of tumor. No discrete fluid collection seen to suggest an abscess. There is new bilateral pleural effusions and basilar atelectasis compared to recent exam.
[2020-04-20 19:56] VITALS: RESP 16
[2020-04-20 20:26] LABS: Glucose,Whole Blood 113 mg/dL (75-99)
[2020-04-20] MEDS: ONDANSETRON 4 MG/2 ML VIAL IVP PRN (21:12)
[2020-04-21] MEDS: AMPICILLIN-SULBACTAM 3 GM in SODIUM CHLORIDE 0.9% 100 ML IVPB SCH ×2 (05:08→12:05)
[2020-04-21 07:26] LABS: Glucose,Whole Blood 91 mg/dL (75-99)
[2020-04-21] MEDS: INSULIN ASPART (NovoLOG) 100 UNIT/ML VIAL SQ SCH ×2 (07:29→12:02)
[2020-04-21 08:04] VITALS: BP 102/58; PULSE 60; TEMP 98
[2020-04-21] MEDS: MAGNESIUM OXIDE 400 MG TAB PO SCH (08:24)
[2020-04-21] MEDS: DEXTROSE 5%-0.9% NACL 1,000 ML IV SCH (08:24)
[2020-04-21] MEDS: PANTOPRAZOLE 40 MG/10 ML VIAL IVP SCH (08:24)
[2020-04-21] MEDS: SPIRONOLACTONE 25 MG TAB PO SCH (08:25)
[2020-04-21] MEDS: POTASSIUM CHLORIDE ER 20 MEQ TAB.ER PO SCH (08:25)
[2020-04-21] MEDS: SODIUM BICARBONATE TAB 650 MG TAB PO SCH (08:25)
--- NOTE | 2020-04-21 11:30 | P.PN ---
Subjective Progress Note Date: 04/21/20 This is a 70-year-old female with history of bowel obstructions 2 with chronic diarrhea since second bowel resection surgery, hypercholesterol, hypertension , former nicotine dependence, skin cancer, diverticulosis and multiple other medical issues, presented to the ER with ongoing left lower quadrant abdominal pain worsening over the last 2 days.Denies nausea vomiting or diarrhea. Denies any chest pain, palpitations or shortness of breath. Denies any lightheadedness, dizziness or focal deficits. Afebrile, normal WBC. Hematology unremarkable. Sodium 137 potassium 3.4, chloride 109 carbon dioxide 21 BUN 12, creatinine 0.61, lactic acid 0.6. T bili, LFTs, amylase and lipase within normal limits. UA negative. Blood cultures pending. CT of abdomen and pelvis reported inflammatory change within the lower anterior pelvis, dilated fluid-filled small bowel loops leading to this level as well as to the sigmoid colon, loose about including dilated small bowel loops in fluid- filled colon proximal to this location dilated, partial small bowel and colonic obstruction suspected, sclerotic lesions within pelvis-possible metastasis, complex left renal cyst. 04/18/2020 NPO, maintain on bowel rest and IV fluids. Abdominal x-ray completed yesterday ,reported overall nonspecific bowel gas pattern redemonstrated, fluid-filled prominent small and distal small bowel loops. Recently received Zofran, reports nausea improving, no emesis. Abdominal pain lessening, requiring Dilaudid approximately every 7 hours. Patient has chronic diarrhea of 15-20 episodes per day as a baseline, currently 2 episodes this morning. Denies chest pain, palpitations or shortness of breath. Borderline hypotension, systolic blood pressures in the 90s, hypoglycemic. 04/21/2020 tolerating low fiber diet, consuming 50-75%. nausea subsided, last episode during the night. Denies abdominal pain. Chronic diarrhea ,less compared to baseline.Evaluated by surgery with recommendations noted and appreciated. CT of abdomen and pelvis completed yesterday, reporting evidence of partial mechanical small bowel obstruction with extensive inflammatory changes in radiating density and adhesions of the lower anterior abdomen with extraluminal air, appears unchanged, possible desmoplastic type of tumor, no dis crete fluid collection to suggest abscess, new bilateral pleural effusions and bibasilar atelectasis. Afebrile. Maintained O2 sats in the high 90s on room air. Objective - Vital Signs Vital signs: Vital Signs Temp 98.0 F 04/21/20 07:00 Pulse 60 04/21/20 07:00 Resp 16 04/21/20 07:00 BP 102/58 04/21/20 07:00 Pulse Ox 98 04/21/20 07:00 Intake & Output 04/20/20 04/21/20 04/21/20 18:59 06:59 18:59 Intake Total 600 220 Balance 600 220 Intake: Intake, IV Titration 600 Amount Dextrose 5%-0.9% NaCl 1, 600 000 ml @ 75 mls/hr IV . [id number] [id number] Rx#:[id number] Oral 220 Other: Voiding Method Toilet # Voids 2 3 - Exam PHYSICAL EXAM: VITAL SIGNS: As above GENERAL: Sitting up in bed, no acute distress HEENT: Conjunctivae normal. eyes normal. NECK: No JVD. No thyroid enlargement. No LNs CARDIOVASCULAR: S1, S2 regular. No murmur RESPIRATION: Breath sounds diminished in the bases. No rhonchi or crackles. No bronchial breathing. ABDOMEN: nondistended, mild diffuse tenderness No guarding. no masses palpable. Positive Bowel sounds. LEGS: No edema. no swelling. PSYCHIATRY: Alert and oriented X3, mood and affect normal. NERVOUS SYSTEM: Cranial N 2-12 grossly normal. Moves all 4 limbs. No focal de ficits. Strength and sensation grossly intact.. Skin: Warm and dry, no rash - Labs CBC & Chem 7: 04/20/20 12:18 04/20/20 07:50 Labs: Abnormal Lab Results - Last 24 Hours (Table) 04/20/20 04/20/20 Range/Units 16:39 20:25 POC Glucose (mg/dL) 107 H 113 H (75-99) mg/dL Microbiology - Last 24 Hours (Table) 04/16/20 09:45 Blood Culture - Preliminary Blood No Growth after 96 hours Assessment and Plan Assessment: Left quadrant abdominal pain 2 days, possible diverticulitis secondary to inflammatory changes reported on CT, partial small bowel and colonic obstruction reported per CT. Possible sclerotic metastasis within the pelvis, possible desmoplastic type tumor, reported per CT, surgery following. Bilateral pleural effusions Bilateral atelectasis Complex left renal cyst Chronic diarrhea since bowel resection. Prolonged QT, secondary to the above, does not appear to be med induced, metabolic Diverticulosis Possible celiac disease, workup in progress Mildly elevated LFTs with elevated T bili, etiology unclear, in a patient with history of cholecystectomy Hypokalemia Occasional EtOH use Prior nicotine dependence Hypertension Hyperlipidemia Plan: Continue current medication regime, monitoring and symptomatically matthew tment. Aggressive pulmonary toileting with incentive spirometer ordered. Activity should be increased,ambulate every shift, up in chair for all meals. PT/OT. Surgery recommendations regarding recent CT, pending. Family Discharge planning in progress pending, surgeries recommendations regardi ng recent CT The impression and plan of care has been dictated as directed. : I performed a history and examination of this patient, discussed the same with the dictator. I agree with the dictator's note ,documented as a scribe. Any additional findings or plans will be noted.
[2020-04-21 11:51] LABS: Glucose,Whole Blood 94 mg/dL (75-99)
--- NOTE | 2020-04-21 13:50 | P.DS ---
Providers Date of admission: 04/16/20 12:38 Expected date of discharge: 04/21/20 Attending physician: Chau Brennan Consults: 04/16/20 12:38 Consult Physician Urgent Consulting Provider: David Sotelo Consult Reason/Comments: Diverticulitis, partial small bowel obstruction Do you want consulting provider notified?: Yes 04/19/20 11:59 Consult Physician Routine Consulting Provider: Denver Pepe Consult Reason/Comments: abd pain Do you want consulting provider notified?: Yes Primary care physician: [facility] Course: Final Diagnoses: Acute diverticulitis secondary to inflammatory changes reported on CT, partial small bowel and colonic obstruction reported per CT. 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 Bilateral pleural effusions Bilateral atelectasis Complex left renal cyst, further follow-up outpatient Chronic diarrhea since bowel resection. Diverticulosis Mildly elevated LFTs with elevated T bili, etiology unclear, in a patient with history of cholecystectomy Prior nicotine dependence Hypertension Hyperlipidemia Hospital course:This is a 70-year-old female with history of bowel obstructions 2 with chronic diarrhea since second bowel resection surgery, hypercholesterol, hypertension , former nicotine dependence, skin cancer, diverticulosis and multiple other medical issues, presented to the ER with ongoing left lower quadrant abdominal pain worsening over the last 2 days.Denies nausea vomiting or diarrhea. Denies any chest pain, palpitations or shortness of breath. Denies any lightheadedness, dizziness or focal deficits. Afebrile, normal WBC. Hematology unremarkable. Sodium 137 potassium 3.4, chloride 109 carbon dioxide 21 BUN 12, creatinine 0.61, lactic acid 0.6. T bili, LFTs, amylase and lipase within normal limits. UA negative. Blood cultures pending. CT of abdomen and pelvis reported inflammatory change within the lower anterior pelvis, dilated fluid-filled small bowel loops leading to this level as well as to the sigmoid colon, loose about including dilated small bowel loops in fluid- filled colon proximal to this location dilated, partial small bowel and colonic obstruction suspected, sclerotic lesions within pelvis-possible metastasis, complex left renal cyst. 04/18/2020 NPO, maintain on bowel rest and IV fluids. Abdominal x-ray completed yesterday ,reported overall nonspecific bowel gas pattern redemonstrated, fluid-filled prominent small and distal small bowel loops. Recently received Zofran, reports nausea improving, no emesis. Abdominal pain lessening, requiring Dilaudid approximately every 7 hours. Patient has chronic diarrhea of 15-20 episodes per day as a baseline, currently 2 episodes this morning. Denies chest pain, palpitations or shortness of breath. Borderline hypotension, systolic blood pressures in the 90s, hypoglycemic. 04/21/2020 tolerating low fiber diet, consuming 50-75%. nausea subsided, last episode during the night. Denies abdominal pain. Chronic diarrhea ,less compared to baseline.Evaluated by surgery with recommendations noted and appreciated. CT of abdomen and pelvis completed yesterday, reporting evidence of partial mechanical small bowel obstruction with extensive inflammatory changes in radiating density and adhesions of the lower anterior abdomen with extraluminal air, appears unchanged, possible desmoplastic type of tumor, no discrete fluid collection to suggest abscess, new bilateral pleural effusions and bibasilar atelectasis. Afebrile. Maintained O2 sats in the high 90s on room air. Significant clinical improvement.Cleared by surgery for discharge. Patient is being discharged home in a stable condition with guarded prognosis. The impression and plan of care has been dictated as directed. : I performed a history and examination of this patient, discussed the same with the dictator. I agree with the dictator's note ,documented as a scribe. Any additional findings or plans will be noted. Patient Condition at Discharge: Stable Plan - Discharge Summary Discharge Rx Participant: No New Discharge Prescriptions: New Amoxicillin/Potassium Clav [Augmentin 875-125 Tablet] 1 tab PO BID 5 Days #10 tab Pantoprazole Sodium [Protonix] 40 mg PO DAILY #30 tablet.dr Shane Magnesium Oxide [Magox 400] 1,200 mg PO DAILY Potassium Chloride ER [K-Dur 10] 40 meq PO DAILY Spironolactone 25 mg PO DAILY Sodium Bicarbonate Tab 650 mg PO BID Ergocalciferol (Vitamin D2) [Drisdol] 50,000 unit PO Q14D Discharge Medication List Magnesium Oxide [Magox 400] 1,200 mg PO DAILY 07/16/16 [History] Potassium Chloride ER [K-Dur 10] 40 meq PO DAILY 06/11/19 [History] Spironolactone 25 mg PO DAILY 06/11/19 [History] Ergocalciferol (Vitamin D2) [Drisdol] 50,000 unit PO Q14D 04/16/20 [History] Sodium Bicarbonate Tab 650 mg PO BID 04/16/20 [History] Amoxicillin/Potassium Clav [Augmentin 875-125 Tablet] 1 tab PO BID 5 Days #10 tab 04/21/20 [Rx] Pantoprazole Sodium [Protonix] 40 mg PO DAILY #30 tablet. 04/21/20 [Rx] Follow up Appointment(s)/Referral(s): Denver Pepe DO [Doctor of Osteopathic Medicine] - 1 Week Chau Brennan Jr, DO [Primary Care Provider] - 3 Days
== END 2020-04-21 15:05 | disposition home or self-care (01) | DRG 389 ==
LOC: EC 08:48 → 4SSUR 12:38
PROVIDERS: ADMIT Family Medicine; ATTEND Family Medicine
DX: K56.600 Partial intestinal obstruction, unspecified as to cause (principal); K57.32 Diverticulitis of large intestine without perforation or abscess without bleeding; J90 Pleural effusion, not elsewhere classified; J98.11 Atelectasis; C79.89 Secondary malignant neoplasm of other specified sites; E16.2 Hypoglycemia, unspecified; E78.00 Pure hypercholesterolemia, unspecified; E78.5 Hyperlipidemia, unspecified; E87.6 Hypokalemia; I10 Essential (primary) hypertension; I25.2 Old myocardial infarction; J44.9 Chronic obstructive pulmonary disease, unspecified; M81.0 Age-related osteoporosis without current pathological fracture; N28.1 Cyst of kidney, acquired; Z79.899 Other long term (current) drug therapy; Z80.3 Family history of malignant neoplasm of breast; Z82.49 Family history of ischemic heart disease and other diseases of the circulatory system; Z83.3 Family history of diabetes mellitus; Z85.828 Personal history of other malignant neoplasm of skin; Z87.891 Personal history of nicotine dependence; Z90.49 Acquired absence of other specified parts of digestive tract; Z90.710 Acquired absence of both cervix and uterus; Z96.651 Presence of right artificial knee joint; Z86.14 Personal history of Methicillin resistant Staphylococcus aureus infection
CPT/HCPCS: 36415; 74019; 74177; 80048; 80053; 81001; 82150; 83605; 83690; 84132; 85025; 87040; 96365; 96375; 99285

== ENCOUNTER → 2020-05-29 | Outpatient (CLI) | payer MEDICARE, OTHER ==
[2020-05-29 12:05] LABS: Basophils % (A) 0 %; Eosinophils # (A) 0.3 k/uL (0-0.7); Eosinophils % (A) 3 %; HCT 30.4 % (34.0-46.0); Hypochromasia Marked; Lymphocytes # (A) 1.4 k/uL (1.0-4.8); Lymphocytes % (A) 17 %; MCHC 29.9 g/dL (31.0-37.0); MCV 90.3 fL (80.0-100.0); Monocytes # (A) 0.7 k/uL (0-1.0); Monocytes % (A) 8 %; Neutrophils % (A) 71 %; Platelet Count 500 k/uL (150-450); Poikilocytosis Slight; RBC 3.37 m/uL (3.80-5.40); RDW 15.9 % (11.5-15.5); WBC 8.4 k/uL (3.8-10.6)
[2020-05-29 12:29] LABS: HGB 9.1 gm/dL (11.4-16.0)
[2020-05-29 21:32] LABS: African American GFR (CKD) 106.3 (60.0-200.0); Albumin 3.9 g/dL (3.80-4.90); Albumin/Globulin Ratio 1.7 (1.60-3.17); Anion Gap 12.7 mmol/L (4.00-12.00); BUN/Creat Ratio 18.33 Ratio (12.00-20.00); C Reactive Protein 7.5 mg/dL (0.0-0.8); Calcium 9.1 mg/dL (8.7-10.3); Carbon Dioxide 27.3 mmol/L (21.6-31.8); Globulin 2.3 g/dL (1.6-3.3); Non-African American GFR(CKD) 91.7 (60.0-200.0); Potassium 3.1 mmol/L (3.5-5.5); Total Bilirubin 0.4 mg/dL (0.3-1.2); Total Protein 6.2 g/dL (6.2-8.2)
[2020-05-29 22:01] LABS: Erythrocyte Sedimentation Rate >140 mm/Hr (0-30)
== END | disposition home or self-care (01) ==
LOC: LABWHC1 09:46
PROVIDERS: ATTEND Family Medicine
DX: L98.495 Non-pressure chronic ulcer of skin of other sites with muscle involvement without evidence of necrosis (principal); T81.32XS Disruption of internal operation (surgical) wound, not elsewhere classified, sequela; R63.0 Anorexia; Z79.01 Long term (current) use of anticoagulants
CPT/HCPCS: 36415; 80053; 84134; 85025; 85652; 86140

== ENCOUNTER → 2020-06-09 | Outpatient (CLI) | payer MEDICARE, OTHER ==
[2020-06-09 12:23] LABS: African American GFR (CKD) >90 (>60 ml/min/1.73 sqM); Blood Urea Nitrogen 15 mg/dL (7-17); Non-African American GFR(CKD) >90 (>60 ml/min/1.73 sqM)
--- NOTE | 2020-06-09 14:57 | CT ---
EXAMINATION TYPE: CT abdomen pelvis w con DATE OF EXAM: 06/09/2020 COMPARISON: 04/20/2020 HISTORY: Status post Mariela procedure. CT DLP: 470.2 mGycm CONTRAST: CT scan of the abdomen and pelvis is performed with Oral Contrast and with IV Contrast, patient injec tala with 100 mL of Isovue M300. FINDINGS: LUNG BASES-: No visible nodule. No infiltrate. LIVER/GB: The gallbladder is surgically absent. No space occupying hepatic lesion. Biliary tree is of normal caliber. PANCREAS: No inflammation. No distinct mass. SPLEEN: No splenic enlargement. No lesion seen. ADRENALS: No nodule. No thickening. KIDNEYS/BLADDER: No hydronephrosis. 3 mm calculus left kidney is nonobstructing. Cystic lesion left kidney measures 2.1 cm. Urinary bladder grossly unremarkable. BOWEL: Postoperative changes of Mariela procedure. There is a small collection noted within the left lower quadrant measuring 2.8 x 1.7 cm with a small focus of fluid which may reflect postoperative se armando. Infected collection is not excluded. Left-sided ostomy is noted. Remainder of the small large b owel are of normal caliber. GENITAL ORGANS: No gross abnormality. LYMPH NODES: No greater than 1cm abdominal or pelvic lymph nodes are appreciated. AORTA: No significant abnormality. OSSEOUS STRUCTURES: No significant abnormality is seen. OTHER: No significant additional abnormality is seen. IMPRESSION: 1. Postoperative changes of Mariela procedure. There is a small collection noted within the left low er quadrant measuring 2.8 x 1.7 cm with a small focus of fluid which may reflect postoperative seroma . Infected collection is not excluded.
== END | disposition home or self-care (01) ==
LOC: RADCTMAIN 11:29
PROVIDERS: ATTEND Surgery Surgical Critical Care
DX: R18.8 Other ascites (principal); Z93.3 Colostomy status
CPT/HCPCS: 82565; 84520; 74177; 36415; Q9967 ×2

== ENCOUNTER 2022-11-07 17:30 | Observation (INO) | payer MEDICARE, OTHER ==
--- NOTE | 2022-11-07 17:50 | ED ---
Chest Pain HPI - General Chief Complaint: Chest Pain Stated Complaint: chest pain Time Seen by Provider: 11/07/22 17:38 Source: patient, RN notes reviewed, old records reviewed Mode of arrival: wheelchair Limitations: no limitations - History of Present Illness Initial Comments: This is a 72-year-old female to the emergency department for evaluation patient she is very emotional during history of present illness, diffuse body pains, aching. This is the anniversary Year of her passing causing her emotional distress. Patient states her last week she's been very fatigued sleeping more not acting her normal self. Family concerned of chest pain she had yesterday and today. Decreased appetite 70s and weight loss as of the last week as well. Patient is other than the emotional currently without complaint chest pain appears to be resumed is complains of severe fatigue and decreased appetite MD Complaint: chest pain, other (Fatigue and anorexia) -: week(s) Onset: during rest, during exertion Pain Location: substernal Pain Radiation: none Severity: mild Severity scale (1-10): 3 Quality: aching Consistency: intermittent Improves With: nothing Worsens With: nothing Treatments Prior to Arrival: other (0) - Related Data Home Medications Medication Instructions Recorded Confirmed Amoxic-Pot Clav 500-125 mg 1 tab PO TID 11/07/22 11/07/22 [Augmentin 500-125 mg] Magnesium(Unknown Dose) 1 tab PO DAILY 11/07/22 11/07/22 Potassium(Unknown Dose) 1 tab PO BID 11/07/22 11/07/22 Warfarin(Unknown Dose) 1 tab PO DAILY 11/07/22 11/07/22 Allergies Allergy/AdvReac Type Severity Reaction Status Date / Time No Known Allergies Allergy Verified 11/07/22 20:06 Review of Systems ROS Statement: Those systems with pertinent positive or pertinent negative responses have been documented in the HPI. ROS Other: All systems not noted in ROS Statement are negative. EKG Findings - EKG Comments: EKG Findings:: EKG is sinus 89 UT 132 QRS 77 QTc 407 Past Medical History Past Medical History: Cancer, Chest Pain / Angina, COPD, GERD/Reflux, Hyperlipidemia, Pneumonia, Skin Disorder Additional Past Medical History / Comment(s): Diverticular disease, bowel obstructions/surgery/chronic diarrhea since, beginnings of COPD, gastritis, osteoporosis, skin cancer with removals (basal/squamous), hypokalemia, gastritis, occasional bilateral ankle edema. Last Myocardial Infarction Date:: 1994 History of Any Multi-Drug Resistant Organisms: None Reported Date of last positivie culture/infection: 2010- MDRO Source:: abdomen from 2nd bowel surg Past Surgical History: Appendectomy, Bowel Resection, Cholecystectomy, Heart Catheterization, Hysterectomy, Joint Replacement, Tonsillectomy Additional Past Surgical History / Comment(s): Exporatory laparotomy, bowel resections x2/incisional hernia repair, hysterectomy then bilateral salpingoophorectomy, skin cancer removals, total R knee arthroplasty, EGD, colonoscopy, cardiac catheterizations. Past Anesthesia/Blood Transfusion Reactions: No Reported Reaction Past Psychological History: No Psychological Hx Reported Smoking Status: Former smoker Past Alcohol Use History: Occasional Past Drug Use History: None Reported - Past Family History Father Family Medical History: Coronary Artery Disease (CAD), Diabetes Mellitus, Hyperlipidemia, Hypertension Additional Family Medical History / Comment(s): CABG Mother Family Medical History: Cancer, Hyperlipidemia, Hypertension Additional Family Medical History / Comment(s): Mother survived breast cancer. Sister(s) Family Medical History: Cancer Additional Family Medical History / Comment(s): Sister is from breast cancer. General Exam Limitations: no limitations General appearance: alert, in no apparent distress Head exam: Present: atraumatic, normocephalic, normal inspection Eye exam: Present: normal appearance, PERRL, EOMI. Absent: scleral icterus, conjunctival injection, periorbital swelling ENT exam: Present: normal exam, mucous membranes moist Neck exam: Present: normal inspection. Absent: tenderness, meningismus, lymphadenopathy Respiratory exam: Present: normal lung sounds bilaterally. Absent: respiratory distress, wheezes, rales, rhonchi, stridor Cardiovascular Exam: Present: regular rate, normal rhythm, normal heart sounds. Absent: systolic murmur, diastolic murmur, rubs, gallop, clicks GI/Abdominal exam: Present: soft, normal bowel sounds. Absent: distended, tenderness, guarding, rebound, rigid Extremities exam: Present: normal inspection, full ROM, normal capillary refill. Absent: tenderness, pedal edema, joint swelling, calf tenderness Back exam: Present: normal inspection Neurological exam: Present: alert, oriented X3, CN II-XII intact Psychiatric exam: Present: normal affect, normal mood Skin exam: Present: warm, dry, intact, normal color. 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 sent in by a medical professional or institution? @ -no Did you speak to anyone other than the patient for history? @ -family at bedside concerned for CP and mental health, daepression Did you review nursing and triage notes? @ -agree Were old charts reviewed? @ -no Differential Diagnosis? @ -cp, weakenss, prior EKG interpreted by me (3pts min.)? @ -yes X-rays interpreted by me (1pt min.)? @ -no CT interpreted by me (1pt min.)? @ -no U/S interpreted by me (1pt. min.)? @ -no What testing was considered but not performed? (CT, X-rays, U/S, labs)? Why? @ -no What meds were considered but not given? Why? @ -no Did you discuss the management of the patient with other professionals? @ -no Did you reconcile home meds? @ -no Was smoking cessation discussed for >3mins.? @ -no Was critical care preformed (if so, how long)? @ -no Were there social determinants of health that impacted care today? How? (Homelessness, low income, unemployed, alcoholism, drug addiction, transportation, low edu. Level, literacy, decrease access to med. care, intermediate, rehab)? @ -no Was there de-escalation of care discussed even if they declined? (Discuss DNR or withdrawal of care, Hospice)? @ -no What co-morbidities impacted this encounter? (DM, HTN, Smoking, COPD, CAD, Cancer, CVA, Hep., AIDS, mental health diagnosis, sleep apnea, morbid obesity)? @ -no Was patient admitted / discharged? @ -dc Undiagnosed new problem with uncertain prognosis? @ -no Drug Therapy requiring intensive monitoring for toxicity (Heparin, Nitro, Insulin, Cardizem)? @ -no Were any procedures done? @ -no Diagnosis/symptom? @ -cp, weak, depression Acute, or Chronic, or Acute on Chronic? @ -acute on chronic Uncomplicated (without systemic symptoms) or Complicated (systemic symptoms)? @ -no Side effects of treatment? @ -no Exacerbation, Progression, or Severe Exacerbation] @ -no Poses a threat to life or bodily function? @ -no Reevaluation #5: 11/07/22 18:31 Differential Weakness: Hypoglycemia, shock, sepsis, hyponatremia, anemia, infection, TN, ETOH, adverse medicine reaction, overdose, stroke, this is not meant to be an all-inclusive list. Differential Chest Pain: Stable Angina, Unstable Angina, STEMI, NSTEMI Aortic Dissection, Pneumothorax, Musculoskeletal, Esophageal Spasm GERD, Cholecystitis, Pancreatitis, Zoster, this is not meant to be an all-inclusive list. Chest Pain MDM - MDM 72 female DF for evaluation patient presents today for evaluation regards to chest pain weakness and anorexia low magnesium and low potassium think it patient will be admitted for likely placement trending of troponin and probable psych consult Disposition Clinical Impression: Generalized weakness, Hypokalemia, Hypomagnesemia, Atypical chest pain Disposition: ADMITTED IP TO THIS HOSP Condition: Good Referrals: Chau Brennan Jr, DO [Primary Care Provider] - 1-2 days Time of Disposition: 21:20
[2022-11-07] MEDS ORDERED: SODIUM CHLORIDE 0.9% 1,000 ML IV STA (18:44)
[2022-11-07 19:21] LABS: Basophils % (A) 0 %; Eosinophils # (A) 0.1 k/uL (0-0.7); Eosinophils % (A) 1 %; HCT 42.2 % (34.0-46.0); HGB 14.7 gm/dL (11.4-16.0); Lymphocytes # (A) 2.3 k/uL (1.0-4.8); Lymphocytes % (A) 26 %; MCH 30.7 pg (25.0-35.0); MCHC 34.8 g/dL (31.0-37.0); MCV 88.3 fL (80.0-100.0); Monocytes # (A) 0.5 k/uL (0-1.0); Monocytes % (A) 6 %; Neutrophils # (A) 5.7 k/uL (1.3-7.7); Neutrophils % (A) 65 %; Platelet Count 303 k/uL (150-450); Poikilocytosis Slight; RBC 4.79 m/uL (3.80-5.40); RDW 14.8 % (11.5-15.5); WBC 8.8 k/uL (3.8-10.6)
[2022-11-07 19:38] LABS: Albumin 4.4 g/dL (3.5-5.0); Calcium 9.3 mg/dL (8.4-10.2); Phosphorus 3.2 mg/dL (2.5-4.5); Potassium 2.8 mmol/L (3.5-5.1); Total Bilirubin 0.8 mg/dL (0.2-1.3); Total Protein 7.3 g/dL (6.3-8.2)
[2022-11-07 19:39] LABS: INR 0.9 (<1.2); Partial Thromboplastin Time 23.4 sec (22.0-30.0); Prothrombin Time 9.8 sec (9.0-12.0)
--- NOTE | 2022-11-07 21:07 | CT ---
EXAMINATION TYPE: CT angio chest CT DLP: 280 mGycm, Automated exposure control for dose reduction was used. DATE OF EXAM: 11/07/2022 8:28 PM COMPARISON: Chest radiograph 07/13/2019, CT 06/11/2019 CLINICAL INDICATION:Female, 72 years old with history of pe; chest pain x2 days TECHNIQUE/CONTRAST: CTA scan of the thorax is performed with IV Contrast, patient injected with 80 mL of Isovue 370, pulm onary embolism protocol. MIP images are created and reviewed these are created on a separate worksta tion.. FINDINGS: Pulmonary Artery: There is no evidence for a filling defect within the pulmonary vasculature to sugge st acute pulmonary embolism. The pulmonary artery is of normal size. Lungs/Pleura: No evidence of focal consolidation, pleural effusion or pneumothorax. Airway: Large airways are patent. Heart: Heart is within normal limits for size. Vasculature: No evidence of aortic aneurysm. Mediastinum: No gross evidence of adenopathy. Musculoskeletal: No acute osseous abnormalities Soft Tissues: Unremarkable. Lower neck: Bilateral thyroid nodules measuring up to 1.7 cm on the left. Upper Abdomen: The gallbladder surgically absent. IMPRESSION: 1. No evidence of pulmonary embolism. 2. No finding to account for patient's chest pain.
[2022-11-07] MEDS ORDERED: NALOXONE 0.4 MG/ML 1 ML VIAL IV PRN (21:21)
[2022-11-07] MEDS ORDERED: ONDANSETRON 4 MG/2 ML VIAL IVP PRN (21:21)
[2022-11-07] MEDS ORDERED: Magnesium Replacement Protocol 1 EACH MISC MISCELLANE PRN (21:24)
[2022-11-07] MEDS ORDERED: Potassium Replacement Protocol 1 EACH MISC MISCELLANE PRN (21:24)
[2022-11-07] MEDS ORDERED: SODIUM CHLORIDE 0.9% 1,000 ML IV SCH (21:30)
[2022-11-07] MEDS ORDERED: MAGNESIUM SULFATE-D5W PMX 1 GM in DEXTROSE/WATER 1 100ML.BAG IVPB SCH (21:30)
[2022-11-07] MEDS ORDERED: POTASSIUM CHLORIDE ER 20 MEQ TAB.ER PO SCH (22:00)
[2022-11-07] MEDS: POTASSIUM CHLORIDE 10 MEQ in WATER FOR INJECTION 1 100ML.BAG IVPB SCH ×2 (22:11→23:17)
[2022-11-07] MEDS: MAGNESIUM SULFATE-D5W PMX 1 GM in DEXTROSE/WATER 1 100ML.BAG IVPB SCH (22:12)
[2022-11-08] MEDS: MAGNESIUM SULFATE-D5W PMX 1 GM in DEXTROSE/WATER 1 100ML.BAG IVPB SCH ×3 (00:16→02:48)
[2022-11-08] MEDS: POTASSIUM CHLORIDE 10 MEQ in WATER FOR INJECTION 1 100ML.BAG IVPB SCH ×4 (00:20→04:39)
[2022-11-08 02:25] VITALS: RESP 15
[2022-11-08 03:22] LABS: Basophils % (A) 0 %; Eosinophils # (A) 0.2 k/uL (0-0.7); Eosinophils % (A) 3 %; HCT 37.6 % (34.0-46.0); HGB 12.4 gm/dL (11.4-16.0); Lymphocytes # (A) 2.2 k/uL (1.0-4.8); Lymphocytes % (A) 28 %; MCH 29.7 pg (25.0-35.0); MCHC 32.9 g/dL (31.0-37.0); MCV 90.2 fL (80.0-100.0); Mean Platelet Volume 7.6; Monocytes # (A) 0.7 k/uL (0-1.0); Monocytes % (A) 8 %; Neutrophils # (A) 4.7 k/uL (1.3-7.7); Neutrophils % (A) 59 %; Platelet Count 293 k/uL (150-450); Poikilocytosis Slight; RBC 4.17 m/uL (3.80-5.40); RDW 14.8 % (11.5-15.5)
[2022-11-08 03:39] LABS: Potassium 3.2 mmol/L (3.5-5.1)
[2022-11-08 03:40] LABS: Calcium 8.1 mg/dL (8.4-10.2); Magnesium 2.9 mg/dL (1.6-2.3)
[2022-11-08] MEDS ORDERED: AMINOPHYLLINE 500 MG/20 ML VIAL IV PRN (09:47)
[2022-11-08] MEDS ORDERED: CAFFEINE CITRATE 60 MG/3 ML VIAL IV PRN (09:47)
[2022-11-08] MEDS ORDERED: REGADENOSON 0.4 MG/5 ML SYRINGE IV PRN (09:47)
[2022-11-08] MEDS ORDERED: POTASSIUM CHLORIDE ER 20 MEQ TAB.ER PO STA (10:10)
--- NOTE | 2022-11-08 10:13 | P.CRDCN ---
History of Present Illness Consult date: 11/08/22 Consult reason: chest pain History of present illness: History of present illness: This is a 72-year-old female patient previously seen by Dr. Pettit with past medical history of COPD, remote history of tobacco use and dependence, mild carotic atherosclerosis, right leg DVT on Coumadin, dyslipidemia, family history of premature coronary artery disease, previous bowel resections with colostomy, chronic hypokalemia and hypomagnesemia. She was last seen in the office in July 2020 at which time she was to have lab work, trial potassium powder and follow up on a repeat echo. We have been asked to evaluate the patient for chest pain. Patient complains of heaviness that was in the center of her chest while she was playing pool. She also got cool and clammy with nausea. She denies having any cough, fever or chills. She took a friend's nitroglycerin with improvement. EKG sinus rhythm with no acute ST changes CTA of the chest negative for pulmonary embolism CBC normal. Sodium 133, potassium 3.2, chloride 112, CO2 12, BUN 9 creatinine 1.05. Troponin negative 3. Liver function tests normal. Initial magnesium 1 and repeat 2.9. INR 0.9. Home cardiac medications: Potassium and magnesium supplements dose is unknown, warfarin 1 tablet daily, dose not documented Review Of Systems: At the time of my evaluation: Constitutional: No fever, no chills. No weakness, fatigue or lethargy. EENT: No headache. No dizziness. Lungs: No shortness of breath, cough, no sputum production. No wheezing. Cardiovascular: No chest pain, no lower extremity edema. No palpitations. No paroxysmal nocturnal dyspnea. No orthopnea. No lightheadedness or dizziness. No syncopal episodes. Abdominal: No abdominal pain. No nausea, vomiting. No diarrhea. No constipation. No bloody or tarry stools. Genitourinary: No dysuria.. No urinary retention. Musculoskeletal: No myalgias. No muscle weakness, no frequent falls. No back pain. No neck pain. Integumentary: No wounds. No rash. No unusual bruising. Neurologic: No aphasia. No facial droop. No change in mentation. No head injury. No headache. Physical examination: Gen: This is a frail appearing 72-year-old female. She appears to be in no acute distress. VS: reviewed HEENT: Head is atraumatic, normocephalic. Pupils equal, round. Sclerae is anicteric. NECK: Supple. No JVD. . LUNGS: Clear to auscultation. No wheezes or rhonchi. No intercostal retractions. HEART: Regular rate and rhythm. No murmur. ABDOMEN: Soft colostomy left side. EXTREMITIES: No pedal edema. No calf tenderness. NEUROLOGICAL: Patient is awake, alert and oriented x3. Assessment: Chest pain acute coronary syndrome ruled out COPD Remote history of tobacco use and dependence History of DVT Dyslipidemia Family history of premature coronary artery disease Previous bowel resections with colostomy Chronic hypokalemia and hypomagnesemia replaced Plan: Obtain Lexiscan stress test today Obtain 2-D echocardiogram and Doppler study to assess cardiac structure and function If Lexiscan stress test and echocardiogram are essentially normal, patient is cleared for discharge home today and may follow-up in the office. Further recommendations to follow based upon clinical course Thank you kindly for this consultation. Nurse practitioner note has been reviewed, I agree with documented findings and plan of care. Patient was seen and examined. Past Medical History Past Medical History: Cancer, Chest Pain / Angina, COPD, GERD/Reflux, Hyperli pidemia, Pneumonia, Skin Disorder Additional Past Medical History / Comment(s): Diverticular disease, bowel obstructions/surgery/chronic diarrhea since, beginnings of COPD, gastritis, osteoporosis, skin cancer with removals (basal/squamous), hypokalemia, gastritis, occasional bilateral ankle edema. Last Myocardial Infarction Date:: 1994 History of Any Multi-Drug Resistant Organisms: None Reported Date of last positivie culture/infection: 2010- MDRO Source:: abdomen from 2nd bowel surg Past Surgical History: Appendectomy, Bowel Resection, Cholecystectomy, Heart Catheterization, Hysterectomy, Joint Replacement, Tonsillectomy Additional Past Surgical History / Comment(s): Exporatory laparotomy, bowel resections x2/incisional hernia repair, hysterectomy then bilateral salpingoophorectomy, skin cancer removals, total R knee arthroplasty, EGD, colonoscopy, cardiac catheterizations. Past Anesthesia/Blood Transfusion Reactions: No Reported Reaction Past Psychological History: No Psychological Hx Reported Additional Psychological History / Comment(s): pt is , lives alone. She is independent. Smoking Status: Former smoker Past Alcohol Use History: Occasional Additional Past Alcohol Use History / Comment(s): Pt started smoking in 2 and quit in 2003. She drinks once or twice a week but less than 7 drinks per week. Past Drug Use History: None Reported - Past Family History Father Family Medical History: Coronary Artery Disease (CAD), Diabetes Mellitus, Hyperlipidemia, Hypertension Additional Family Medical History / Comment(s): CABG Mother Family Medical History: Cancer, Hyperlipidemia, Hypertension Additional Family Medical History / Comment(s): Mother survived breast cancer. Sister(s) Family Medical History: Cancer Additional Family Medical History / Comment(s): Sister is from breast cancer. Medications and Allergies Home Medications Medication Instructions Recorded Confirmed Type Amoxic-Pot Clav 500-125 mg 1 tab PO TID 11/07/22 11/07/22 History [Augmentin 500-125 mg] Magnesium(Unknown Dose) 1 tab PO DAILY 11/07/22 11/07/22 History Potassium(Unknown Dose) 1 tab PO BID 11/07/22 11/07/22 History Warfarin(Unknown Dose) 1 tab PO DAILY 11/07/22 11/07/22 History Allergies Allergy/AdvReac Type Severity Reaction Status Date / Time No Known Allergies Allergy Verified 11/07/22 20:06 Physical Exam Vitals: Vital Signs Temp Pulse Pulse Pulse Resp BP BP 11/08/22 07:47 11/08/22 07:00 97.7 F 64 15 147/68 11/08/22 02:00 97.7 F 70 15 136/66 11/07/22 22:59 68 16 137/68 11/07/22 21:25 78 16 140/56 11/07/22 19:07 87 17 131/78 11/07/22 17:51 85 11/07/22 17:32 97.5 F L 67 20 125/72 Pulse Ox 11/08/22 07:47 100 11/08/22 07:00 100 11/08/22 02:00 99 11/07/22 22:59 11/07/22 21:25 95 11/07/22 19:07 97 11/07/22 17:51 11/07/22 17:32 95 Intake and Output 11/07/22 11/08/22 11/08/22 22:59 06:59 14:59 Other: # Voids 2 0 Weight 50.349 kg Results 11/08/22 02:36 11/08/22 02:36 Cardiac Enzymes 11/07/22 11/07/22 11/07/22 Range/Units 18:57 18:57 23:14 AST 22 (14-36) U/L Troponin I <0.012 <0.012 (0.000-0.034) ng/mL 11/08/22 Range/Units 02:36 AST (14-36) U/L Troponin I <0.012 (0.000-0.034) ng/mL Coagulation 11/07/22 Range/Units 18:57 PT 9.8 (9.0-12.0) sec APTT 23.4 (22.0-30.0) sec CBC 11/07/22 11/08/22 Range/Units 18:57 02:36 WBC 8.8 8.0 (3.8-10.6) k/uL RBC 4.79 4.17 (3.80-5.40) m/uL Hgb 14.7 12.4 (11.4-16.0) gm/dL Hct 42.2 37.6 (34.0-46.0) % Plt Count 303 293 (150-450) k/uL Comprehensive Metabolic Panel 11/07/22 11/08/22 Range/Units 18:57 02:36 Sodium 137 133 L (137-145) mmol/L Potassium 2.8 L 3.2 L (3.5-5.1) mmol/L Chloride 109 H 112 H (98-107) mmol/L Carbon Dioxide 15 L 12 L (22-30) mmol/L BUN 10 9 (7-17) mg/dL Creatinine 1.17 H 1.05 H (0.52-1.04) mg/dL Glucose 82 88 (74-99) mg/dL Calcium 9.3 8.1 L (8.4-10.2) mg/dL AST 22 (14-36) U/L ALT 26 (4-34) U/L Alkaline Phosphatase 125 (38-126) U/L Total Protein 7.3 (6.3-8.2) g/dL Albumin 4.4 (3.5-5.0) g/dL Current Medications Generic Name Dose Route Start Last Admin Trade Name Freq PRN Reason Stop Dose Admin Miscellaneous Information 1 each 11/07/22 21:24 Potassium Replacement Protocol 1 Each Misc MISCELLANE DAILY PRN Per Protocol Protocol Miscellaneous Information 1 each 11/07/22 21:24 Magnesium Replacement Protocol 1 Each Misc MISCELLANE DAILY PRN Per Protocol Protocol Naloxone HCl 0.2 mg 11/07/22 21:21 Naloxone 0.4 Mg/Ml 1 Ml Vial IV Q2M PRN Opioid Reversal Ondansetron HCl 4 mg 11/07/22 21:21 Ondansetron 4 Mg/2 Ml Vial IVP Q8HR PRN Nausea And Vomiting Intake and Output 11/07/22 11/08/22 11/08/22 22:59 06:59 14:59 Other: # Voids 2 0 Weight 50.349 kg 11/08/22 02:36 11/08/22 02:36
[2022-11-08 10:53] LABS: Magnesium 2.8 mg/dL (1.6-2.3); Potassium 3.5 mmol/L (3.5-5.1)
[2022-11-08] MEDS ORDERED: SODIUM BICARBONATE TAB 650 MG TAB PO SCH (12:00)
[2022-11-08] MEDS ORDERED: PANTOPRAZOLE 40 MG/10 ML VIAL IVP SCH (12:15)
--- NOTE | 2022-11-08 13:59 | P.HPIM ---
History of Present Illness H&P Date: 11/08/22 Chief Complaint: Chest pressure History and Physical and Discharge Summary: This is a 72-year-old female with history of bowel obstructions 2, colostomy /chronic diarrhea with chronic hypokalemia and hypomagnesemia ,right leg DVT, hypercholesterol, hypertension , COPD, former nicotine dependence and multiple other medical issues presented to the ER with midsternal chest heaviness all playing pool accompanied by diaphoresis and nausea. Consumed a friend's sublingual nitroglycerin with improvement. Reports she has not been eating as well; her spouse approximately one year ago. Denies syncope, denies lightheadedness dizziness or focal deficits. Denies fever, chills, shortness of breath, cough, congestion. EKG reported sinus rhythm, troponins negative 3, chest CT reported negative for pulmonary embolism. Hematology unremarkable. INR 0.9. Potassium 2.8, receiving multiple supplements currently 3.5, magnesium 1-receiving multiple supplements currently 2.8. Bicarb 12, BUN 9, creatinine 1.05. Review of Systems ROS Statement: Those systems with pertinent positive or pertinent negative responses have been documented in the HPI. ROS Other: All systems not noted in ROS Statement are negative. Past Medical History Past Medical History: Cancer, Chest Pain / Angina, COPD, GERD/Reflux, Hyperlipidemia, Pneumonia, Skin Disorder Additional Past Medical History / Comment(s): Diverticular disease, bowel obstructions/surgery/chronic diarrhea since, beginnings of COPD, gastritis, osteoporosis, skin cancer with removals (basal/squamous), hypokalemia, gastritis, occasional bilateral ankle edema. Last Myocardial Infarction Date:: 1994 History of Any Multi-Drug Resistant Organisms: None Reported Date of last positivie culture/infection: 2010- MDRO Source:: abdomen from 2nd bowel surg Past Surgical History: Appendectomy, Bowel Resection, Cholecystectomy, Heart Catheterization, Hysterectomy, Joint Replacement, Tonsillectomy Additional Past Surgical History / Comment(s): Exporatory laparotomy, bowel resections x2/incisional hernia repair, hysterectomy then bilateral salpingoophorectomy, skin cancer removals, total R knee arthroplasty, EGD, colonoscopy, cardiac catheterizations. Past Anesthesia/Blood Transfusion Reactions: No Reported Reaction Past Psychological History: No Psychological Hx Reported Additional Psychological History / Comment(s): pt is , lives alone. She is independent. Smoking Status: Former smoker Past Alcohol Use History: Occasional Additional Past Alcohol Use History / Comment(s): Pt started smoking in 2 and quit in 2003. She drinks once or twice a week but less than 7 drinks per week. Past Drug Use History: None Reported - Past Family History Father Family Medical History: Coronary Artery Disease (CAD), Diabetes Mellitus, Hyperlipidemia, Hypertension Additional Family Medical History / Comment(s): CABG Mother Family Medical History: Cancer, Hyperlipidemia, Hypertension Additional Family Medical History / Comment(s): Mother survived breast cancer. Sister(s) Family Medical History: Cancer Additional Family Medical History / Comment(s): Sister is from breast cancer. Medications and Allergies Home Medications Medication Instructions Recorded Confirmed Type Amoxic-Pot Clav 500-125 mg 1 tab PO TID 11/07/22 11/07/22 History [Augmentin 500-125 mg] Magnesium Oxide [Magox 400] 400 mg PO DAILY 11/08/22 11/08/22 History Omeprazole 20 mg PO DAILY #30 cap 11/08/22 Rx Potassium Chloride ER [K-Dur 20] 20 meq PO BID #60 tab 11/08/22 Rx Sodium Bicarbonate Tab 650 mg PO BID tab 11/08/22 Rx Warfarin [Coumadin] 2 mg PO DAILY 11/08/22 11/08/22 History Allergies Allergy/AdvReac Type Severity Reaction Status Date / Time No Known Allergies Allergy Verified 11/07/22 20:06 Physical Exam Vitals: Vital Signs Temp Pulse Pulse Pulse Resp BP BP 11/08/22 07:47 11/08/22 07:00 97.7 F 64 15 147/68 11/08/22 02:00 97.7 F 70 15 136/66 11/07/22 22:59 68 16 137/68 11/07/22 21:25 78 16 140/56 11/07/22 19:07 87 17 131/78 11/07/22 17:51 85 11/07/22 17:32 97.5 F L 67 20 125/72 Pulse Ox 11/08/22 07:47 100 11/08/22 07:00 100 11/08/22 02:00 99 11/07/22 22:59 11/07/22 21:25 95 11/07/22 19:07 97 11/07/22 17:51 11/07/22 17:32 95 Intake and Output 11/07/22 11/08/22 11/08/22 22:59 06:59 14:59 Other: # Voids 2 0 Weight 50.349 kg PHYSICAL EXAM: VITAL SIGNS: As above GENERAL: Fragile 72-year-old female,sitting up in bed, tired appearing, no acute distress HEENT: Conjunctivae normal. eyes normal. NECK: Supple, No JVD. No thyroid enlargement. No LNs CARDIOVASCULAR: S1, S2 regular.No murmur RESPIRATION: Unlabored, Breath sounds diminished in the bases. No wheezing, rhonchi or crackles. No bronchial breathing. ABDOMEN: Soft, nontender . Functioning colostomy on left. No guarding. no masses palpable. No ascites, No hepatosplenomegaly.Bowel sounds heard. LEGS: No edema. no swelling PSYCHIATRY: Alert and oriented X3, mood and affect normal. NERVOUS SYSTEM: Cranial N 2-12 grossly normal. No focal deficits. Strength and sensation grossly intact.. Skin: Warm and dry, no rash Results CBC & Chem 7: 11/08/22 02:36 11/08/22 09:27 Labs: Abnormal Lab Results - Last 24 Hours (Table) 11/07/22 11/08/22 11/08/22 Range/Units 18:57 02:36 09:27 Sodium 133 L (137-145) mmol/L Potassium 2.8 L 3.2 L (3.5-5.1) mmol/L Chloride 109 H 112 H (98-107) mmol/L Carbon Dioxide 15 L 12 L (22-30) mmol/L Creatinine 1.17 H 1.05 H (0.52-1.04) mg/dL Calcium 8.1 L (8.4-10.2) mg/dL Magnesium 1.0 L 2.9 H 2.8 H (1.6-2.3) mg/dL Thrombosis Risk Factor Assmnt - Choose All That Apply Any of the Below Risk Factors Present?: Yes Each Factor Represents 1 point: Abnormal pulmonary function (COPD) Other Risk Factors: Yes Each Risk Factor Represents 2 Points: Age 61-74 years Other congenital or acquired thrombophilia - If yes, enter type in comment: No Thrombosis Risk Factor Assessment Total Risk Factor Score: 3 Thrombosis Risk Factor Assessment Level: Moderate Risk Assessment and Plan Assessment: Chest pain in a patient with family history of CAD,ACS ruled out Chronic Hypokalemia Chronic Hypomagnesemia History of bowel obstructions 2 with colostomy, chronic diarrhea since bowel resection. Diverticulosis, history of Occasional EtOH use Prior nicotine dependence COPD, stable Hypertension Hyperlipidemia History of DVT Plan: Continue on current medication regime ,monitoring and symptomatic treatment. Evaluated by cardiology with echo and Lexiscan stress test ordered. Electrolytes supplemented and now within normal limits. Patient will be discharged home later today, in a stable condition with guarded prognosis, pending stress test, echo, final DC recommendations and clearance per cardiology. Discharge Medication List Amoxic-Pot Clav 500-125 mg [Augmentin 500-125 mg] 1 tab PO TID 11/07/22 [Hi story] Magnesium Oxide [Magox 400] 400 mg PO DAILY 11/08/22 [History] Omeprazole 20 mg PO DAILY #30 cap 11/08/22 [Rx] Potassium Chloride ER [K-Dur 20] 20 meq PO BID #60 tab 11/08/22 [Rx] Sodium Bicarbonate Tab 650 mg PO BID tab 11/08/22 [Rx] Warfarin [Coumadin] 2 mg PO DAILY 11/08/22 [History] The impression and plan of care has been dictated as directed. : I performed a history and examination of this patient, discussed the same with the dictator. I agree with the dictator's note ,documented as a scribe. Any additional findings or plans will be noted.
--- NOTE | 2022-11-08 14:42 | NM ---
EXAMINATION TYPE: NM stress lexiscan cardiolite DATE OF EXAM: 11/08/2022 COMPARISON: Prior study June 12, 2019. CTA chest from yesterday. HISTORY: History of COPD and hypercholesterolemia with chest pain and difficulty in breathing TECHNIQUE: After the intravenous administration of 9.8 mCi Tc 99m Sestamibi - Cardiolite resting SPE CT images acquired 70 minutes post injection. The patient received 0.4mg Lexiscan, 25.7 mCi Tc 99m Sestamibi - Stress images obtained [address] injection FINDINGS: Review of stress and rest SPECT images demonstrates no distinct perfusion abnormality. Gated analysi s shows normal wall motion with an estimated left ventricular ejection fraction of greater than 65 %. IMPRESSION: No scintigraphic evidence for reversible ischemia. No significant change from prior.
[2022-11-08 14:48] VITALS: BP 111/62; PULSE 73; TEMP 97.5
--- NOTE | 2022-11-08 17:47 | CA ---
Lexiscan Nuclear Stress Test Report Name: Ning Acharya Exam Date: 11/08/2022 11:58 Exam Location: [place] Stress Ht (in): 62 Wt (lb): 111 BSA: 1.49 Ordering Phys: Ruth Ann Burrell Referring Phys: RIK, Technologist: Aidan Mascorro Age: 72 Gender: F : 1950 Procedure CPT: Indications: Reflex order-Stress test ICD-10 Codes: Patient History: CHEST PAIN, DIFFICULTY IN BREATHING, ANGINA, ELEVATED CHOLESTEROL LEVELS, FAMILY HX OF HEART DISEASE, PRIOR SMOKER, CARDIAC CATH, COPD Medications: Meds past 24 hrs: Pretest Chest Pain: STRESS TEST Lexiscan Protocol Exercise Duration (min:sec): 01:[address] Depressions (mm): Angina Score: Jackson Score: Resting HR (bpm): 63 Peak HR (bpm): 94 Resting BP (mmHg): 135 / 61 Peak BP (mmHg): 143 / 55 MPHR: 147 Target HR: 125 % MPHR: 64 METS: 1.0 Total Dose: Peak Dose: Atropine: Double Product: 06545 BP Response: Stress Termination: INFUSION COMPLETE Stress Symptoms: NO SYMPTOMS Stress Summary: ECG ANALYSIS Resting ECG: Normal sinus rhythm normal axis normal intervals Stress ECG: Normal EKG response to Lexiscan CONCLUSIONS Negative stress test by EKG criteria Cardiolite portion of the stress test was reported separately Dr. Ace Campo MD (Electronically Signed) Final Date: 08 November 2022 17:46
--- NOTE | 2022-11-08 18:15 | CA ---
Transthoracic Echo Report Name: Ning Acharya Age: 72 Gender: F : 1950 Exam Date: 11/08/2022 11:36 Exam Location: [facility] Echo Ht (in): 62 Wt (lb): 111 Ordering Physician: Ace Campo MD ([id number]) Attending/Referring Phys: Alber SCHULTE Imaging Technologist Anne Reyes RDCS Procedure CPT: Indications: Chest Pain Cardiac Hx: Technical Quality: Good Contrast 1: Total Dose (mL): Contrast 2: Total Dose (mL): MEASUREMENTS (Male / Female) Normal Values 2D ECHO LV Diastolic Diameter PLAX 4.1 cm 4.2 - 5.9 / 3.9 - 5.3 cm LV Systolic Diameter PLAX 2.5 cm IVS Diastolic Thickness 1.1 cm 0.6 - 1.0 / 0.6 - 0.9 cm LVPW Diastolic Thickness 1.2 cm 0.6 - 1.0 / 0.6 - 0.9 cm LV Relative Wall Thickness 0.6 RV Internal Dim ED PLAX 2.5 cm LA Systolic Diameter LX 3.2 cm 3.0 - 4.0 / 2.7 - 3.8 cm LA Volume 32.9 cm??? 18 - 58 / 22 - 52 cm??? M-MODE Aortic Root Diameter MM 3.3 cm MV E Point Septal Separation 0.7 cm AV Cusp Separation MM 2.1 cm DOPPLER AV Peak Velocity 148.2 cm/s AV Peak Gradient 8.8 mmHg MV Area PHT 3.6 cm??? Mitral E Point Velocity 82.6 cm/s Mitral A Point Velocity 96.6 cm/s Mitral E to A Ratio 0.9 MV Deceleration Time 211.1 ms MV E' Velocity 6.8 cm/s Mitral E to MV E' Ratio 12.1 FINDINGS Left Ventricle Left ventricular ejection fraction is estimated at 55-60 %. Mildly increased septal wall thickness. Mildly increased posterior wall thickness. Left ventricular cavity size normal. Normal left ventricular wall motion. Right Ventricle Normal right ventricular size and function. No TR unable to estimate the right ventricular systolic pressure. Right Atrium Normal right atrial size. Left Atrium Left atrium not well visualized. Mitral Valve Structurally normal mitral valve. No mitral stenosis, regurgitation or prolapse. Aortic Valve Trileaflet aortic valve. No aortic valve stenosis or regurgitation. Tricuspid Valve Structurally normal tricuspid valve. No tricuspid regurgitation. Pulmonic Valve Structurally normal pulmonic valve. No pulmonic regurgitation. Pericardium Normal pericardium. No pericardial effusion. Aorta Normal size aortic root and proximal ascending aorta. CONCLUSIONS Normal LV function Previewed by: Dr. Ace Campo MD (Electronically Signed) Final Date: 08 November 2022 18:14
== END 2022-11-08 16:10 | disposition home or self-care (01) ==
LOC: EC 17:30 → 6NMEDSUR 21:24
PROVIDERS: ADMIT Family Medicine; ATTEND Family Medicine
DX: R07.89 Other chest pain (principal); J44.9 Chronic obstructive pulmonary disease, unspecified; E78.5 Hyperlipidemia, unspecified; Z82.49 Family history of ischemic heart disease and other diseases of the circulatory system; Z90.49 Acquired absence of other specified parts of digestive tract; E87.6 Hypokalemia; E83.42 Hypomagnesemia; K21.9 Gastro-esophageal reflux disease without esophagitis; K52.9 Noninfective gastroenteritis and colitis, unspecified; M81.0 Age-related osteoporosis without current pathological fracture; I25.2 Old myocardial infarction; Z87.01 Personal history of pneumonia (recurrent); Z87.19 Personal history of other diseases of the digestive system; Z86.19 Personal history of other infectious and parasitic diseases; Z87.891 Personal history of nicotine dependence; Z86.718 Personal history of other venous thrombosis and embolism; Z90.710 Acquired absence of both cervix and uterus; Z96.651 Presence of right artificial knee joint; Z90.722 Acquired absence of ovaries, bilateral; Z85.828 Personal history of other malignant neoplasm of skin; Z98.890 Other specified postprocedural states; Z83.3 Family history of diabetes mellitus; Z83.438 Family history of other disorder of lipoprotein metabolism and other lipidemia; Z80.3 Family history of malignant neoplasm of breast; Z79.01 Long term (current) use of anticoagulants; Z79.899 Other long term (current) drug therapy
CPT/HCPCS: 96366 ×2; 96375; 96368; 96365; 99285; 36415; 94760; 93017; 93306; 83880; 80053; 80048; 83735 ×2; 84100; 84132; 84484 ×2; 85025 ×2; 85610; 85730; 71275; 78452; G0378 ×2; A9500; J3475 ×2; J3480 ×2; J2785; C9113; Q9967

== ENCOUNTER → 2022-12-07 | Outpatient (CLI) | payer MEDICARE, OTHER ==
--- NOTE | 2022-12-07 16:39 | CT ---
EXAMINATION TYPE: CT chest w con DATE OF EXAM: 12/07/2022 COMPARISON: 11/07/2022 HISTORY: F/U LUNG NODULE CT DLP: 387 mGycm, Automated exposure control for dose reduction was used. CONTRAST: Performed injected with 80 mL of Isovue 300. TECHNIQUE: Axial images were obtained at 5 mm thick sections. Reconstructed images are reviewed on HALKAR computer in the coronal plane. FINDINGS: Hypodense large left lobe thyroid nodules present. Smaller hypodensities within the posteri or left and within the mid right thyroid lobe. These can be further evaluated with ultrasound. No suspicious lung nodules or focal infiltrates are present. If a comparison study reporting a lung nodule can be located, an addendum report can be issued. No enlarged mediastinal or hilar adenopathy is evident. The ascending aorta diameter at the level of the main pulmonary artery is 2.8 cm. The main pulmonary artery diameter at the bifurcation is 2.[address] sections are obtained through the upper abdomen. Abdomen is essentially unremarkable. IMPRESSIONS: 1. No suspicious lung nodules. 2. No acute pulmonary process.
== END | disposition home or self-care (01) ==
LOC: RADCTMAIN 11:57
PROVIDERS: ATTEND Internal Medicine Critical Care Medicine
DX: R91.1 Solitary pulmonary nodule (principal)
CPT/HCPCS: 82565; 84520; 71260; 36415; Q9967

== ENCOUNTER → 2024-01-19 | Outpatient (CLI) | payer MEDICARE, OTHER ==
[2024-01-19 18:16] LABS: Basophils # (A) 0.07 X 10*3/uL (0.00-0.10); Basophils % (A) 0.8 %; Eosinophils # (A) 0.12 X 10*3/uL (0.04-0.35); Eosinophils % (A) 1.4 %; HCT 42.4 % (37.2-46.3); HGB 13.4 g/dL (12.0-15.0); MCH 28.8 pg (27.0-32.0); MCHC 31.6 g/dL (32.0-37.0); Mean Platelet Volume 9.5 FL (9.5-12.2); Monocytes # (A) 0.82 X 10*3/uL (0.20-1.00); Monocytes % (A) 9.4 %; NRBC Per 100 WBC 0 X 10*3/uL (0.00-0.01); Neutrophils # (A) 5.65 X 10*3/uL (1.80-7.70); Neutrophils % (A) 64.8 %; Platelet Count 242 X 10*3/uL (140-440); RBC 4.66 X 10*6/uL (4.10-5.20); RDW 14.8 % (11.5-14.5); WBC 8.71 X 10*3/uL (4.50-10.00)
[2024-01-19 19:32] LABS: ALT 27 U/L (8-44); AST 24 U/L (13-35); Albumin 4.6 g/dL (3.8-4.9); Albumin/Globulin Ratio 2.09 Ratio (1.60-3.17); Alkaline Phosphatase 165 U/L (41-126); Blood Urea Nitrogen 12.6 mg/dL (9.0-27.0); Calcium 9.6 mg/dL (8.7-10.3); Carbon Dioxide 21.8 mmol/L (21.6-31.8); Chloride 105 mmol/L (96-109); Globulin 2.2 g/dL (1.6-3.3); Glucose 89 mg/dL (70-110); Potassium 3.5 mmol/L (3.5-5.5); Sodium 142 mmol/L (135-145); Total Bilirubin 0.5 mg/dL (0.3-1.2); Total Protein 6.8 g/dL (6.2-8.2)
== END | disposition home or self-care (01) ==
LOC: LABWHC1 12:27
PROVIDERS: ATTEND Family Medicine
DX: K62.89 Other specified diseases of anus and rectum (principal); R10.2 Pelvic and perineal pain; Z68.24 Body mass index [BMI] 24.0-24.9, adult
CPT/HCPCS: 36415; 80053; 85025

== ENCOUNTER → 2024-02-13 | Outpatient (CLI) | payer MEDICARE, OTHER ==
--- NOTE | 2024-02-13 09:51 | CT ---
EXAMINATION TYPE: CT abdomen pelvis wo con CT DLP: 304.2 mGycm, Automated exposure control for dose reduction was used. DATE OF EXAM: 02/13/2024 7:48 AM COMPARISON: CT abdomen pelvis 06/09/2020, 04/20/2020 CLINICAL INDICATION:Female, 74 years old with history of R10.2,K62.89; RLQ pain TECHNIQUE: Standard CT of the abdomen and pelvis without IV or oral contrast. Lack of IV or oral co ntrast limits evaluation of solid and hollow organ viscera. Coronal and sagittal reformats were perfo rmed. FINDINGS: LOWER CHEST: Bibasilar linear atelectasis and/or scarring. ABDOMEN LIVER: Unremarkable GALLBLADDER AND BILE DUCTS: The gallbladder is surgically absent. No biliary duct dilatation. PANCREAS: Mild atrophy. SPLEEN: Unremarkable. ADRENAL GLANDS: Unremarkable. KIDNEYS AND URETERS: No evidence of hydronephrosis. Mild atrophy of both kidneys. Nonobstructive bila teral renal calculi largest in the left kidney measuring up to 4 mm. PELVIS BLADDER: Incompletely distended but grossly unremarkable. REPRODUCTIVE: The uterus is surgically absent. Postsurgical changes of the cecum with scarring abutti ng the vaginal cuff. ABDOMEN & PELVIS STOMACH AND BOWEL: Fat-containing 4.1 cm lesion within the proximal duodenum/distal stomach (series 3 , image 48). Most consistent with a lipoma. Left lower quadrant colostomy redemonstrated. Postoperati ve changes of zhou procedure. Additional post surgical changes of the cecum. No evidence of bowel obstruction. PERITONEUM: No evidence of pneumoperitoneum or free fluid. Surgical clips within the lower mid mesent aidan redemonstrated. There is some tethering appearance of the bowel within the pelvis. VASCULATURE: Moderate atherosclerotic calcifications are present throughout the abdominal aorta and i ts branches. No evidence of aortic aneurysm. MUSCULOSKELETAL: No acute osseous abnormalities. Stable sclerotic 1.2 cm lesion within the right katlyn c bone. Additional stable sclerotic lesion within the left hemisacrum near midline. LYMPH NODES: No gross evidence for lymphadenopathy. SOFT TISSUE/ABDOMINAL WALL: Left lower quadrant colostomy redemonstrated. IMPRESSION: 1. No CT evidence of an acute process within limitations of a noncontrast exam. 2. Postsurgical changes of the bowel redemonstrated. No CT evidence for obstruction. 3. Prominent proximal duodenal/distal stomach lipoma identified. 4. Nonobstructive bilateral renal calculi.
== END | disposition home or self-care (01) ==
LOC: RADCTMAIN 07:34
PROVIDERS: ATTEND Family Medicine
DX: D17.5 Benign lipomatous neoplasm of intra-abdominal organs (principal); N20.0 Calculus of kidney
CPT/HCPCS: 74176

== ENCOUNTER → 2024-06-01 | Outpatient (CLI) | payer MEDICARE, OTHER ==
--- NOTE | 2024-06-08 10:46 | MM ---
Reason for Exam: Screening (asymptomatic). Last mammogram was performed 5 year(s) and 6 month(s) ago. Patient History: Menarche at age 11. First Full-Term at age 24. Hysterectomy at age 28. Postmenopausal. Mother had breast cancer. Sister had breast cancer. Risk Values: Tamara 5 year model risk: 6.1%. NCI Lifetime model risk: 12.7%. Prior Study Comparison: 11/25/2017 Bilateral Screening Mammogram, [facility]. 11/27/2018 Bilateral Screening Mammogram, [facility]. Tissue Density: The breasts are heterogeneously dense, which may obscure small masses. Findings: Analyzed By CAD. Right breast: There is no suspicious group of microcalcifications or new suspicious mass. Left breast: There is no suspicious group of microcalcifications or new suspicious mass. Overall Assessment: Negative, BI-RAD 1 Management: Screening Mammogram of both breasts in [address] [facility] will attempt to contact patient to return for supplemental views and ultrasound if indicated. Patient should continue monthly self-breast exams. A clinical breast exam by your physician is recommended on an annual basis. This exam should not preclude additional follow-up of suspicious palpable abnormalities. Note on Tamara scores and lifetime risk: 1. A Tamara score greater than 3% is considered moderate risk. If this is the case, consider specialist referral to assess eligibility for a risk reducing agent. 2. If overall lifetime risk for the development of breast cancer is 20% or higher, the patient may qualify for future screening with alternating mammogram and breast MRI. [facility], , 06/08/2024 10:36 AM. Electronically signed and approved by: Panchito Perez DO
== END | disposition home or self-care (01) ==
LOC: RADMAMWWP 11:10
PROVIDERS: ATTEND Family Medicine
DX: Z12.31 Encounter for screening mammogram for malignant neoplasm of breast (principal); R92.333 Mammographic heterogeneous density, bilateral breasts; Z78.0 Asymptomatic menopausal state; Z80.3 Family history of malignant neoplasm of breast
CPT/HCPCS: 77063; 77067

== ENCOUNTER 2024-07-06 08:45 | Inpatient (IN) | payer MEDICARE, OTHER ==
--- NOTE | 2024-07-06 09:23 | ED ---
General Adult HPI - General Chief complaint: Abdominal Pain Stated complaint: Abdominal Pain Time Seen by Provider: 07/06/24 09:03 Source: patient, family, RN notes reviewed, old records reviewed Mode of arrival: wheelchair Limitations: no limitations - History of Present Illness Initial comments: 74-year-old female presenting for evaluation of abdominal pain adjacent to her colostomy. Patient received colostomy 4 years prior at [facility] for reported b owel blockage. Patient states that she was feeling fine up until just prior to arrival when she developed moderate to severe pain. No vomiting. No fever. She has had stool output from the ostomy. - Related Data Home Medications Medication Instructions Recorded Confirmed Amoxic-Pot Clav 500-125 mg 1 tab PO TID 11/07/22 11/07/22 [Augmentin 500-125 mg] Magnesium Oxide [Magox 400] 400 mg PO DAILY 11/08/22 11/08/22 Warfarin [Coumadin] 2 mg PO DAILY 11/08/22 11/08/22 Previous Rx's Medication Instructions Recorded Omeprazole 20 mg PO DAILY #30 cap 11/08/22 Potassium Chloride ER [K-Dur 20] 20 meq PO BID #60 tab 11/08/22 Sodium Bicarbonate Tab 650 mg PO BID tab 11/08/22 Cephalexin [Keflex] 500 mg PO Q6HR #20 cap 02/05/23 Allergies Allergy/AdvReac Type Severity Reaction Status Date / Time No Known Allergies Allergy Verified 07/06/24 08:57 Review of Systems ROS Statement: Those systems with pertinent positive or pertinent negative responses have been documented in the HPI. ROS Other: All systems not noted in ROS Statement are negative. Past Medical History Past Medical History: Cancer, Chest Pain / Angina, COPD, GERD/Reflux, Hyperlipidemia, Pneumonia, Skin Disorder Additional Past Medical History / Comment(s): Diverticular disease, bowel obstructions/surgery/chronic diarrhea since, beginnings of COPD, gastritis, osteoporosis, skin cancer with removals (basal/squamous), hypokalemia, gastritis, occasional bilateral ankle edema. Colostomy bag Last Myocardial Infarction Date:: 1994 History of Any Multi-Drug Resistant Organisms: None Reported, MRSA Date of last positivie culture/infection: 2010- MDRO Source:: abdomen from 2nd bowel surg Past Surgical History: Appendectomy, Bowel Resection, Cholecystectomy, Heart Catheterization, Hysterectomy, Joint Replacement, Tonsillectomy Additional Past Surgical History / Comment(s): Exporatory laparotomy, bowel resections x2/incisional hernia repair, hysterectomy then bilateral salpingoophorectomy, skin cancer removals, total R knee arthroplasty, EGD, colonoscopy, cardiac catheterizations. Past Anesthesia/Blood Transfusion Reactions: No Reported Reaction Past Psychological History: No Psychological Hx Reported Smoking Status: Former smoker Past Alcohol Use History: Occasional Past Drug Use History: None Reported - Past Family History Father Family Medical History: Coronary Artery Disease (CAD), Diabetes Mellitus, Hyperlipidemia, Hypertension Additional Family Medical History / Comment(s): CABG Mother Family Medical History: Cancer, Hyperlipidemia, Hypertension Additional Family Medical History / Comment(s): Mother survived breast cancer. Sister(s) Family Medical History: Cancer Additional Family Medical History / Comment(s): Sister is from breast cancer. General Exam Limitations: no limitations General appearance: alert, in distress Head exam: Present: atraumatic, normocephalic Eye exam: Present: normal appearance, PERRL ENT exam: Present: normal exam Neck exam: Present: normal inspection. Absent: tenderness, meningismus Respiratory exam: Present: normal lung sounds bilaterally. Absent: respiratory distress, wheezes Cardiovascular Exam: Present: regular rate, normal rhythm GI/Abdominal exam: Present: soft, tenderness (Tenderness Adjacent to the ostomy), guarding. Absent: distended Extremities exam: Present: normal inspection Neurological exam: Present: alert, oriented X3, CN II-XII intact. Absent: motor sensory deficit Psychiatric exam: Present: normal affect, normal mood Skin exam: Present: warm, dry, intact. Absent: cyanosis, diaphoretic Course Vital Signs 07/06/24 07/06/24 08:57 11:32 Temperature 97.5 F L Pulse Rate 89 94 Respiratory 20 19 Rate Blood Pressure 158/81 146/69 O2 Sat by Pulse 98 95 Oximetry Medical Decision Making - Medical Decision Making Was pt. sent in by a medical professional or institution (, PA, BALANCE SCREWHEAD POLISHER, urgent care, hospital, or residential...) When possible be specific @ -No Did you speak to anyone other than the patient for history (EMS, parent, family, police, friend...)? What history was obtained from this source @ -No Did you review nursing and triage notes (agree or disagree)? Why? @ -I reviewed and agree with nursing and triage notes Were old charts reviewed (outside hosp., previous admission, EMS record, old EKG, old radiological studies, urgent care reports/EKG's, residential records)? Report findings @ -No old charts were reviewed Differential Abdominal Pain Women: Appendicitis, Cholecystitis, diverticulosis, ischemic bowel, pancreatitis, hepatitis, UTI, gastroenteritis, AAA, incarcerated hernia, bowel obstruction, constipation, inflammatory bowel, hepatitis, peptic ulcer disease, splenic infarction, perforated viscus, , kidney stone, this is not meant to be an all- inclusive list EKG interpreted by me (3pts min.). @ -As above X-rays interpreted by me (1pt min.). @ -None done CT interpreted by me (1pt min.). @ -CT of the abdomen pelvis shows small bowel adjacent to the colostomy with inflammatory change. U/S interpreted by me (1pt. min.). @ -None done What testing was considered but not performed or refused? (CT, X-rays, U/S, la bs)? Why? @ -None What meds were considered but not given or refused? Why? @ -None Did you discuss the management of the patient with other professionals (professionals i.e. , PA, BALANCE SCREWHEAD POLISHER, lab, RT, psych nurse, social service agency director, director of women's services, teacher, conservation officer, manager case)? Give summary @ -Case discussed with Dr. Bergeron who is available to see the patient emergency department recommends NG tube and admission to medicine with surgery on consult for possible hernia reduction. Case discussed with Dr. Cronin who will admit Was smoking cessation discussed for >3mins.? @ -No Was critical care preformed (if so, how long)? @ -No Were there social determinants of health that impacted care today? How? (Homelessness, low income, unemployed, alcoholism, drug addiction, transportation, low edu. Level, literacy, decrease access to med. care, fci, rehab)? @ -No Was there de-escalation of care discussed even if they declined (Discuss DNR or withdrawal of care, Hospice)? DNR status @ -No What co-morbidities impacted this encounter? (DM, HTN, Smoking, COPD, CAD, Cancer, CVA, ARF, Chemo, Hep., AIDS, mental health diagnosis, sleep apnea, morbid obesity)? @Previous ostomy Was patient admitted / discharged? Hospital course, mention meds given and route, prescriptions, significant lab abnormalities, going to OR and other pertinent info. @ -Patient admitted to Dr. Cronin with surgery on consult for parastomal hernia and developing small bowel obstruction. Undiagnosed new problem with uncertain prognosis? @ -No Drug Therapy requiring intensive monitoring for toxicity (Heparin, Nitro, Insulin, Cardizem)? @ -No Were any procedures done? @ -No Diagnosis/symptom? @ -Parastomal hernia, bowel obstruction Acute, or Chronic, or Acute on Chronic? @ -[Acute Uncomplicated (without systemic symptoms) or Complicated (systemic symptoms)? @ -Complicated Side effects of treatment? @ -[No Exacerbation, Progression, or Severe Exacerbation? @ -No Poses a threat to life or bodily function? How? (Chest pain, USA, DC, pneumonia, PE, COPD, DKA, ARF, appy, cholecystitis, CVA, Diverticulitis, Homicidal, Suicidal, threat to staff... and all critical care pts) @ -Yes, bowel obstruction, ischemic bowel - Lab Data Result diagrams: 07/06/24 10:07 07/06/24 10:07 Lab Results 07/06/24 07/06/24 07/06/24 Range/Units 10:07 10:07 10:07 WBC 11.6 H (3.8-10.6) k/uL RBC 5.25 (3.80-5.40) m/uL Hgb 15.7 (11.4-16.0) gm/dL Hct 48.2 H (34.0-46.0) % MCV 91.8 (80.0-100.0) fL MCH 29.8 (25.0-35.0) pg MCHC 32.5 (31.0-37.0) g/dL RDW 13.6 (11.5-15.5) % Plt Count 263 (150-450) k/uL MPV 6.7 Neutrophils % 89 % Lymphocytes % 6 % Monocytes % 2 % Eosinophils % 1 % Basophils % 1 % Neutrophils # 10.4 H (1.3-7.7) k/uL Lymphocytes # 0.7 L (1.0-4.8) k/uL Monocytes # 0.3 (0-1.0) k/uL Eosinophils # 0.1 (0-0.7) k/uL Basophils # 0.1 (0-0.2) k/uL PT 10.3 (10.0-12.5) sec INR 0.9 (<1.2) APTT 22.0 (22.0-30.0) sec Sodium 136 L (137-145) mmol/L Potassium 3.4 L (3.5-5.1) mmol/L Chloride 102 (98-107) mmol/L Carbon Dioxide 23 (22-30) mmol/L Anion Gap 11 mmol/L BUN 14 (7-17) mg/dL Creatinine 0.94 (0.52-1.04) mg/dL Est GFR (CKD-EPI)AfAm 69 (>60 ml/min/1.73 sqM) Est GFR (CKD-EPI)NonAf 60 (>60 ml/min/1.73 sqM) Glucose 90 (74-99) mg/dL Lactic Ac Sepsis Rflx Plasma Lactic Acid Franck (0.7-2.0) mmol/L Calcium 10.3 H (8.4-10.2) mg/dL Total Bilirubin 1.0 (0.2-1.3) mg/dL AST 34 (14-36) U/L ALT 40 H (4-34) U/L Alkaline Phosphatase 156 H (38-126) U/L Total Protein 7.8 (6.3-8.2) g/dL Albumin 5.2 H (3.5-5.0) g/dL Lipase 94 (23-300) U/L 07/06/24 07/06/24 Range/Units 10:07 10:43 WBC (3.8-10.6) k/uL RBC (3.80-5.40) m/uL Hgb (11.4-16.0) gm/dL Hct (34.0-46.0) % MCV (80.0-100.0) fL MCH (25.0-35.0) pg MCHC (31.0-37.0) g/dL RDW (11.5-15.5) % Plt Count (150-450) k/uL MPV Neutrophils % % Lymphocytes % % Monocytes % % Eosinophils % % Basophils % % Neutrophils # (1.3-7.7) k/uL Lymphocytes # (1.0-4.8) k/uL Monocytes # (0-1.0) k/uL Eosinophils # (0-0.7) k/uL Basophils # (0-0.2) k/uL PT (10.0-12.5) sec INR (<1.2) APTT (22.0-30.0) sec Sodium (137-145) mmol/L Potassium (3.5-5.1) mmol/L Chloride (98-107) mmol/L Carbon Dioxide (22-30) mmol/L Anion Gap mmol/L BUN (7-17) mg/dL Creatinine (0.52-1.04) mg/dL Est GFR (CKD-EPI)AfAm (>60 ml/min/1.73 sqM) Est GFR (CKD-EPI)NonAf (>60 ml/min/1.73 sqM) Glucose (74-99) mg/dL Lactic Ac Sepsis Rflx Y Plasma Lactic Acid Franck 3.3 H* (0.7-2.0) mmol/L Calcium (8.4-10.2) mg/dL Total Bilirubin (0.2-1.3) mg/dL AST (14-36) U/L ALT (4-34) U/L Alkaline Phosphatase (38-126) U/L Total Protein (6.3-8.2) g/dL Albumin (3.5-5.0) g/dL Lipase (23-300) U/L Disposition Clinical Impression: SBO (small bowel obstruction), Parastomal hernia Disposition: ADMITTED IP TO THIS [facility] Condition: Stable Is patient prescribed a controlled substance at d/c from ED?: No Referrals: Chau Brennan Jr, DO [Primary Care Provider] - 1-2 days Time of Disposition: 12:51
[2024-07-06] MEDS: HYDROmorphone 0.5 MG/0.5 ML SYRINGE IVP STA ×2 (10:08→11:38)
[2024-07-06] MEDS: SODIUM CHLORIDE 0.9% 500 ML 500 ML IV ONE (10:09)
[2024-07-06] MEDS: ONDANSETRON 4 MG/2 ML VIAL IVP STA (10:19)
[2024-07-06 10:34] LABS: ALT 40 U/L (4-34); AST 34 U/L (14-36); African American GFR (CKD) 69 (>60 ml/min/1.73 sqM); Albumin 5.2 g/dL (3.5-5.0); Alkaline Phosphatase 156 U/L (38-126); Anion Gap 11 mmol/L; Blood Urea Nitrogen 14 mg/dL (7-17); Calcium 10.3 mg/dL (8.4-10.2); Carbon Dioxide 23 mmol/L (22-30); Chloride 102 mmol/L (98-107); Glucose 90 mg/dL (74-99); Lipase 94 U/L (23-300); Non-African American GFR(CKD) 60 (>60 ml/min/1.73 sqM); Potassium 3.4 mmol/L (3.5-5.1); Sodium 136 mmol/L (137-145); Total Protein 7.8 g/dL (6.3-8.2)
[2024-07-06 10:37] LABS: Basophils # (A) 0.1 k/uL (0-0.2); Basophils % (A) 1 %; Eosinophils # (A) 0.1 k/uL (0-0.7); Eosinophils % (A) 1 %; HCT 48.2 % (34.0-46.0); HGB 15.7 gm/dL (11.4-16.0); Lymphocytes # (A) 0.7 k/uL (1.0-4.8); Lymphocytes % (A) 6 %; MCH 29.8 pg (25.0-35.0); MCHC 32.5 g/dL (31.0-37.0); MCV 91.8 fL (80.0-100.0); Mean Platelet Volume 6.7; Monocytes # (A) 0.3 k/uL (0-1.0); Monocytes % (A) 2 %; Neutrophils # (A) 10.4 k/uL (1.3-7.7); Neutrophils % (A) 89 %; Platelet Count 263 k/uL (150-450); RBC 5.25 m/uL (3.80-5.40); RDW 13.6 % (11.5-15.5); WBC 11.6 k/uL (3.8-10.6)
[2024-07-06 10:49] LABS: INR 0.9 (<1.2); Prothrombin Time 10.3 sec (10.0-12.5)
--- NOTE | 2024-07-06 11:24 | CT ---
EXAMINATION TYPE: CT abdomen pelvis w con DATE OF EXAM: 07/06/2024 COMPARISON: 06/09/2020 CLINICAL INDICATION: Female, 74 years old with history of Severe pain at the colostomy site; PHH, CORNELIUS N AT COLOSTOMY SITE TECHNIQUE: Performed without Oral Contrast and with IV Contrast, patient injected with 100 mL of Isovue 300. CT DLP: 956.[address] CTDI: mGy Automated exposure control for dose reduction was used. FINDINGS: The lung bases are clear. There is surgical absence of the gallbladder. There is no biliary ductal dilatation. There is no focal mass or organomegaly involving the liver, pancreas, spleen or adrenal glands. There is no solid renal mass or hydronephrosis and there is homogeneous contrast enhancement of the r enal parenchyma. The caliber the abdominal aorta is normal is no retroperitoneal adenopathy or hemorr tamra. There are postsurgical changes in the sigmoid colon region. There is a left lower quadrant colostomy. The paul of the bowel loops within the colostomy appears thickened suggestive of acute inflammation or edema. There is no bowel obstruction. There is a 2.6 cm bilobed fat density well-circumscribed ma ss in the hepatic flexure. There is no free intraperitoneal air or fluid. No pelvic mass, free fluid, abscess or adenopathy. The osseous structures and soft tissues are intact. IMPRESSION: 1. Postsurgical changes in the sigmoid colon. 2. Left lower quadrant colostomy containing bowel with thickened edematous paul consistent with acut e inflammation or edema. There is no bowel obstruction. 3. Bilobed well-circumscribed fatty mass in the hepatic flexure [facility], , 07/06/2024 11:22 AM
[2024-07-06] MEDS ORDERED: NALOXONE 0.4 MG/ML 1 ML VIAL IV PRN (12:41)
[2024-07-06] MEDS ORDERED: ACETAMINOPHEN TAB 325 MG TAB PO PRN (12:41)
[2024-07-06 12:53] LABS: Appearance,Urine Cloudy (Clear); Bacteria,Urine Occasional /hpf; Bilirubin,Urine Negative (Negative); Blood,Urine Trace (Negative); Color,Urine Colorless; Glucose,Urine (UA) Negative (Negative); Ketones,Urine Negative (Negative); Leukocyte Esterase,Urine Large (Negative); Mucus,Urine Rare /hpf; Nitrite,Urine Negative (Negative); PH, Urine 5.5 (5.0-8.0); Protein,Urine Negative (Negative); RBC,Urine 5 /hpf (0-5); Squamous Epithelial Cell,Urine 6 /hpf (0-4); Urobilinogen,Urine <2.0 mg/dL (<2.0); WBC,Urine >182 /hpf (0-5)
--- NOTE | 2024-07-06 13:15 | P.GSCN ---
History of Present Illness Consult date: 07/06/24 History of present illness: CHIEF COMPLAINT: Abdominal pain HISTORY OF PRESENT ILLNESS: This is a 74-year-old female with a history of colostomy that was placed 4 years ago at [facility] for a reported bowel blockage. Patient reports having had 3 bowel resection surgeries in the past. Patient has been having pain around her colostomy. She does report passing a small amount of stool in her colostomy this morning. Denies any vomiting. CT scan reported left lower quadrant colostomy containing bowel with thickened edematous paul consistent with acute inflammation or edema. There is no bowel obstruction. Per chart does report the patient has a history of diverticular disease. Past surgical history includes appendectomy, bowel resections, cholecystectomy, hyst erectomy. PAST MEDICAL HISTORY: See below PAST SURGICAL HISTORY: See below MEDICATIONS: See below ALLERGIES: See below SOCIAL HISTORY: No illicit drug use. REVIEW OF SYSTEMS: CONSTITUTIONAL: Denies fever or chills. HEENT: Denies blurred vision, vision changes, or eye pain. Denies hemoptysis CARDIOVASCULAR: Denies chest pain or pressure. RESPIRATORY: No shortness of breath. GASTROINTESTINAL: See HPI for pertinent findings HEMATOLOGIC: Denies bleeding disorders. GENITOURINARY: Denies any blood in urine or increased urinary frequency. SKIN: Denies pruitis. Denies rash. PHYSICAL EXAM: VITAL SIGNS: Reviewed GENERAL: Well-developed in no acute distress. HEENT: No sclera icterus. Extraocular movements grossly intact. Moist buccal mucosa. Head is atraumatic, normocephalic. No nasal drainage. ABDOMEN: Soft. Nondistended. Patient with tenderness around the colostomy site. Evidence of parastomal hernia. Parastomal hernia unable to be reduced at this time. NEUROLOGIC: Alert and oriented. Cranial nerves II through XII grossly intact. LABORATORY DATA: WBC 11.6 Hgb 15.7 platelets 263 Sodium 136 potassium 3.4 creatinine 0.94 Lactic acid 3.3 IMAGING: CT scan abdomen pelvis reports left lower quadrant colostomy containing bowel with thickened edematous paul consistent with acute inflammation or edema. There is no bowel obstruction. Bilobed well circumcised fatty mass in the hepatic flexure. ASSESSMENT: 1. Parastomal hernia. CT scan reports left lower quadrant colostomy containing bowel with thickened edematous paul consistent with acute inflammation or edema PLAN: -Place NG tube for decompression -Surgeon will try to reduce parastomal hernia at bedside later this afternoon -Keep patient n.p.o. -Continue supportive care Physician Sewer And Drain Technician note has been reviewed by physician. Signing provider agrees with the documented findings, assessment, and plan of care. Past Medical History Past Medical History: Cancer, Chest Pain / Angina, COPD, GERD/Reflux, Hyperlipidemia, Pneumonia, Skin Disorder Additional Past Medical History / Comment(s): Diverticular disease, bowel obstructions/surgery/chronic diarrhea since, beginnings of COPD, gastritis, osteoporosis, skin cancer with removals (basal/squamous), hypokalemia, gastritis, occasional bilateral ankle edema. Colostomy bag Last Myocardial Infarction Date:: 1994 History of Any Multi-Drug Resistant Organisms: None Reported, MRSA Year Discovered:: 2010- MDRO Source:: abdomen from 2nd bowel surg Past Surgical History: Appendectomy, Bowel Resection, Cholecystectomy, Heart Catheterization, Hysterectomy, Joint Replacement, Tonsillectomy Additional Past Surgical History / Comment(s): Exporatory laparotomy, bowel resections x2/incisional hernia repair, hysterectomy then bilateral salpingoophorectomy, skin cancer removals, total R knee arthroplasty, EGD, colonoscopy, cardiac catheterizations. Past Anesthesia/Blood Transfusion Reactions: No Reported Reaction Past Psychological History: No Psychological Hx Reported Smoking Status: Former smoker Past Alcohol Use History: Occasional Past Drug Use History: None Reported - Past Family History Father Family Medical History: Coronary Artery Disease (CAD), Diabetes Mellitus, Hyperlipidemia, Hypertension Additional Family Medical History / Comment(s): CABG Mother Family Medical History: Cancer, Hyperlipidemia, Hypertension Additional Family Medical History / Comment(s): Mother survived breast cancer. Sister(s) Family Medical History: Cancer Additional Family Medical History / Comment(s): Sister is from breast cancer. Medications and Allergies Home Medications Medication Instructions Recorded Confirmed Type Oxybutynin ER [Ditropan XL] 10 mg PO DAILY 07/06/24 07/06/24 History Allergies Allergy/AdvReac Type Severity Reaction Status Date / Time No Known Allergies Allergy Verified 07/06/24 12:50 Surgical - Exam Osteopathic Statement: *. No significant issues noted on an osteopathic structural exam other than those noted in the History and Physical/Consult. Vital Signs Temp Pulse Resp BP Pulse Ox 97.5 F L 89 20 158/81 98 07/06/24 08:57 07/06/24 08:57 07/06/24 08:57 07/06/24 08:57 07/06/24 08:57 Results - Labs 07/06/24 10:07 07/06/24 10:07 Abnormal Lab Results - Last 24 Hours (Table) 07/06/24 07/06/24 07/06/24 Range/Units 10:07 10:07 10:07 WBC 11.6 H (3.8-10.6) k/uL Hct 48.2 H (34.0-46.0) % Neutrophils # 10.4 H (1.3-7.7) k/uL Lymphocytes # 0.7 L (1.0-4.8) k/uL Sodium 136 L (137-145) mmol/L Potassium 3.4 L (3.5-5.1) mmol/L Plasma Lactic Acid Franck 3.3 H* (0.7-2.0) mmol/L Calcium 10.3 H (8.4-10.2) mg/dL ALT 40 H (4-34) U/L Alkaline Phosphatase 156 H (38-126) U/L Albumin 5.2 H (3.5-5.0) g/dL Urine Appearance (Clear) Ur Specific [place] (1.001-1.035) Urine Blood (Negative) Ur Leukocyte Esterase (Negative) Urine WBC (0-5) /hpf Ur Squamous Epith Cells (0-4) /hpf Urine Bacteria (None) /hpf Urine Mucus (None) /hpf 07/06/24 Range/Units 11:57 WBC (3.8-10.6) k/uL Hct (34.0-46.0) % Neutrophils # (1.3-7.7) k/uL Lymphocytes # (1.0-4.8) k/uL Sodium (137-145) mmol/L Potassium (3.5-5.1) mmol/L Plasma Lactic Acid Franck (0.7-2.0) mmol/L Calcium (8.4-10.2) mg/dL ALT (4-34) U/L Alkaline Phosphatase (38-126) U/L Albumin (3.5-5.0) g/dL Urine Appearance Cloudy H (Clear) Ur Specific [place] 1.040 H (1.001-1.035) Urine Blood Trace H (Negative) Ur Leukocyte Esterase Large H (Negative) Urine WBC >182 H (0-5) /hpf Ur Squamous Epith Cells 6 H (0-4) /hpf Urine Bacteria Occasional H (None) /hpf Urine Mucus Rare H (None) /hpf Diabetes panel 07/06/24 Range/Units 10:07 Sodium 136 L (137-145) mmol/L Potassium 3.4 L (3.5-5.1) mmol/L Chloride 102 (98-107) mmol/L Carbon Dioxide 23 (22-30) mmol/L BUN 14 (7-17) mg/dL Creatinine 0.94 (0.52-1.04) mg/dL Glucose 90 (74-99) mg/dL Calcium 10.3 H (8.4-10.2) mg/dL AST 34 (14-36) U/L ALT 40 H (4-34) U/L Alkaline Phosphatase 156 H (38-126) U/L Total Protein 7.8 (6.3-8.2) g/dL Albumin 5.2 H (3.5-5.0) g/dL Calcium panel 07/06/24 Range/Units 10:07 Calcium 10.3 H (8.4-10.2) mg/dL Albumin 5.2 H (3.5-5.0) g/dL Pituitary panel 07/06/24 Range/Units 10:07 Sodium 136 L (137-145) mmol/L Potassium 3.4 L (3.5-5.1) mmol/L Chloride 102 (98-107) mmol/L Carbon Dioxide 23 (22-30) mmol/L BUN 14 (7-17) mg/dL Creatinine 0.94 (0.52-1.04) mg/dL Glucose 90 (74-99) mg/dL Calcium 10.3 H (8.4-10.2) mg/dL Adrenal panel 07/06/24 Range/Units 10:07 Sodium 136 L (137-145) mmol/L Potassium 3.4 L (3.5-5.1) mmol/L Chloride 102 (98-107) mmol/L Carbon Dioxide 23 (22-30) mmol/L BUN 14 (7-17) mg/dL Creatinine 0.94 (0.52-1.04) mg/dL Glucose 90 (74-99) mg/dL Calcium 10.3 H (8.4-10.2) mg/dL Total Bilirubin 1.0 (0.2-1.3) mg/dL AST 34 (14-36) U/L ALT 40 H (4-34) U/L Alkaline Phosphatase 156 H (38-126) U/L Total Protein 7.8 (6.3-8.2) g/dL Albumin 5.2 H (3.5-5.0) g/dL Assessment and Plan Assessment: 74 yo female w/ possible parastomal hernia, place ng tube for decompression. Will attempt to reduce in several hours.
[2024-07-06] MEDS: SODIUM CHLORIDE 0.9% 500 ML 500 ML IV STA (13:23)
--- NOTE | 2024-07-06 15:05 | P.HPIM ---
History of Present Illness H&P Date: 07/06/24 Chief Complaint: Left lower quadrant abdominal pain Patient complaining of left lower quadrant abdominal pain and nausea for the past day. She has a colostomy placement [facility] approximately 4 years ago for bowel obstruction. She has had multiple bowel resections. She gets the pain around the colostomy has been quite severe. Normal CT showed postsurgical changes thickened edematous paul consistent with acute inflammation or edema no bowel obstruction. Surgery seen and recommended NG tube and that they will bedside decompress her. Currently she is comfortable with her pain medications controlling her symptoms. She denies any chest pain pressure or shortness of breath. Review of Systems All systems: negative Past Medical History Past Medical History: Cancer, Chest Pain / Angina, COPD, GERD/Reflux, Hyperlipidemia, Pneumonia, Skin Disorder Additional Past Medical History / Comment(s): Diverticular disease, bowel obstructions/surgery/chronic diarrhea since, beginnings of COPD, gastritis, osteoporosis, skin cancer with removals (basal/squamous), hypokalemia, gastritis, occasional bilateral ankle edema. Colostomy bag Last Myocardial Infarction Date:: 1994 History of Any Multi-Drug Resistant Organisms: None Reported, MRSA Date of last positivie culture/infection: 2010- MDRO Source:: abdomen from 2nd bowel surg Past Surgical History: Appendectomy, Bowel Resection, Cholecystectomy, Heart Catheterization, Hysterectomy, Joint Replacement, Tonsillectomy Additional Past Surgical History / Comment(s): Exporatory laparotomy, bowel resections x2/incisional hernia repair, hysterectomy then bilateral salpingoophorectomy, skin cancer removals, total R knee arthroplasty, EGD, colonoscopy, cardiac catheterizations. Past Anesthesia/Blood Transfusion Reactions: No Reported Reaction Past Psychological History: No Psychological Hx Reported Smoking Status: Former smoker Past Alcohol Use History: Occasional Past Drug Use History: None Reported - Past Family History Father Family Medical History: Coronary Artery Disease (CAD), Diabetes Mellitus, Hyperlipidemia, Hypertension Additional Family Medical History / Comment(s): CABG Mother Family Medical History: Cancer, Hyperlipidemia, Hypertension Additional Family Medical History / Comment(s): Mother survived breast cancer. Sister(s) Family Medical History: Cancer Additional Family Medical History / Comment(s): Sister is from breast cancer. Medications and Allergies Home Medications Medication Instructions Recorded Confirmed Type Oxybutynin ER [Ditropan XL] 10 mg PO DAILY 07/06/24 07/06/24 History Allergies Allergy/AdvReac Type Severity Reaction Status Date / Time No Known Allergies Allergy Verified 07/06/24 12:50 Physical Exam Vitals: Vital Signs Temp Pulse Resp BP Pulse Ox 07/06/24 11:32 94 19 146/69 95 07/06/24 08:57 97.5 F L 89 20 158/81 98 Intake and Output 07/06/24 07/06/24 07/06/24 06:59 14:59 22:59 Other: Weight 59.874 kg GENERAL: Elderly female in no acute distress. HEAD: Atraumatic, normocephalic. EYES: Pupils equal round and reactive to light, extraocular movements intact, sclera anicteric, conjunctiva are normal. ENT:nares patent, oropharynx clear without exudates. Moist mucous membranes. NECK: Normal range of motion, supple without lymphadenopathy or JVD, no thyromegaly LUNGS: Breath sounds clear to auscultation bilaterally and equal. No wheezes rales or rhonchi. HEART: Regular rate and rhythm without murmurs, rubs or gallops.S1S2 Normal ABDOMEN: Soft, there is left lower quadrant tenderness. Scant bowel sounds, colostomy bag in place with no discharge in it at this time. EXTREMITIES: Normal range of motion, no pitting or edema. No clubbing or cyanosis. NEUROLOGICAL: Cranial nerves II through XII grossly intact. Normal speech, normal gait. PSYCH: Normal mood, normal affect. SKIN: Warm, Dry, normal turgor, no rashes or lesions noted. Results CBC & Chem 7: 07/07/24 09:05 07/07/24 09:05 Labs: Abnormal Lab Results - Last 24 Hours (Table) 07/06/24 07/06/24 07/06/24 Range/Units 10:07 10:07 10:07 WBC 11.6 H (3.8-10.6) k/uL Hct 48.2 H (34.0-46.0) % Neutrophils # 10.4 H (1.3-7.7) k/uL Lymphocytes # 0.7 L (1.0-4.8) k/uL Sodium 136 L (137-145) mmol/L Potassium 3.4 L (3.5-5.1) mmol/L Plasma Lactic Acid Franck 3.3 H* (0.7-2.0) mmol/L Calcium 10.3 H (8.4-10.2) mg/dL ALT 40 H (4-34) U/L Alkaline Phosphatase 156 H (38-126) U/L Albumin 5.2 H (3.5-5.0) g/dL Urine Appearance (Clear) Ur Specific [place] (1.001-1.035) Urine Blood (Negative) Ur Leukocyte Esterase (Negative) Urine WBC (0-5) /hpf Ur Squamous Epith Cells (0-4) /hpf Urine Bacteria (None) /hpf Urine Mucus (None) /hpf 07/06/24 Range/Units 11:57 WBC (3.8-10.6) k/uL Hct (34.0-46.0) % Neutrophils # (1.3-7.7) k/uL Lymphocytes # (1.0-4.8) k/uL Sodium (137-145) mmol/L Potassium (3.5-5.1) mmol/L Plasma Lactic Acid Franck (0.7-2.0) mmol/L Calcium (8.4-10.2) mg/dL ALT (4-34) U/L Alkaline Phosphatase (38-126) U/L Albumin (3.5-5.0) g/dL Urine Appearance Cloudy H (Clear) Ur Specific [place] 1.040 H (1.001-1.035) Urine Blood Trace H (Negative) Ur Leukocyte Esterase Large H (Negative) Urine WBC >182 H (0-5) /hpf Ur Squamous Epith Cells 6 H (0-4) /hpf Urine Bacteria Occasional H (None) /hpf Urine Mucus Rare H (None) /hpf Chest x-ray: report reviewed CT scan - abdomen: report reviewed Thrombosis Risk Factor Assmnt - DVT/VTE Prophylaxis DVT/VTE Prophylaxis: Mechanical Prophylaxis ordered Assessment and Plan (1) Abdominal pain Current Visit: Yes Status: Acute Code(s): R10.9 - UNSPECIFIED ABDOMINAL PAIN SNOMED Code(s): 67041564 (2) OAB (overactive bladder) Current Visit: Yes Status: Acute Code(s): N32.81 - OVERACTIVE BLADDER SNOMED Code(s): 726960120 (3) Parastomal hernia Current Visit: Yes Status: Acute Code(s): K43.5 - PARASTOMAL HERNIA WITHOUT OBSTRUCTION OR GANGRENE SNOMED Code(s): 956238919 (4) SBO (small bowel obstruction) Current Visit: Yes Status: Acute Code(s): K56.609 - UNSP INTESTNL OBST, UNSP TO PARTIAL VERSUS COMPLETE OBST SNOMED Code(s): 821991396
[2024-07-06] MEDS: HYDROmorphone 0.5 MG/0.5 ML SYRINGE IVP PRN (17:03)
[2024-07-06] MEDS: SODIUM CHLORIDE 0.9% 1,000 ML IV SCH (17:04)
--- NOTE | 2024-07-06 17:35 | XR ---
EXAMINATION TYPE: XR chest 1V portable DATE OF EXAM: 07/06/2024 5:10 PM COMPARISON: Chest radiographs from 06/11/2019 CLINICAL INDICATION: Female, 74 years old with history of NG tube; TECHNIQUE: XR chest 1V portable Frontal view of the chest. FINDINGS: Lungs/Pleura: There is no evidence of pleural effusion, focal consolidation, or pneumothorax. Pulmonary vascularity: Unremarkable. Heart/mediastinum: Cardiomediastinal silhouette is unremarkable. Musculoskeletal: No acute osseous pathology. Nasogastric tube terminating in the upper abdomen. IMPRESSION: No acute cardiopulmonary disease/process. [facility], , 07/06/2024 5:33 PM
--- NOTE | 2024-07-06 18:48 | XR ---
EXAMINATION TYPE: XR chest 1V confirm line plcmt DATE OF EXAM: 07/06/2024 6:03 PM COMPARISON: Chest radiographs from 07/06/2024. CLINICAL INDICATION: Female, 74 years old with history of ng tube; TECHNIQUE: XR chest 1V confirm line plcmt Frontal view of the chest. FINDINGS: Lungs/Pleura: There is no evidence of pleural effusion, focal consolidation, or pneumothorax. Pulmonary vascularity: Unremarkable. Heart/mediastinum: Cardiomediastinal silhouette is unremarkable. Musculoskeletal: No acute osseous pathology. Nasogastric tube side-port near the gastroesophageal junction. IMPRESSION: Nasogastric tube side-port near the gastric esophageal junction advancement of 7 cm recommended for i deal placement.. [facility], , 07/06/2024 6:46 PM
[2024-07-06] MEDS ORDERED: oxyCODONE-APAP 5-325MG 1 EACH TAB PO PRN (21:04)
[2024-07-06] MEDS: ONDANSETRON 4 MG/2 ML VIAL IVP PRN (22:21)
[2024-07-07] MEDS: PANTOPRAZOLE 40 MG/10 ML VIAL IV SCH (08:18)
--- NOTE | 2024-07-07 09:36 | XR ---
EXAMINATION TYPE: XR chest 1V portable DATE OF EXAM: 07/07/2024 9:24 AM COMPARISON: Chest radiograph from one day prior. CLINICAL INDICATION: Female, 74 years old with history of abd pain; [facility] TECHNIQUE: XR chest 1V portable Frontal view of the chest. FINDINGS: Lungs/Pleura: Prominent interstitial lung markings are seen scattered throughout the lungs. No eviden ce of focal consolidation, pneumothorax or pleural effusion. Pulmonary vascularity: Unremarkable. Heart/mediastinum: Cardiomediastinal silhouette is unremarkable. Musculoskeletal: No acute osseous pathology. Other findings: None Lines/Tubes: Nasogastric tube with its distal tip and side-port projecting under the diaphragm. IMPRESSION: Appropriate placement of the nasogastric tube. Similar Interstitial prominence of the lungs. [facility], , 07/07/2024 9:34 AM
--- NOTE | 2024-07-07 09:38 | XR ---
EXAMINATION TYPE: XR abdomen 1V DATE OF EXAM: 07/07/2024 9:24 AM COMPARISON: 04/17/2024 CLINICAL INDICATION: Female, 74 years old with history of abd pain; [facility] TECHNIQUE: One radiographic view of the abdomen was obtained. FINDINGS: Excreted IV contrast the urinary bladder. Surgical clips project over the lower spine. Naso gastric tube present. Severe degeneration changes of the hips with joint space and osteophyte formati on right greater than left. The bowel gas pattern is nonspecific without dilated loops of small or la rge bowel. . Fecal material and gas are demonstrated throughout the colon and rectum. There is no katlyn dence for organomegaly or pneumoperitoneum. The osseous structures are intact. No abnormal calcific ations are present. IMPRESSION: Nonspecific bowel gas pattern without radiographic evidence for acute process. [facility], , 07/07/2024 9:36 AM
[2024-07-07 09:41] LABS: Basophils % (A) 0 %; Eosinophils # (A) 0.1 k/uL (0-0.7); Eosinophils % (A) 1 %; HCT 38.8 % (34.0-46.0); HGB 12.8 gm/dL (11.4-16.0); Lymphocytes # (A) 0.7 k/uL (1.0-4.8); Lymphocytes % (A) 7 %; MCH 30.2 pg (25.0-35.0); MCV 91.6 fL (80.0-100.0); Mean Platelet Volume 7.2; Monocytes # (A) 0.5 k/uL (0-1.0); Monocytes % (A) 6 %; Neutrophils # (A) 7.9 k/uL (1.3-7.7); Neutrophils % (A) 85 %; Platelet Count 202 k/uL (150-450); RBC 4.24 m/uL (3.80-5.40); RDW 13.7 % (11.5-15.5); WBC 9.3 k/uL (3.8-10.6)
[2024-07-07 09:45] LABS: ALT 26 U/L (4-34); AST 19 U/L (14-36); African American GFR (CKD) 85 (>60 ml/min/1.73 sqM); Albumin 3.4 g/dL (3.5-5.0); Albumin/Globulin Ratio 1.6; Alkaline Phosphatase 98 U/L (38-126); Anion Gap 6 mmol/L; Bilirubin,Unconjugated 0.8 mg/dL (0.0-1.1); Blood Urea Nitrogen 16 mg/dL (7-17); Calcium 8.4 mg/dL (8.4-10.2); Carbon Dioxide 24 mmol/L (22-30); Chloride 107 mmol/L (98-107); Globulin 2.1 g/dL; Glucose 111 mg/dL (74-99); Non-African American GFR(CKD) 74 (>60 ml/min/1.73 sqM); Potassium 3.4 mmol/L (3.5-5.1); Sodium 137 mmol/L (137-145); Total Protein 5.5 g/dL (6.3-8.2)
--- NOTE | 2024-07-07 14:13 | P.PN ---
Subjective Patient was seen evaluated on the fourth floor. She has an NG tube in place. There is no but 100 cc out per staff for the past 8-hour shifts. There is a small amount in her colostomy bag. She denies any chest pains pressure shortness of breath. Just ongoing abdominal pain. She reports surgery not bedside decompressed here. Vital signs are stable. She is afebrile. Laboratory studies show normal CBC, chemistries are essentially normal with a slightly low potassium 3.4. Urinalysis shows large leukocytes but appears to be contaminated specimen. Family is at bedside. Objective - Vital Signs Vital signs: Vital Signs Temp 97.0 F L 07/07/24 07:27 Pulse 67 07/07/24 07:27 Resp 20 07/07/24 07:27 BP 117/68 07/07/24 07:27 Pulse Ox 97 07/07/24 07:27 FiO2 Intake & Output 07/06/24 07/07/24 07/07/24 18:59 06:59 18:59 Output Total 250 Balance -250 Weight 59.874 kg Output: Gastric Drainage 250 Other: Voiding Method Toilet # Voids 1 2 1 - Exam General: The patient is awake and alert, in no distress, NG tube in place Neck: The neck is supple, there is no thyromegaly, lymphadenopathy, tenderness or JVD. Cardiovascular: S1S2 is normal, There is a regular rate and rhythm. No murmur, rub or gallop is appreciated. Respiratory: Lungs are clear to auscultation bilaterally, respirations are non-labored, breath sounds are equal. Gastrointestinal: Soft, left lower quadrant abdominal pain. Bowel sounds seem slightly improved compared to my previous examination. There is a small amount of liquid feces in her colostomy bag. Musculoskeletal: Normal ROM, no tenderness, There is no pedal edema. There is no calf tenderness or swelling. No cords were appreciated. Neurological: CN II-XII intact, there are no obvious motor or sensory deficits. Coordination appears grossly intact. Speech is normal. Skin: Skin is warm and dry and no rashes or lesions are noted. - Labs CBC & Chem 7: 07/07/24 09:05 07/07/24 09:05 Labs: Abnormal Lab Results - Last 24 Hours (Table) 07/06/24 07/07/24 07/07/24 Range/Units 17:26 09:05 09:05 Neutrophils # 7.9 H (1.3-7.7) k/uL Lymphocytes # 0.7 L (1.0-4.8) k/uL Potassium 3.4 L (3.5-5.1) mmol/L Glucose 111 H (74-99) mg/dL Plasma Lactic Acid Franck 2.5 H* (0.7-2.0) mmol/L Total Protein 5.5 L (6.3-8.2) g/dL Albumin 3.4 L (3.5-5.0) g/dL Assessment and Plan (1) Abdominal pain Current Visit: Yes Status: Acute Code(s): R10.9 - UNSPECIFIED ABDOMINAL PAIN SNOMED Code(s): 90738860 (2) OAB (overactive bladder) Current Visit: Yes Status: Acute Code(s): N32.81 - OVERACTIVE BLADDER SNOMED Code(s): 973478655 (3) Parastomal hernia Current Visit: Yes Status: Acute Code(s): K43.5 - PARASTOMAL HERNIA WITHOUT OBSTRUCTION OR GANGRENE SNOMED Code(s): 195481844 (4) SBO (small bowel obstruction) Current Visit: Yes Status: Acute Code(s): K56.609 - UNSP INTESTNL OBST, UNSP TO PARTIAL VERSUS COMPLETE OBST SNOMED Code(s): 275395056 Plan: She will continue on her pain medications of Dilaudid 0.5 every 3, will add 1 mg every 4 for more severe pain. Can her on Zofran. Protonix, and IV fluids. Wait on further recommendations of surgery, repeat labs in a.m., reevaluate in the next 24 hours
[2024-07-07] MEDS ORDERED: Potassium Replacement Protocol 1 EACH MISC MISCELLANE PRN (14:14)
[2024-07-07] MEDS: HYDROmorphone 1 MG/ML 1 ML SYRINGE IVP PRN (14:22)
--- NOTE | 2024-07-07 16:24 | P.PN ---
Subjective Progress Note Date: 07/07/24 Patient seen and evaluated at bedside. Patient still complaining of parastomal abdominal pain, denies nausea or vomiting. Patient denies having appetitite. Objective - Vital Signs Vital signs: Vital Signs Temp 97.9 F 07/07/24 13:11 Pulse 70 07/07/24 13:11 Resp 18 07/07/24 13:11 BP 120/72 07/07/24 13:11 Pulse Ox 96 07/07/24 13:11 FiO2 Intake & Output 07/06/24 07/07/24 07/07/24 18:59 06:59 18:59 Output Total 250 Balance -250 Weight 59.874 kg Output: Gastric Drainage 250 Other: Voiding Method Toilet # Voids 1 2 1 - Exam gen: nad cv: rrr pul: non labored breathing abd: soft, non distended, tender around stomal site, stoma pink/patent/producing - Labs CBC & Chem 7: 07/07/24 09:05 07/07/24 09:05 Labs: Abnormal Lab Results - Last 24 Hours (Table) 07/06/24 07/07/24 07/07/24 Range/Units 17:26 09:05 09:05 Neutrophils # 7.9 H (1.3-7.7) k/uL Lymphocytes # 0.7 L (1.0-4.8) k/uL Potassium 3.4 L (3.5-5.1) mmol/L Glucose 111 H (74-99) mg/dL Plasma Lactic Acid Franck 2.5 H* (0.7-2.0) mmol/L Total Protein 5.5 L (6.3-8.2) g/dL Albumin 3.4 L (3.5-5.0) g/dL Assessment and Plan Assessment: 74 yo female w/ 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 no surgical intervention. Time with Patient: Less than 30
[2024-07-07] MEDS: POTASSIUM CHLORIDE 10 MEQ in WATER FOR INJECTION 1 100ML.BAG IVPB SCH (16:27)
[2024-07-08 10:02] LABS: ALT 20 U/L (8-44); AST 14 U/L (13-35); Albumin 3.4 g/dL (3.8-4.9); Alkaline Phosphatase 100 U/L (41-126); BUN/Creat Ratio 17.25 Ratio (12.00-20.00); Bilirubin, Conjugated 0.42 mg/dL (0.20-0.40); Bilirubin,Unconjugated 0.58 mg/dL (0.20-1.00); Blood Urea Nitrogen 13.8 mg/dL (9.0-27.0); Calcium 8.4 mg/dL (8.7-10.3); Carbon Dioxide 20.9 mmol/L (21.6-31.8); Chloride 109 mmol/L (96-109); Globulin 1.7 g/dL (1.6-3.3); Glucose 83 mg/dL (70-110); Potassium 3.8 mmol/L (3.5-5.5); Sodium 140 mmol/L (135-145); Total Protein 5.1 g/dL (6.2-8.2)
[2024-07-08] MEDS: metroNIDAZOLE-NS PMX 500 MG in SALINE 1 100ML.BAG IVPB SCH (12:17)
--- NOTE | 2024-07-08 12:31 | P.PN ---
Subjective Patient seen and evaluated at bedside. Patient patient states that her abdominal pain has improved around her ostomy. Denies nausea or vomiting at this time. Is tolerating a clear liquid diet Objective - Vital Signs Vital signs: Vital Signs Temp 98.1 F 07/08/24 07:16 Pulse 72 07/08/24 07:16 Resp 18 07/08/24 07:16 BP 131/56 07/08/24 07:16 Pulse Ox 96 07/08/24 07:16 FiO2 Intake & Output 07/07/24 07/08/24 07/08/24 18:59 06:59 18:59 Other: Voiding Method Toilet # Voids 3 3 1 - Exam gen: nad cv: rrr pul: non labored breathing abd: soft, non distended, tender around stomal site, stoma pin k/patent/producingminimal output - Labs CBC & Chem 7: 07/07/24 09:05 07/08/24 05:36 Labs: Abnormal Lab Results - Last 24 Hours (Table) 07/08/24 Range/Units 05:36 Carbon Dioxide 20.9 L (21.6-31.8) mmol/L Calcium 8.4 L (8.7-10.3) mg/dL Conjugated Bilirubin 0.42 H (0.20-0.40) mg/dL Total Protein 5.1 L (6.2-8.2) g/dL Albumin 3.4 L (3.8-4.9) g/dL Assessment and Plan Assessment: 74 yo female w/ 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 She is currently tolerating a clear liquid diet. Most likely we can advance to a regular diet tomorrow 07/09. I am confident that she would most likely not need surgery during this hospital visit and that we should continue the IV antibiotics. Time with Patient: Less than 30
--- NOTE | 2024-07-08 12:35 | P.PN ---
Subjective Patient was seen evaluated on the fourth floor. She has an NG tube in place. There is no but 100 cc out per staff for the past 8-hour shifts. There is a small amount in her colostomy bag. She denies any chest pains pressure shortness of breath. Just ongoing abdominal pain. She reports surgery not bedside decompressed here. Vital signs are stable. She is afebrile. Laboratory studies show normal CBC, chemistries are essentially normal with a slightly low potassium 3.4. Urinalysis shows large leukocytes but appears to be contaminated specimen. Family is at bedside. July 08, 2024: Patient is feeling much better. NG tube is out. She is tolerating clear liquid diet. Her pain is much improved. Small amount in her colostomy bag currently. No chest pain pressure shortness of breath nausea or vomiting. She remains on ceftriaxone and Flagyl at this point. Has hydromorphone for pain. Objective - Vital Signs Vital signs: Vital Signs Temp 98.1 F 07/08/24 07:16 Pulse 72 07/08/24 07:16 Resp 18 07/08/24 07:16 BP 131/56 07/08/24 07:16 Pulse Ox 96 07/08/24 07:16 FiO2 Intake & Output 07/07/24 07/08/24 07/08/24 18:59 06:59 18:59 Other: Voiding Method Toilet # Voids 3 3 1 - Exam General: The patient is awake and alert, in no distress, NG tube has been removed. Neck: The neck is supple, there is no thyromegaly, lymphadenopathy, tenderness or JVD. Cardiovascular: S1S2 is normal, There is a regular rate and rhythm. No murmur, rub or gallop is appreciated. Respiratory: Lungs are clear to auscultation bilaterally, respirations are non-labored, breath sounds are equal. Gastrointestinal: Soft, bowel sounds are. More normal. He has much less tenderness in left lower quadrant around her ostomy site. Musculoskeletal: Normal ROM, no tenderness, There is no pedal edema. There is no calf tenderness or swelling. No cords were appreciated. Neurological: CN II-XII intact, there are no obvious motor or sensory deficits. Coordination appears grossly intact. Speech is normal. Skin: Skin is warm and dry and no rashes or lesions are noted. - Labs CBC & Chem 7: 07/07/24 09:05 07/08/24 05:36 Labs: Abnormal Lab Results - Last 24 Hours (Table) 07/08/24 Range/Units 05:36 Carbon Dioxide 20.9 L (21.6-31.8) mmol/L Calcium 8.4 L (8.7-10.3) mg/dL Conjugated Bilirubin 0.42 H (0.20-0.40) mg/dL Total Protein 5.1 L (6.2-8.2) g/dL Albumin 3.4 L (3.8-4.9) g/dL Assessment and Plan (1) Abdominal pain Current Visit: Yes Status: Acute Code(s): R10.9 - UNSPECIFIED ABDOMINAL PAIN SNOMED Code(s): 14843075 (2) OAB (overactive bladder) Current Visit: Yes Status: Acute Code(s): N32.81 - OVERACTIVE BLADDER SNOMED Code(s): 251537430 (3) Parastomal hernia Current Visit: Yes Status: Acute Code(s): K43.5 - PARASTOMAL HERNIA WITHOUT OBSTRUCTION OR GANGRENE SNOMED Code(s): 891115722 (4) SBO (small bowel obstruction) Current Visit: Yes Status: Acute Code(s): K56.609 - UNSP INTESTNL OBST, UNSP TO PARTIAL VERSUS COMPLETE OBST SNOMED Code(s): 995894535 (5) Diverticulitis Current Visit: Yes Status: Acute Code(s): K57.92 - DVTRCLI OF INTEST, PART UNSP, W/O PERF OR ABSCESS W/O BLEED SNOMED Code(s): 588153325 Plan: She will continue on her pain medications of Dilaudid 0.5 every 3, will add 1 mg every 4 for more severe pain. Zofran prn for nausea. Protonix, and IV fluids. Wait on further recommendations of surgery, repeat labs in a.m.,clears, abx per surgery, reevaluate in the next 24 hours
[2024-07-08 13:22] LABS: Basophils # (A) 0.03 X 10*3/uL (0.00-0.10); Basophils % (A) 0.4 %; Eosinophils # (A) 0.14 X 10*3/uL (0.04-0.35); Eosinophils % (A) 1.9 %; HCT 36.5 % (37.2-46.3); HGB 11.5 g/dL (12.0-15.0); Lymphocytes # (A) 0.96 X 10*3/uL (0.90-5.00); Lymphocytes % (A) 13.2 %; MCH 29.6 pg (27.0-32.0); MCHC 31.5 g/dL (32.0-37.0); MCV 94.1 FL (80.0-97.0); Mean Platelet Volume 9.9 FL (9.5-12.2); Monocytes # (A) 0.65 X 10*3/uL (0.20-1.00); Monocytes % (A) 8.9 %; NRBC Per 100 WBC 0 X 10*3/uL (0.00-0.01); Neutrophils # (A) 5.49 X 10*3/uL (1.80-7.70); Neutrophils % (A) 75.3 %; Platelet Count 178 X 10*3/uL (140-440); RBC 3.88 X 10*6/uL (4.10-5.20); RDW 14.4 % (11.5-14.5); WBC 7.29 X 10*3/uL (4.50-10.00)
[2024-07-09 08:52] LABS: BUN/Creat Ratio 12.57 Ratio (12.00-20.00); Blood Urea Nitrogen 8.8 mg/dL (9.0-27.0); Calcium 7.9 mg/dL (8.7-10.3); Carbon Dioxide 19.5 mmol/L (21.6-31.8); Chloride 111 mmol/L (96-109); Glucose 99 mg/dL (70-110); Potassium 3.7 mmol/L (3.5-5.5); Sodium 142 mmol/L (135-145)
[2024-07-09] MEDS: PROCHLORPERAZINE INJ 10 MG/2 ML VIAL IVP PRN (10:32)
--- NOTE | 2024-07-09 11:01 | P.PN ---
Subjective Progress Note Date: 07/09/24 SURGICAL PROGRESS NOTE CHIEF COMPLAINT: abdominal pain HISTORY OF PRESENT ILLNESS: Patient reports her abdominal pain has improved. She does have nausea. No vomiting. She is having stool through her colostomy. Afebrile. WBC 7.29. Currently on a clear liquid diet. Reports decreased appetite. PHYSICAL EXAM: VITAL SIGNS: Reviewed. GENERAL: Well-developed in no acute distress. ABDOMEN: Soft. Nondistended. Nontender. Small amount of stool in the colostomy bag. stoma pink NEUROLOGIC: Alert and oriented. Cranial nerves II through XII grossly intact. ASSESSMENT: 1. 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 Zofran frequency adjusted to every 6 hours -Encourage patient to increase activity level Physician Client Support Analyst note has been reviewed by physician. Signing provider agrees with the documented findings, assessment, and plan of care. Attestation Patient seen and examined at bedside. States abdominal pain is improved with some sensitivity to the left of her ostomy site. She states her bowel distentio n is significantly improved. Having nausea this morning and Compazine was added. Continue clear liquid and advance after nausea has resolved. Calvin Lopez, DO Objective - Vital Signs Vital signs: Vital Signs Temp 98 F 07/09/24 06:56 Pulse 58 L 07/09/24 06:56 Resp 18 07/09/24 06:56 BP 120/56 07/09/24 06:56 Pulse Ox 96 07/09/24 06:56 FiO2 Intake & Output 07/08/24 07/09/24 07/09/24 18:59 06:59 18:59 Output Total 520 Balance -520 Output: Urine 520 Other: Voiding Method Toilet Toilet # Voids 1 - Labs CBC & Chem 7: 07/09/24 05:20 07/09/24 05:20 Labs: Abnormal Lab Results - Last 24 Hours (Table) 07/08/24 07/09/24 Range/Units 05:45 05:20 RBC 3.88 L (4.10-5.20) X 10*6/uL Hgb 11.5 L (12.0-15.0) g/dL Hct 36.5 L (37.2-46.3) % MCHC 31.5 L (32.0-37.0) g/dL Chloride 111 H (96-109) mmol/L Carbon Dioxide 19.5 L (21.6-31.8) mmol/L BUN 8.8 L (9.0-27.0) mg/dL Calcium 7.9 L (8.7-10.3) mg/dL
[2024-07-09 12:41] LABS: Basophils # (A) 0.03 X 10*3/uL (0.00-0.10); Basophils % (A) 0.6 %; Eosinophils # (A) 0.13 X 10*3/uL (0.04-0.35); Eosinophils % (A) 2.6 %; HGB 10.7 g/dL (12.0-15.0); Lymphocytes # (A) 0.69 X 10*3/uL (0.90-5.00); Lymphocytes % (A) 13.9 %; MCH 30.4 pg (27.0-32.0); MCHC 30.6 g/dL (32.0-37.0); MCV 99.4 FL (80.0-97.0); Mean Platelet Volume 9.7 FL (9.5-12.2); Monocytes # (A) 0.55 X 10*3/uL (0.20-1.00); Monocytes % (A) 11.1 %; NRBC Per 100 WBC 0 X 10*3/uL (0.00-0.01); Neutrophils # (A) 3.53 X 10*3/uL (1.80-7.70); Neutrophils % (A) 71.4 %; Platelet Count 172 X 10*3/uL (140-440); RBC 3.52 X 10*6/uL (4.10-5.20); RDW 14.5 % (11.5-14.5); WBC 4.95 X 10*3/uL (4.50-10.00)
[2024-07-09] MEDS: ONDANSETRON 4 MG/2 ML VIAL IVP PRN (12:50)
--- NOTE | 2024-07-09 18:16 | P.PN ---
Subjective Progress Note Date: 07/09/24 Patient was seen evaluated on the fourth floor. She has an NG tube in place. There is no but 100 cc out per staff for the past 8-hour shifts. There is a small amount in her colostomy bag. She denies any chest pains pressure shortness of breath. Just ongoing abdominal pain. She reports surgery not be dside decompressed here. Vital signs are stable. She is afebrile. Laboratory studies show normal CBC, chemistries are essentially normal with a slightly low potassium 3.4. Urinalysis shows large leukocytes but appears to be contaminated specimen. Family is at bedside. July 08, 2024: Patient is feeling much better. NG tube is out. She is tolerating clear liquid diet. Her pain is much improved. Small amount in her colostomy bag currently. No chest pain pressure shortness of breath nausea or vomiting. She remains on ceftriaxone and Flagyl at this point. Has hydromorphone for pain. 07/09/2024 NG tube discontinued yesterday. Complains of nausea, no emesis and decreased appetite. Diet not advanced, remains on clear liquid diet. Zofran frequency increased with the addition of Compazine as per general surgery. Afebrile, normal WBC. Renal function stable. Objective - Vital Signs Vital signs: Vital Signs Temp 98 F 07/09/24 13:08 Pulse 69 07/09/24 13:08 Resp 18 07/09/24 13:08 BP 129/67 07/09/24 13:08 Pulse Ox 95 07/09/24 13:08 FiO2 Intake & Output 07/08/24 07/09/24 07/09/24 18:59 06:59 18:59 Output Total 520 Balance -520 Output: Urine 520 Other: Voiding Method Toilet Toilet # Voids 1 - Exam General: The patient is awake and alert, in no distress, sitting up in bed. Neck: The neck is supple,no JVD. Cardiovascular: S1S2 is normal, There is a regular rate and rhythm. No murmur, rub or gallop is appreciated. Respiratory: Unlabored, equal air entry, lungs are clear to auscultation Gastrointestinal: Soft, decreased tenderness in left lower quadrant -left of her ostomy site. Small amount of stool in ostomy bag. positive bowel sounds Extremities: Normal ROM, no tenderness,no pedal edema. no calf tenderness or swelling. Neurological: CN II-XII intact,no focal deficits. Skin: Skin is warm and dry, no rashes are noted. - Labs CBC & Chem 7: 07/09/24 05:20 07/09/24 05:20 Labs: Abnormal Lab Results - Last 24 Hours (Table) 07/09/24 07/09/24 Range/Units 05:20 05:20 RBC 3.52 L (4.10-5.20) X 10*6/uL Hgb 10.7 L (12.0-15.0) g/dL Hct 35.0 L (37.2-46.3) % MCV 99.4 H (80.0-97.0) FL MCHC 30.6 L (32.0-37.0) g/dL Lymphocytes # 0.69 L (0.90-5.00) X 10*3/uL Chloride 111 H (96-109) mmol/L Carbon Dioxide 19.5 L (21.6-31.8) mmol/L BUN 8.8 L (9.0-27.0) mg/dL Calcium 7.9 L (8.7-10.3) mg/dL Assessment and Plan Assessment: (1) Abdominal pain Current Visit: Yes Status: Acute Code(s): R10.9 - UNSPECIFIED ABDOMINAL PAIN SNOMED Code(s): 56790879 (2) OAB (overactive bladder) Current Visit: Yes Status: Acute Code(s): N32.81 - OVERACTIVE BLADDER SNOMED Code(s): 030802125 (3) Parastomal hernia Current Visit: Yes Status: Acute Code(s): K43.5 - PARASTOMAL HERNIA WITHOUT OBSTRUCTION OR GANGRENE SNOMED Code(s): 894553703 (4) SBO (small bowel obstruction) Current Visit: Yes Status: Acute Code(s): K56.609 - UNSP INTESTNL OBST, UNSP TO PARTIAL VERSUS COMPLETE OBST SNOMED Code(s): 722843497 (5) Diverticulitis Current Visit: Yes Status: Acute Code(s): K57.92 - DVTRCLI OF INTEST, PART UNSP, W/O PERF OR ABSCESS W/O BLEED SNOMED Code(s): 941362235 (6) 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 Maintain ceftriaxone, Flagyl, antiemetics. Pain management. PPI in place for GI prophylaxis. diet advancement as per general surgery. increase activity as tolerated. aggressive pulmonary toileting with incentive spirometer ordered.Close monitoring of coags, electrolytes and renal function with repeat labs ordered for a.m. The impression and plan of care has been dictated as directed. : I performed a history and examination of this patient, discussed the same with the dictator. I agree with the dictator's note ,documented as a scribe. Any additional findings or plans will be noted.
[2024-07-10 08:53] LABS: Blood Urea Nitrogen 7.8 mg/dL (9.0-27.0); Carbon Dioxide 17.8 mmol/L (21.6-31.8); Chloride 112 mmol/L (96-109); Glucose 75 mg/dL (70-110); Potassium 3.5 mmol/L (3.5-5.5); Sodium 142 mmol/L (135-145)
[2024-07-10 09:24] LABS: Basophils # (A) 0.03 X 10*3/uL (0.00-0.10); Basophils % (A) 0.6 %; Eosinophils # (A) 0.15 X 10*3/uL (0.04-0.35); Eosinophils % (A) 3.1 %; HCT 33.4 % (37.2-46.3); HGB 10.8 g/dL (12.0-15.0); Lymphocytes # (A) 0.88 X 10*3/uL (0.90-5.00); Lymphocytes % (A) 18.4 %; MCH 29.5 pg (27.0-32.0); MCHC 32.3 g/dL (32.0-37.0); MCV 91.3 FL (80.0-97.0); Mean Platelet Volume 10.2 FL (9.5-12.2); Monocytes # (A) 0.62 X 10*3/uL (0.20-1.00); NRBC Per 100 WBC 0 X 10*3/uL (0.00-0.01); Neutrophils # (A) 3.07 X 10*3/uL (1.80-7.70); Neutrophils % (A) 64.3 %; Platelet Count 168 X 10*3/uL (140-440); RBC 3.66 X 10*6/uL (4.10-5.20); RDW 13.9 % (11.5-14.5); WBC 4.78 X 10*3/uL (4.50-10.00)
--- NOTE | 2024-07-10 13:35 | P.PN ---
Subjective Progress Note Date: 07/10/24 SURGICAL PROGRESS NOTE CHIEF COMPLAINT: abdominal pain HISTORY OF PRESENT ILLNESS: Patient reports she is feeling better. Her nausea is improving. No vomiting. Her ostomy is functioning. Afebrile. WBC 4.78 PHYSICAL EXAM: VITAL SIGNS: Reviewed. GENERAL: Well-developed in no acute distress. ABDOMEN: Soft. Nondistended. minimal tenderness with palpation to the left of the stoma. Small amount of stool in the colostomy bag. stoma pink NEUROLOGIC: Alert and oriented. Cranial nerves II through XII grossly intact. ASSESSMENT: 1. Possible stomal colitis PLAN: -Diet was advanced to full liquids at lunch. Patient did tolerate the diet. Patient can be discharged from surgical standpoint. Recommend Ceftin and Flagyl for 7 more days. And patient can advance diet as tolerated at home. Physician Engineering Design Manager note has been reviewed by physician. Signing provider agrees with the documented findings, assessment, and plan of care. Objective - Vital Signs Vital signs: Vital Signs Temp 98.2 F 07/10/24 06:51 Pulse 62 07/10/24 06:51 Resp 17 07/10/24 06:51 BP 146/73 07/10/24 06:51 Pulse Ox 95 07/10/24 06:51 FiO2 Intake & Output 07/09/24 07/10/24 07/10/24 18:59 06:59 18:59 Other: Voiding Method Toilet # Voids 4 1 - Labs CBC & Chem 7: 07/10/24 04:03 07/10/24 04:03 Labs: Abnormal Lab Results - Last 24 Hours (Table) 07/09/24 07/10/24 07/10/24 Range/Units 05:20 04:03 04:03 RBC 3.52 L 3.66 L (4.10-5.20) X 10*6/uL Hgb 10.7 L 10.8 L (12.0-15.0) g/dL Hct 35.0 L 33.4 L (37.2-46.3) % MCV 99.4 H (80.0-97.0) FL MCHC 30.6 L (32.0-37.0) g/dL Lymphocytes # 0.69 L 0.88 L (0.90-5.00) X 10*3/uL Chloride 112 H (96-109) mmol/L Carbon Dioxide 17.8 L (21.6-31.8) mmol/L Anion Gap 12.20 H (4.00-12.00) mmol/L BUN 7.8 L (9.0-27.0) mg/dL Calcium 8.0 L (8.7-10.3) mg/dL Assessment and Plan Assessment: Stable for discharge Time with Patient: Less than 30
[2024-07-10 13:43] VITALS: BP 148/60; PULSE 74; RESP 16; TEMP 98.8
--- NOTE | 2024-07-10 13:57 | P.DS ---
Providers Date of admission: 07/06/24 12:43 Expected date of discharge: 07/10/24 Attending physician: Breezy Cronin Consults: 07/06/24 12:41 Consult Physician Urgent Consulting Provider: Randy Bergeron Consult Reason/Comments: Bowel obstruction, parastomal hernia Do you want consulting provider notified?: Already Contacted Primary care physician: Laird Hospital Course: Final Diagnoses: 1) Abdominal pain, suspect stomal colitis Current Visit: Yes Status: Acute Code(s): R10.9 - UNSPECIFIED ABDOMINAL PAIN SNOMED Code(s): 49487712 (2) OAB (overactive bladder) Current Visit: Yes Status: Acute Code(s): N32.81 - OVERACTIVE BLADDER SNOMED Code(s): 515456373 (3) Parastomal hernia Current Visit: Yes Status: Acute Code(s): K43.5 - PARASTOMAL HERNIA WITHOUT OBSTRUCTION OR GANGRENE SNOMED Code(s): 835589651 (4) SBO (small bowel obstruction) Current Visit: Yes Status: Acute Code(s): K56.609 - UNSP INTESTNL OBST, UNSP TO PARTIAL VERSUS COMPLETE OBST SNOMED Code(s): 545691873 (5) Diverticulitis Current Visit: Yes Status: Acute Code(s): K57.92 - DVTRCLI OF INTEST, PART UNSP, W/O PERF OR ABSCESS W/O BLEED SNOMED Code(s): 907864687 Hospital course: Patient was seen evaluated on the fourth floor. She has an NG tube in place. There is no but 100 cc out per staff for the past 8-hour shifts. There is a small amount in her colostomy bag. She denies any chest pains pressure shortness of breath. Just ongoing abdominal pain. She reports surgery not bedside decompressed here. Vital signs are stable. She is afebrile. Laboratory studies show normal CBC, chemistries are essentially normal with a slightly low potassium 3.4. Urinalysis shows large leukocytes but appears to be contaminated specimen. Family is at bedside. July 08, 2024: Patient is feeling much better. NG tube is out. She is tolerating clear liquid diet. Her pain is much improved. Small amount in her colostomy bag currently. No chest pain pressure shortness of breath nausea or vomiting. She remains on ceftriaxone and Flagyl at this point. Has hydromorphone for pain. 07/09/2024 NG tube discontinued yesterday. Complains of nausea, no emesis and decreased appetite. Diet not advanced, remains on clear liquid diet. Zofran frequency increased with the addition of Compazine as per general surgery. Afebrile, normal WBC. Renal function stable. Maintained on ceftriaxone, Flagyl, antiemetics. Pain management. PPI in place for GI prophylaxis. diet advancement as per general surgery. increase activity as tolerated. aggressive pulmonary toileting with incentive spirometer ordered.Close monitoring of coags, electrolytes and renal function with repeat labs ordered for a.m. Significant clinical improvement. Currently denies nausea, vomiting. Diet advanced to full liquids as per general surgery, tolerating well. Afebrile, normal WBC. Denies pain. Denies chest pain, palpitations or shortness of breath. Patient will be discharged home today in a stable condition with guarded prognosis pending final DC recommendations and clearance as per general surgery. The impression and plan of care has been dictated as directed. : I performed a history and examination of this patient, discussed the same with the dictator. I agree with the dictator's note ,documented as a scribe. Any additional findings or plans will be noted. Patient Condition at Discharge: Stable Plan - Discharge Summary New Discharge Prescriptions: New metroNIDAZOLE [Flagyl] 500 mg PO TID #21 tab cefuroxime axetiL [Ceftin] 500 mg PO BID #14 tab Continue Oxybutynin ER [Ditropan XL] 10 mg PO DAILY Discharge Medication List Oxybutynin ER [Ditropan XL] 10 mg PO DAILY 07/06/24 [History] cefuroxime axetiL [Ceftin] 500 mg PO BID #14 tab 07/10/24 [Rx] metroNIDAZOLE [Flagyl] 500 mg PO TID #21 tab 07/10/24 [Rx] Follow up Appointment(s)/Referral(s): Chau Brennan Jr, [Primary Care Provider] - 07/19/24 2:45 pm
== END 2024-07-10 16:06 | disposition home or self-care (01) | DRG 394 ==
LOC: EC 08:45 → 4SSUR 12:43
PROVIDERS: ADMIT Family Medicine; ATTEND Family Medicine
PROC: 0D9670Z Drainage of Stomach with Drainage Device, Via Natural or Artificial Opening (ICD-10-PCS; principal; 2024-07-06)
DX: K94.09 Other complications of colostomy (principal); K56.609 Unspecified intestinal obstruction, unspecified as to partial versus complete obstruction; K57.32 Diverticulitis of large intestine without perforation or abscess without bleeding; K43.5 Parastomal hernia without obstruction or gangrene; N32.81 Overactive bladder; J44.9 Chronic obstructive pulmonary disease, unspecified; E78.5 Hyperlipidemia, unspecified; K21.9 Gastro-esophageal reflux disease without esophagitis; K52.89 Other specified noninfective gastroenteritis and colitis; M81.0 Age-related osteoporosis without current pathological fracture; Z96.651 Presence of right artificial knee joint; I25.2 Old myocardial infarction; Z90.49 Acquired absence of other specified parts of digestive tract; Z87.891 Personal history of nicotine dependence; Z90.710 Acquired absence of both cervix and uterus; Z85.828 Personal history of other malignant neoplasm of skin; Z79.01 Long term (current) use of anticoagulants
CPT/HCPCS: 36415; 71045; 74018; 74177; 80048; 80053; 80076; 81001; 83605; 83690; 85025; 85610; 85730; 96361; 96374; 96375; 96376; 99285